=== PATIENT | female | born 1965 | race Caucasian/White ===

== ENCOUNTER 2017-11-23 18:11 | Emergency (ER) | payer OTHER ==
[2017-11-23] MEDS: NORCO, ANEXSIA 5/325MG TABLET (HYDROcodone/ACETAMINOPHEN) PO (18:27)
[2017-11-23] MEDS: NORCO 5/325MG TABLET (BULK FOR ED) PO (19:15)
== END 2017-11-23 19:25 | disposition home or self-care (01) ==
LOC: M ED 18:11
DX: S90.31XA Contusion of right foot, initial encounter (principal); S92.512A Displaced fracture of proximal phalanx of left lesser toe(s), initial encounter for closed fracture; W10.9XXA Fall (on) (from) unspecified stairs and steps, initial encounter; Y92.099 Unspecified place in other non-institutional residence as the place of occurrence of the external cause; Y93.9 Activity, unspecified; Y99.9 Unspecified external cause status; I10 Essential (primary) hypertension; Z72.0 Tobacco use; Z79.899 Other long term (current) drug therapy; Z88.0 Allergy status to penicillin
CPT/HCPCS: 73630

== ENCOUNTER 2019-02-10 16:13 | Emergency (ER) | payer OTHER ==
[~2019-02-10] VITALS: Ht 167.6 cm; Wt 81.8 kg
[~2019-02-10 16:13] MED LIST: CITA10TA2 PO; CITA20TA6 PO; DILT1CAP PO; ESTR0.022 PO; ESTR1TAB PO; FERR83TA2 PO; HYDR-3644 PO; HYDR-3715 PO; LEVO-94 PO; LEVO100T4 PO; NEXI20GR PO; PANT20TA2 PO; PRED2.5T PO; SPIR-10 PO; TIAZAC PO; TORS10TA3 PO; VERA120T2 PO
--- NOTE | 2019-02-10 16:55 | REP ---
CHEST: Single view. There is no evidence of acute infiltrate. No pleural effusion is seen. The heart is normal in size. The mediastinal silhouette is unremarkable. The visualized osseous structures are intact. IMPRESSION: No acute pulmonary disease. Electronically Signed by Ruben Cornejo MD 02/11/2019 07:13 P
[2019-02-10 17:19] LABS: BASO # 0.1 10^3/uL (0.0-0.2); BASO % 0.9 % (0.0-1.0); EOS # 0.1 10^3/uL (0.0-0.5); EOS % 1.1 % (0.0-3.0); HEMATOCRIT 46.6 % (36.0-47.0); HEMOGLOBIN 16.2 g/dl (12.0-15.5); LYMPH # 2.4 10^3/uL (1.5-5.0); LYMPH % 19.9 % (24.0-44.0); MEAN CORPUSCULAR HGB CONC 34.8 g/dl (32.0-36.5); MEAN CORPUSCULAR VOLUME 103.6 fl (80.0-96.0); MONO # 1.2 10^3/uL (0.0-0.8); MONO % 10.4 % (0.0-5.0); NEUTROPHILS # 7.8 10^3/uL (1.5-8.5); NEUTROPHILS % 66.4 % (36.0-66.0); WHITE BLOOD COUNT 11.8 10^3/uL (4.0-10.0)
[2019-02-10 17:29] LABS: BLOOD UREA NITROGEN 7 MG/DL (7-18); CALCIUM LEVEL 9.8 MG/DL (8.5-10.1); CARBON DIOXIDE LEVEL 32 MEQ/L (21-32); CHLORIDE LEVEL 99 MEQ/L (98-107); CK-MB VALUE MASS 1.2 NG/ML (<3.6); CPK CREATINE PHOSPHOKINASE 62 U/L (26-192); CREATININE FOR GFR 0.68 MG/DL (0.55-1.30); GLOMERULAR FILTRATION RATE > 60.0 (>51); GLUCOSE, FASTING 88 MG/DL (70-100); MB/CK RELATIVE INDEX 1.94 (< OR =4); POTASSIUM SERUM 3.3 MEQ/L (3.5-5.1); SODIUM LEVEL 140 MEQ/L (136-145); TROPONIN I < 0.02 NG/ML (< 0.10)
[2019-02-10] MEDS ORDERED: ALPRAZolam 0.5 MG TAB PO ONE (17:45)
[2019-02-10 17:52] LABS: FREE THYROXINE INDEX 4.2 % (1.3-4.8); MAGNESIUM LEVEL 1.4 MG/DL (1.8-2.4); T UPTAKE 33 % (30-39); THYROID STIMULATING HORMONE 0.553 uIU/ML (0.358-3.740); THYROXINE (T4) 12.6 UG/DL (4.5-12.0)
[2019-02-10 18:16] LABS: PLATELET COUNT, AUTOMATED 70 10^3/uL (150-450)
[2019-02-10] MEDS ORDERED: HYDR-643 PO (19:17)
[2019-02-10 19:29] VITALS: BP 162/86
--- NOTE | 2019-02-11 08:07 | ECGEPIP ---
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
== END 2019-02-10 19:34 | disposition home or self-care (01) ==
LOC: EDBD 16:13 → M ED 16:13
DX: F41.1 Generalized anxiety disorder (principal); I51.9 Heart disease, unspecified; E07.9 Disorder of thyroid, unspecified; Z79.890 Hormone replacement therapy; Z79.899 Other long term (current) drug therapy; Z88.0 Allergy status to penicillin

== ENCOUNTER 2019-05-07 15:50 | Inpatient (IN) | payer OTHER ==
[~2019-05-07] VITALS: Ht 170.2 cm; Wt 80.0 kg
[~2019-05-07 15:50] MED LIST changes: +HYDR-643 PO
[2019-05-07] MEDS ORDERED: BUSP5TA PO (16:08)
--- NOTE | 2019-05-07 17:10 | REP ---
PA and lateral chest: Comparisons are the portable chest dated 02/10/2019 and the PA and lateral chest dated 11/12/2012. The lung abreu are clear. The cardiac size is normal. The cande, mediastinum, and skeletal structures are unremarkable. Impression: Negative PA and lateral chest. There are no significant interval changes. Electronically Signed by Ruben Zelaya MD 05/07/2019 05:02 P
[2019-05-07] MEDS ORDERED: NS 1,000 ML IV ONE (17:15)
[2019-05-07] MEDS ORDERED: KETOROLAC 30 MG/ML VIAL (J1885) IV ONE (17:15)
[2019-05-07 18:31] LABS: BASO # 0.2 10^3/uL (0.0-0.2); BASO % 0.4 % (0.0-1.0); EOS % 0.1 % (0.0-3.0); LYMPH # 2.6 10^3/uL (1.5-5.0); LYMPH % 6.8 % (24.0-44.0); MONO # 1.7 10^3/uL (0.0-0.8); MONO % 4.3 % (0.0-5.0); NEUTROPHILS % 85.5 % (36.0-66.0)
--- NOTE | 2019-05-07 18:41 | REPVR ---
PROCEDURE INFORMATION: Exam: US Duplex Right Lower Extremity Veins, Limited Exam date and time: 05/07/2019 6:15 PM Age: 53 years old Clinical indication: Pain; Leg, upper and leg, lower; Right; Additional info: R/O dvt TECHNIQUE: Imaging protocol: Real-time Duplex ultrasound of the Right Lower Extremity with 2-D vogt scale, color Doppler flow and spectral waveform analysis with image documentation. Limited exam was focused on the right lower extremity veins. COMPARISON: US Duplex, Ext LOWER veins, bilat 08/04/2012 6:45 PM FINDINGS: Right deep veins: Unremarkable. The common femoral, femoral, proximal profunda femoral and popliteal veins are patent without thrombus. Normal Doppler waveforms. Normal compressibility and/or augmentation response. Right superficial veins: Unremarkable. Saphenofemoral junction is patent without thrombus. Soft tissues: Complex fluid collection in the right groin measuring 4.5 x 1.4 x 1.8 cm. IMPRESSION: No DVT of the right lower extremity. Electronically signed by: Manuel Ang On 05/07/2019 18:41:29 PM
[2019-05-07 18:45] LABS: ALBUMIN 3.1 GM/DL (3.2-5.2); BILIRUBIN,DIRECT 0.4 MG/DL (0.0-0.2); BILIRUBIN,TOTAL 1.2 MG/DL (0.2-1.0); POTASSIUM SERUM 2.7 MEQ/L (3.5-5.1); TOTAL PROTEIN 6.9 GM/DL (6.4-8.2)
[2019-05-07 19:02] LABS: ERYTHROCYTE SEDIMENTATION RATE 10 mm/hr (0-30)
--- NOTE | 2019-05-07 19:02 | ECGEPIP ---
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
[2019-05-07] MEDS ORDERED: IPRATROPIUM 0.5MG/ALBUTEROL 2.5MG INH SOL UD 3ML (DUONEB)(J7620) NEB ONE (19:30)
[2019-05-07] MEDS ORDERED: POTASSIUM CHLORIDE 10 MEQ SR TABLET PO ONE (19:30)
[2019-05-07 19:41] LABS: HEMATOCRIT 41.9 % (36.0-47.0); HEMOGLOBIN 15.2 g/dl (12.0-15.5); MEAN CORPUSCULAR HEMOGLOBIN 36.3 pg (27.0-33.0); PLATELET COUNT, AUTOMATED 14 10^3/uL (150-450); RED BLOOD COUNT 4.19 10^6/uL (4.00-5.40)
[2019-05-07 19:42] LABS: MEAN CORPUSCULAR HGB CONC 36.3 g/dl (32.0-36.5); NEUTROPHILS # 32.9 10^3/uL (1.5-8.5); WHITE BLOOD COUNT 38.5 10^3/uL (4.0-10.0)
[2019-05-07] MEDS ORDERED: CLINDAMYCIN 600 MG in IV 1 EA IV ONE (20:00)
[2019-05-07] MEDS ORDERED: TORS5TAB2 PO (20:51)
[2019-05-07] MEDS: BACTRIM 160MG/800MG DS TAB PO SCH (21:16)
[2019-05-07] MEDS: methylPREDNISolone INJ 125 MG/2 ML VIAL (J2930) IV SCH (21:17)
--- NOTE | 2019-05-07 21:56 | HPEPDOC ---
[facility] Medical History & Physical Date of Admission May 07, 2019 Date of Service: May 07, 2019 Attending Physician: BEBA SIFUENTSE MD History and Physical CHIEF COMPLAINT: Fever and lower extremity redness HISTORY OF PRESENT ILLNESS: 53-year-old female with past medical history of ITP status post splenectomy, hypertension and hypothyroidism presents from home with fever and right lower extremity redness. Patient was doing well up until yesterday when she developed fever, associated with mild dyspnea, along with a right lower extremity redness and groin pain. Patient has a chronic wound on her right foot, third toe wound which she has not received any care for. Patient has some redness and warmth above her ankle in the right leg, which also started recently. She has no complaints at this time, denies any cough, chest pain, vomiting, abdominal pain or diarrhea. 10 point review of system is negative except for above PAST MEDICAL HISTORY: 1. ITP. 2. Hypertension. 3. Hypothyroidism. PAST SURGICAL HISTORY: 1. Splenectomy. 2. Hysterectomy. SOCIAL HISTORY: Current smoker, half a pack per day. Social alcohol use. Denies drug use FAMILY HISTORY: Negative for heart disease ALLERGIES: Please see below. HOME MEDICATIONS: Please see below. PHYSICAL EXAMINATION: VITAL SIGNS: Please see below. GENERAL: No distress HEENT: Normocephalic, atraumatic, moist mucous membranes NECK: Supple CARDIOVASCULAR EXAMINATION: S1, S2, no murmurs RESPIRATORY EXAMINATION: Clear to auscultation, no wheezing ABDOMINAL EXAMINATION: Soft, nontender, nondistended, positive bowel sounds EXTREMITIES: Right foot third toe with open wound on the plantar surface, minimal swelling, no redness or drainage, mild tenderness. Right groin with palpable mass and mild tenderness to palpation SKIN: Mild erythema in right lower extremity above the ankle, trace edema, warm to touch NEUROLOGICAL EXAMINATION: Alert and oriented 3, no focal deficits PSYCHIATRIC EXAMINATION: Calm and cooperative LABORATORY DATA: See below. IMAGING: Lower extremity Doppler negative for DVT MICROBIOLOGY: Please see below. ASSESSMENT: 53-year-old female with past medical history of ITP status post colectomy, hypertension, hypothyroidism, being admitted for her to be flare and possible cellulitis. PLAN: 1. ITP flare Treat with high-dose steroids, Solu-Medrol 30 mg/kg per day for 7 days, no need for IVIG at this time, will monitor clinical progression and platelet levels. 2. Cellulitis. Possible right lower extremity cellulitis, Bactrim 1 tab twice a day. 3. Hypokalemia. Potassium 2.7, will supplement by mouth and IV. 4. Hypertension. Continue home spironolactone 5. Hypothyroidism. Continue levothyroxine DVT prophylaxis: SCDs GI prophylaxis: PPI Vital Signs Vital Signs Date Time Temp Pulse Resp B/P (MAP) Pulse Ox O2 Delivery O2 Flow Rate FiO2 05/07/19 16:29 05/07/19 15:51 97.7 82 18 96 Room Air Laboratory Data Labs 24H Laboratory Tests 2 05/07/19 17:50: POC Glucose (Misc Panel) 86, POC Sodium (Misc Panel) 130L, POC Potassium (Misc Panel) 2.5*L, POC Chloride (Misc Panel) 90L, POC Total CO2 (Misc Panel) 25.0, POC Blood Urea Nitrogen (Misc Panel 13, POC Ionized Calcium (Misc Panel) 4.1L, POC Creatinine (Misc Panel) 0.6, POC Hematocrit (Misc Panel) 47.0 05/07/19 17:53: Immature Granulocyte % (Auto) 2.9, Neutrophils (%) (Auto) 85.5H, Lymphocytes (%) (Auto) 6.8L, Monocytes (%) (Auto) 4.3, Eosinophils (%) (Auto) 0.1, Basophils (%) (Auto) 0.4, Neutrophils # (Auto) 32.9H, Lymphocytes # (Auto) 2.6, Monocytes # (Auto) 1.7H, Eosinophils # (Auto) 0.0, Basophils # (Auto) 0.2, Nucleated Red Blood Cells % (auto) 0.1H, Immature Platelet Fraction 18.4H, Erythrocyte Sedimentation Rate 10, Lactic Acid Level 1.2, Total Bilirubin 1.2H, Direct Bilirubin 0.4H, Aspartate Amino Transf (AST/SGOT) 35, Alanine Aminotransferase (ALT/SGPT) 26, Alkaline Phosphatase 57, C-Reactive Protein, Quantitative 13.00H, Total Protein 6.9, Albumin 3.1L, Albumin/Globulin Ratio 0.82L CBC/BMP Laboratory Tests 05/07/19 17:53 Microbiology Microbiology 05/07/19 Blood Culture, Received Pending 05/07/19 Blood Culture, Received Pending 05/07/19 Respiratory Virus Panel (PCR) (TJ) - Final, Complete Home Medications Scheduled Buspirone HCl (Buspirone HCl) 5 Mg Tablet, 5 MG PO DAILY Citalopram Hydrobromide (Citalopram HBr) 20 Mg Tab, 20 MG PO DAILY Diltiazem HCl (Diltiazem 24Hr ER) 120 Mg Cap, 120 MG PO DAILY Estradiol (Estradiol) 1 Mg Tab, 1 TAB PO DAILY Levothyroxine Sodium (Levo-T) 137 Mcg Tab, 137 MCG PO DAILY Pantoprazole Sodium (Pantoprazole Sodium) 20 Mg Tab, 20 MG PO DAILY Spironolactone (Spironolactone) 25 Mg Tab, 25 MG PO BID Torsemide (Torsemide) 5 Mg Tablet, 5 MG PO QID Allergies Coded Allergies: Penicillins (Verified Allergy, Intermediate, hives/difficulty breathing, ) A-FIB/CHADSVASC A-FIB History Current/History of A-Fib/PAF?: No BEBA SIFUENTES MD May 07, 2019 21:56
[2019-05-07] MEDS: KCL 10MEQ/100ML SWI (KRUN) 10 MEQ in IV 1 EA IV SCH (22:17)
[2019-05-07] MEDS ORDERED: LORazepam 2 MG TAB PO PRN (22:45)
[2019-05-07 22:53] VITALS: BP 150/82
[2019-05-07] MEDS: ACETAMINOPHEN TAB 650MG DOSE (2X325MG) PO PRN (23:15)
[2019-05-07] MEDS: THIAMINE 100 MG TAB PO SCH (23:15)
[2019-05-08] VITALS (10 sets, daily range): BP systolic 113–134; BP diastolic 57–82
[2019-05-08] MEDS: KCL 10MEQ/100ML SWI (KRUN) 10 MEQ in IV 1 EA IV SCH ×3 (00:03→02:47)
[2019-05-08] MEDS: LEVOTHYROXINE 137MCG TABLET (0.137MG) PO SCH (05:55)
[2019-05-08] MEDS: THIAMINE 100 MG TAB PO SCH ×2 (08:01→20:15)
[2019-05-08] MEDS: estradioL 1 MG TAB PO SCH (08:01)
[2019-05-08] MEDS: CitaloPRAM (CeleXA) 20 MG TAB PO SCH (08:01)
[2019-05-08] MEDS: busPIRone 5 MG TAB PO SCH (08:01)
[2019-05-08] MEDS: BACTRIM 160MG/800MG DS TAB PO SCH ×2 (08:01→20:15)
[2019-05-08] MEDS: MULTIVITAMINS/MINERALS THERAP 1 TAB PO SCH (08:01)
[2019-05-08] MEDS: FOLIC ACID 1 MG TAB PO SCH (08:01)
[2019-05-08] MEDS: SPIRONOLACTONE 25 MG TAB PO SCH ×2 (08:01→20:15)
[2019-05-08] MEDS: PANTOPRAZOLE 20 MG TAB PO SCH (08:04)
[2019-05-08 08:24] LABS: HEMATOCRIT 40.1 % (36.0-47.0); HEMOGLOBIN 14.6 g/dl (12.0-15.5); MEAN CORPUSCULAR HEMOGLOBIN 36.7 pg (27.0-33.0); MEAN CORPUSCULAR HGB CONC 36.4 g/dl (32.0-36.5); MEAN CORPUSCULAR VOLUME 100.8 fl (80.0-96.0); RED BLOOD COUNT 3.98 10^6/uL (4.00-5.40)
[2019-05-08 08:28] LABS: PLATELET COUNT, AUTOMATED 7 10^3/uL (150-450); WHITE BLOOD COUNT 32.8 10^3/uL (4.0-10.0)
[2019-05-08 08:44] LABS: ALBUMIN 2.6 GM/DL (3.2-5.2); ALT/SGPT 22 U/L (12-78); BILIRUBIN,TOTAL 0.4 MG/DL (0.2-1.0); BLOOD UREA NITROGEN 13 MG/DL (7-18); CALCIUM LEVEL 7.9 MG/DL (8.5-10.1); CARBON DIOXIDE LEVEL 23 MEQ/L (21-32); CHLORIDE LEVEL 105 MEQ/L (98-107); CREATININE FOR GFR 0.58 MG/DL (0.55-1.30); GLOMERULAR FILTRATION RATE > 60.0 (>51); GLUCOSE, FASTING 122 MG/DL (70-100); MAGNESIUM LEVEL 1.4 MG/DL (1.8-2.4); POTASSIUM SERUM 3.3 MEQ/L (3.5-5.1); SODIUM LEVEL 136 MEQ/L (136-145); TOTAL PROTEIN 6.7 GM/DL (6.4-8.2)
[2019-05-08] MEDS: POTASSIUM CHLORIDE 10 MEQ SR TABLET PO SCH ×2 (11:10→15:13)
[2019-05-08] MEDS: MAG SULF 1GM/100ML (MAG RUN) 1 GM in IV 1 EA IV SCH ×2 (11:11→13:03)
[2019-05-08] MEDS ORDERED: IMMUNE GLOBULIN 10% 80 GM in IV 1 EA IV SCH (13:30)
[2019-05-08] MEDS ORDERED: MAG SULF 1GM/100ML (MAG RUN) 1 GM in IV 1 EA IV SCH (16:00)
[2019-05-08] MEDS ORDERED: diphenhydrAMINE 25 MG CAP PO ONE ×3 (16:00→19:00)
[2019-05-08] MEDS ORDERED: IMMUNE GLOBULIN 10% 80 GM in IV 1 EA IV ONE (18:00)
[2019-05-08] MEDS: methylPREDNISolone INJ 125 MG/2 ML VIAL (J2930) IV SCH (20:15)
--- NOTE | 2019-05-08 23:37 | IPNPDOC ---
Date Seen The patient was seen on 05/08/19. Progress Note HISTORY OF PRESENT ILLNESS: 53-year-old female with past medical history of ITP status post splenectomy, hypertension and hypothyroidism presents from home with fever and right lower extremity redness. Patient was doing well up until yesterday when she developed fever, associated with mild dyspnea, along with a right lower extremity redness and groin pain. Patient has a chronic wound on her right foot, third toe wound which she has not received any care for. Patient has some redness and warmth above her ankle in the right leg, which also started recently. She has no complaints at this time, denies any cough, chest pain, vomiting, abdominal pain or diarrhea. 05/08/19 Seen in the morning, clinically improved, without any complaints at this time, tolerating diet. 10 point review of system is negative except for above PHYSICAL EXAMINATION: VITAL SIGNS: Please see below. GENERAL: No distress HEENT: Normocephalic, atraumatic, moist mucous membranes NECK: Supple CARDIOVASCULAR EXAMINATION: S1, S2, no murmurs RESPIRATORY EXAMINATION: Clear to auscultation, no wheezing ABDOMINAL EXAMINATION: Soft, nontender, nondistended, positive bowel sounds EXTREMITIES: Right foot third toe with open wound on the plantar surface, minimal swelling, no redness or drainage, mild tenderness. SKIN: Mild erythema in right lower extremity above the ankle, trace edema, warm to touch NEUROLOGICAL EXAMINATION: Alert and oriented 3, no focal deficits PSYCHIATRIC EXAMINATION: Calm and cooperative LABORATORY DATA: See below. IMAGING: Lower extremity Doppler negative for DVT MICROBIOLOGY: Please see below. ASSESSMENT: 53-year-old female with past medical history of ITP status post colectomy, hypertension, hypothyroidism, being admitted for her to be flare and possible cellulitis. PLAN: 1. ITP flare Continue Solu-Medrol 250 mg daily, Dr. Campos from hematology/oncology was consulted who agrees with IVIG (80 g per day for 2 days) and recommends 2 units of platelets at this time, additional workup studies were ordered. 2. Cellulitis/possible osteomyelitis. Significantly elevated CRP and pro-calcitonin, start empiric vancomycin and Merrem, will obtain right foot MRI to rule out osteomyelitis, blood cultures negative to date. 3. Hypokalemia. Continue oral supplementation 4. Hypertension. Continue home spironolactone 5. Hypothyroidism. Continue levothyroxine DVT prophylaxis: SCDs GI prophylaxis: PPI VS, I&O, 24H, Fishbone Vital Signs/I&O Vital Signs Date Time Temp Pulse Resp B/P (MAP) Pulse Ox O2 Delivery O2 Flow Rate FiO2 05/08/19 22:00 98.0 68 18 132/79 (96) 96 Room Air I&O- Last 24 Hours up to 6 AM 05/08/19 06:00 Intake Total 1900 ml Balance 1900 ml Laboratory Data 24H LABS Laboratory Tests 2 05/08/19 08:08: Nucleated Red Blood Cells % (auto) 0.2H, Differential Slide Review Report, Peripheral Blood Smear Path Consult PERIPHERAL SMEAR, Anion Gap 8, Glomerular Filtration Rate > 60.0, Calcium Level 7.9L, Magnesium Level 1.4L, Total Bilirubin 0.4#, Aspartate Amino Transf (AST/SGOT) 26, Alanine Aminotransferase (ALT/SGPT) 22, Alkaline Phosphatase 50, Total Protein 6.7, Albumin 2.6L, Albumin/Globulin Ratio 0.63L, Procalcitonin 13.82 CBC/BMP Laboratory Tests 05/08/19 08:08 Microbiology Microbiology 05/07/19 Blood Culture - Preliminary, Resulted No growth after 24 hours . All specim... 05/07/19 Blood Culture - Preliminary, Resulted No growth after 24 hours . All specim... 05/07/19 Respiratory Virus Panel (PCR) (TJ) - Final, Complete BEBA SIFUENTES MD May 08, 2019 23:36
[2019-05-08] MEDS ORDERED: VANCOMYCIN HCL 1,000 MG, VIAL MATE ADAPTER 1 EACH in D5W 250 ML IV ONE (23:45)
[2019-05-09] VITALS (28 sets, daily range): BP systolic 95–163; BP diastolic 53–85
[2019-05-09] MEDS: LEVOTHYROXINE 137MCG TABLET (0.137MG) PO SCH (06:14)
[2019-05-09 06:18] LABS: BASO # 0.1 10^3/uL (0.0-0.2); BASO % 0.2 % (0.0-1.0); HEMATOCRIT 39.7 % (36.0-47.0); HEMOGLOBIN 13.5 g/dl (12.0-15.5); LYMPH # 0.5 10^3/uL (1.5-5.0); LYMPH % 1.8 % (24.0-44.0); MEAN CORPUSCULAR HEMOGLOBIN 35.6 pg (27.0-33.0); MEAN CORPUSCULAR VOLUME 104.7 fl (80.0-96.0); MONO # 0.8 10^3/uL (0.0-0.8); MONO % 2.9 % (0.0-5.0); NEUTROPHILS % 92.9 % (36.0-66.0); RED BLOOD COUNT 3.79 10^6/uL (4.00-5.40); WHITE BLOOD COUNT 28.8 10^3/uL (4.0-10.0)
[2019-05-09 06:23] LABS: NEUTROPHILS # 26.8 10^3/uL (1.5-8.5); PLATELET COUNT, AUTOMATED 95 10^3/uL (150-450)
[2019-05-09 06:45] LABS: BLOOD UREA NITROGEN 12 MG/DL (7-18); CALCIUM LEVEL 8.2 MG/DL (8.5-10.1); CARBON DIOXIDE LEVEL 24 MEQ/L (21-32); CHLORIDE LEVEL 108 MEQ/L (98-107); CREATININE FOR GFR 0.76 MG/DL (0.55-1.30); GLOMERULAR FILTRATION RATE > 60.0 (>51); GLUCOSE, FASTING 163 MG/DL (70-100); POTASSIUM SERUM 4.7 MEQ/L (3.5-5.1); SODIUM LEVEL 136 MEQ/L (136-145)
[2019-05-09] MEDS: MAG SULF 1GM/100ML (MAG RUN) 1 GM in IV 1 EA IV SCH ×2 (08:34→10:00)
[2019-05-09] MEDS: MEROPENEM INJ 1 GM in IV 1 EA IV SCH ×2 (08:34→17:48)
[2019-05-09] MEDS ORDERED: MAG SULF 1GM/100ML (MAG RUN) 1 GM in IV 1 EA IV SCH (09:00)
[2019-05-09] MEDS: SPIRONOLACTONE 25 MG TAB PO SCH ×2 (09:21→20:32)
[2019-05-09] MEDS: FOLIC ACID 1 MG TAB PO SCH (09:21)
[2019-05-09] MEDS: estradioL 1 MG TAB PO SCH (09:24)
[2019-05-09] MEDS: busPIRone 5 MG TAB PO SCH (09:24)
[2019-05-09] MEDS: MULTIVITAMINS/MINERALS THERAP 1 TAB PO SCH (09:24)
[2019-05-09] MEDS: CitaloPRAM (CeleXA) 20 MG TAB PO SCH (09:24)
[2019-05-09] MEDS: PANTOPRAZOLE 20 MG TAB PO SCH (09:24)
[2019-05-09] MEDS: THIAMINE 100 MG TAB PO SCH ×2 (09:24→20:32)
[2019-05-09] MEDS ORDERED: MAGNESIUM SULFATE 1 GM/100 ML D5W BAG (10MG/ML) (J3475) As Ordered ONE (09:25)
--- NOTE | 2019-05-09 10:26 | CR ---
DATE OF CONSULTATION: 05/08/2019 DIAGNOSIS: ITP with profound thrombocytopenia status post splenectomy admitted with fever, leukocytosis and platelets below 10. REQUESTING PHYSICIAN: Dr. Dobbins, hospitalist service. HISTORY OF PRESENT ILLNESS: Meredith Laws is a 53-year-old woman with a 20-40 pack-year smoking history and personal history of ITP diagnosed in 2011 when she presented with flank discomfort. Details are scant. She is a sketchy historian but she describes being transferred first to [facility] and then to [facility], ultimately being followed by Dr. Prakash. She was initially treated with high-dose steroids and IVIG, presumptively also with platelet transfusions. Then as an outpatient, she was on what she describes as multiple steroid tapers. Ultimately, in 2012 she underwent splenectomy. She continued to follow up with Dr. Prakash after that, still requiring steroid tapers. She denies ever receiving rituximab or other medicines for her thrombocytopenia. Of note, she presented with hemoptysis in 2011 and some flank discomfort leading to her diagnosis. She denies hemoptysis currently but several days ago noticed some bruising around her right ankle, had a fever Saturday night and body aching and sweating. In the emergency room here yesterday, WBC was 38.5, hemoglobin 15, hematocrit 42, platelets 14 with immature platelet fraction 18%, ESR was 10. She was started on steroids. The following morning, this morning, platelets had dropped to 7. Vital signs during this admission normal. Right lower extremity ultrasound negative for DVT and also notes complex fluid collection in the right groin measuring up to 4.5 cm. Chest x-ray with normal cardiac size, clear lung abreu, normal appearing mediastinum and skeletal structures unremarkable. Chemistries overall unremarkable. Normal renal and liver function, mild hypomagnesemia and hypokalemia, albumin 2.6. In contrast, in January, platelets were 70. Immature platelet fraction 13, magnesium again low, potassium also mildly low at that time, albumin not checked. Deeper chart review shows chronic leukocytosis since at least 2011 ranging from 10-21; the current leukocytosis in the 30s is definitely new. PAST MEDICAL HISTORY: Hypertension, 20 - 30 pack-year smoking history started at age 17, the patient reports that most one half-pack per day currently smoking, hypothyroidism, gastroesophageal reflux disease (GERD), anxiety. PAST SURGICAL HISTORY: Appendectomy, gastric sleeve, REBECCA-BSO, right foot fracture. ALLERGIES: PENICILLIN. CURRENT MEDICATIONS: - buspirone - citalopram - diltiazem - Estradiol - pantoprazole - spironolactone - folic acid - multivitamin - levothyroxine - lorazepam - acetaminophen In addition, inpatient receiving: - Bactrim DS - methylprednisolone - electrolyte repletion SOCIAL HISTORY: The patient is a . She has three daughters, one of them lives nearby. 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 Approximate 30 pack-year smoking history, current smoker. Alcohol: Drinks on Fridays and Saturdays up to four drinks each night. Her primary care is Dr. Barrett at [facility]. FAMILY HISTORY: Negative for malignancy. REVIEW OF SYSTEMS: Meredith denies hemoptysis. Has a chronic smoker's cough, acknowledges some easy bruising some times. Denies unintended weight loss, new musculoskeletal pain, headache, visual disturbance, chest pain, abdominal pain or frequent infections. FOCUSED PHYSICAL EXAM: Vital signs: Temperature 98.1, blood pressure 132/79, heart rate 68, respiratory rate 18, oxygen saturation 96% on room air. Patient is a normal weight, slender older for age appearing middle aged woman, cheerful, good historian. HEENT: No scleral icterus. Respiratory: Quite dense inspiratory wheezes bilaterally with some honking sounds. Cardiac: S1, S2. Regular rate and rhythm. No murmur nor gallop. Abdomen: Soft, nontender. No palpable hepatomegaly. No dullness in the spleen area. No palpable mass. Extremities: No edema. Lymph nodes: No palpable submandibular, cervical, supraclavicular or axillary adenopathy. No palpable inguinal adenopathy. There is just a kind of fluctuant fullness in the right inguinal area without the appearance of any swelling. No erythema or warmth. Skin: Some blotchy, non blanching coalesced petechiae versus cellulitic rash involving the right ankle pretibial area with some slight scattered petechiae and/or streaky ecchymoses involving the left ankle. No inguinal area petechiae. No abdominal or truncal petechiae. LABORATORIES: As described. IMPRESSION: 53-year-old woman with history of ITP, status post splenectomy many years ago and a history of requiring recurrent steroid tapers following her splenectomy, admitted with fever, malaise and found to have profound thrombocytopenia, dropping from 14 to 7 of platelet count in 12 hours with what looks like petechiae involving her right ankle, though she denies any trauma to that area and possible left ankle petechiae without any other sites. At least 30 pack-year smoking history, current smoker with dense wheezes on chest exam, borderline candidate in terms of age for low-dose lung screening. Fever without explanation or cause. New acute on chronic leukocytosis, uncertain etiology. My suspicion is Meredith has an acute on chronic episode of ITP as opposed to another hematologic process driving her platelet drop. The leukocytosis may be secondary to infection, possibly secondary to another hematologic process, it could also be secondary to smoking as she is a chronic smoker and has had chronic mild leukocytosis for years. Peripheral smear is overall unremarkable showing new leukocytosis with left shift and low platelet count. PLAN: 1. I agree with current high-dose steroids with Solu-Medrol. 2. Complete platelet transfusion and IVIG treatment as already ordered. 3. Follow platelet count q. 12 hours. Continue platelet transfusions for platelet count less than 10 due to risk of intracranial bleed spontaneously; and for platelet count less than 20 with evidence of bleeding, such as petechiae. 4. I am unsure whether [facility] has a cellulitis or whether her fever may be due to another process as yet unclear. Given her smoking history and her fairly abnormal lung sounds on exam, chest CT with contrast seems warranted to rule out an underlying pneumonia and/or possible malignant process, for which she is at risk. Thank you for this consult. We will follow.
--- NOTE | 2019-05-09 12:54 | PHACANCOPD ---
PHARMACY VANCOMYCIN DOSING Pt Demographics Demographics Patient Age:53 , Weight:80.000 , Gender: female Adjusted Body Weight Date: 05/09/19, Adjusted Body Weight: Kg Events Past 24 Hours Events Past 24 Hours: YES: Change in CrCl, Elevation in WBC Vancomycin Vancomycin indication: Empiric Coverage for SSTI/Osteomyelitis Vancomycin Target Ranges: 15-20 mcg/ml Vancomycin Load Y/N: Yes Load Dose Date Time Vancomycin Load Dose: 1000mg Date: 05/09/19 Time: 1100 Vancomycin Dose Date: 05/09/19. Current Vancomycin Dose: [ 1 gram every 8 hours @1600 ] Intermittent Dosing?: No Labs Labs Vital Signs Label Value Date Time Patient Temperature 96.9 degrees F 05/09/19 0746 Temperature Source Temporal 05/09/19 0746 Patient Temperature 97.5 degrees F 05/09/19 0710 Temperature Source Temporal 05/09/19 0710 Patient Temperature 97.4 degrees F 05/09/19 0640 Temperature Source Temporal 05/09/19 0640 Patient Temperature 97.1 degrees F 05/09/19 0610 Temperature Source Temporal 05/09/19 0610 Item Value Date Time White Blood Count 38.5 10^3/uL *H 05/07/19 1753 White Blood Count 32.8 10^3/uL *H 05/08/19 0808 White Blood Count 28.8 10^3/uL H 05/09/19 0605 Procalcitonin 13.82 NG/ML 05/08/19 0808 Micro Microbiology 05/07/19 Blood Culture - Preliminary, Resulted No growth after 24 hours . All specim... 05/07/19 Blood Culture - Preliminary, Resulted No growth after 24 hours . All specim... 05/07/19 Respiratory Virus Panel (PCR) (TJ) - Final, Complete Creatinine Clearance Date:05/09/19. Creatinine Clearance: [ 87.6 mL/hr ]. Assessment and Plan Maintaining Current Dose?: Yes Reason for dose change: No Dose Change Pharmacist Note Pharmacist Note Date: 05/09/19. Pharmacist note: Patient is a 53-year-old female who has a history of chronic immune thrombocytopenia who was admitted to [facility] for an acute on chronic episode. She was placed on broad-spectrum antibiotics for empiric converage consisting of meropenem and vancomycin for cellulitis and possible osteomyelitis. The patient does not have a history of vancomycin therapy at [facility]. A loading dose of 1 gram was given today at 1100, with a subsequent maintenance dose of 1000mg scheduled every eight hours starting at 1600. A vancomycin trough was scheduled for 1500 tomorrow, with a goal trough of 15-20 mcg/dL for possible osteomyelitis. A BMP was ordered with the morning lab draw for 05/10/19. We will continue to monitor and make adjustments as needed. [facility] May 09, 2019 12:54
[2019-05-09] MEDS: VANCOMYCIN HCL 1,000 MG, VIAL MATE ADAPTER 1 EACH in D5W 250 ML IV SCH (16:32)
[2019-05-09] MEDS ORDERED: IMMUNE GLOBULIN 10% 80 GM in IV 1 EA IV ONE (18:00)
--- NOTE | 2019-05-09 18:44 | IPNPDOC ---
Date Seen The patient was seen on 05/09/19. Progress Note SUBJECTIVE: 53-year-old female with past medical history of ITP status post splenectomy, hypertension and hypothyroidism presents from home with fever and right lower extremity redness. Patient was doing well up until yesterday when she developed fever, associated with mild dyspnea, along with a right lower extremity redness and groin pain. Patient has a chronic wound on her right foot, third toe wound which she has not received any care for. Patient has some redness and warmth above her ankle in the right leg, which also started recently. She has no complaints at this time, denies any cough, chest pain, vomiting, abdominal pain or diarrhea. 05/08/19 Seen in the morning, clinically improved, without any complaints at this time, tolerating diet. 05/09/19 Patient comfortable in bed, clinically back to her baseline, without any complaints at this time. 10 point review of system is negative except for above PHYSICAL EXAMINATION: VITAL SIGNS: Please see below. GENERAL: No distress HEENT: Normocephalic, atraumatic, moist mucous membranes NECK: Supple CARDIOVASCULAR EXAMINATION: S1, S2, no murmurs RESPIRATORY EXAMINATION: Clear to auscultation, no wheezing ABDOMINAL EXAMINATION: Soft, nontender, nondistended, positive bowel sounds EXTREMITIES: Right foot third toe with open wound on the plantar surface, no redness or drainage, mild tenderness. SKIN: Mild erythema in right lower extremity above the ankle, trace edema, warm to touch NEUROLOGICAL EXAMINATION: Alert and oriented 3, no focal deficits PSYCHIATRIC EXAMINATION: Calm and cooperative LABORATORY DATA: See below. MICROBIOLOGY: Please see below. ASSESSMENT: 53-year-old female with past medical history of ITP status post colectomy, hypertension, hypothyroidism, being admitted for her to be flare and possible cellulitis. PLAN: 1. ITP flare Continue Solu-Medrol 250 mg daily, continue IVIG 80 g per day, second and final dose today, status post 2 units of platelets, significant improvement in platelets noted, further workup pending, hematology evaluation appreciated. 2. Cellulitis/possible osteomyelitis. Significantly elevated CRP and pro-calcitonin, continue empiric vancomycin and Merrem, MRI of right foot pending, blood cultures negative to date. 3. Hypertension. Continue home spironolactone 4. Hypothyroidism. Continue levothyroxine DVT prophylaxis: SCDs GI prophylaxis: PPI VS, I&O, 24H, Fishbone Vital Signs/I&O Vital Signs Date Time Temp Pulse Resp B/P (MAP) Pulse Ox O2 Delivery O2 Flow Rate FiO2 05/09/19 14:20 52 115/62 05/09/19 14:00 96.6 18 95 Room Air I&O- Last 24 Hours up to 6 AM 05/09/19 06:00 Intake Total 2511 ml Balance 2511 ml Laboratory Data 24H LABS Laboratory Tests 2 05/09/19 06:05: Immature Granulocyte % (Auto) 2.2, Neutrophils (%) (Auto) 92.9H, Lymphocytes (%) (Auto) 1.8L, Monocytes (%) (Auto) 2.9, Eosinophils (%) (Auto) 0.0, Basophils (%) (Auto) 0.2, Neutrophils # (Auto) 26.8H, Lymphocytes # (Auto) 0.5L, Monocytes # (Auto) 0.8, Eosinophils # (Auto) 0.0, Basophils # (Auto) 0.1, Nucleated Red Bl ood Cells % (auto) 0.2H, Immature Platelet Fraction 13.8H, Anion Gap 4L, Glomerular Filtration Rate > 60.0, Calcium Level 8.2L 05/09/19 16:57: CBC/BMP Laboratory Tests 05/09/19 06:05 Microbiology Microbiology 05/07/19 Blood Culture - Preliminary, Resulted No growth after 24 hours . All specim... 05/07/19 Blood Culture - Preliminary, Resulted No growth after 24 hours . All specim... 05/07/19 Respiratory Virus Panel (PCR) ([facility]) - Final, Complete BEBA SIFUENTES MD May 09, 2019 18:44
[2019-05-09] MEDS: methylPREDNISolone INJ 125 MG/2 ML VIAL (J2930) IV SCH (20:32)
[2019-05-10] VITALS (7 sets, daily range): BP systolic 116–149; BP diastolic 49–86
[2019-05-10] MEDS: VANCOMYCIN HCL 1,000 MG, VIAL MATE ADAPTER 1 EACH in D5W 250 ML IV SCH ×4 (01:22→16:35)
[2019-05-10] MEDS: MEROPENEM INJ 1 GM in IV 1 EA IV SCH ×3 (02:43→18:11)
[2019-05-10] MEDS: LEVOTHYROXINE 137MCG TABLET (0.137MG) PO SCH (05:27)
[2019-05-10 07:02] LABS: BASO % 0.2 % (0.0-1.0); HEMATOCRIT 38.6 % (36.0-47.0); HEMOGLOBIN 13.5 g/dl (12.0-15.5); LYMPH # 0.8 10^3/uL (1.5-5.0); LYMPH % 4.5 % (24.0-44.0); MEAN CORPUSCULAR HEMOGLOBIN 36.9 pg (27.0-33.0); MEAN CORPUSCULAR VOLUME 105.5 fl (80.0-96.0); MONO # 0.8 10^3/uL (0.0-0.8); MONO % 4.5 % (0.0-5.0); NEUTROPHILS # 15.5 10^3/uL (1.5-8.5); NEUTROPHILS % 88.7 % (36.0-66.0); PLATELET COUNT, AUTOMATED 187 10^3/uL (150-450); RED BLOOD COUNT 3.66 10^6/uL (4.00-5.40); WHITE BLOOD COUNT 17.5 10^3/uL (4.0-10.0)
[2019-05-10 07:24] LABS: BLOOD UREA NITROGEN 15 MG/DL (7-18); CALCIUM LEVEL 8.2 MG/DL (8.5-10.1); CARBON DIOXIDE LEVEL 22 MEQ/L (21-32); CHLORIDE LEVEL 110 MEQ/L (98-107); CREATININE FOR GFR 0.66 MG/DL (0.55-1.30); GLOMERULAR FILTRATION RATE > 60.0 (>51); GLUCOSE, FASTING 130 MG/DL (70-100); MAGNESIUM LEVEL 2.6 MG/DL (1.8-2.4); POTASSIUM SERUM 4.2 MEQ/L (3.5-5.1); SODIUM LEVEL 134 MEQ/L (136-145)
[2019-05-10] MEDS: THIAMINE 100 MG TAB PO SCH (08:30)
[2019-05-10] MEDS: SPIRONOLACTONE 25 MG TAB PO SCH ×2 (08:34→20:57)
[2019-05-10] MEDS: MULTIVITAMINS/MINERALS THERAP 1 TAB PO SCH (08:34)
[2019-05-10] MEDS: PANTOPRAZOLE 20 MG TAB PO SCH (08:34)
[2019-05-10] MEDS: FOLIC ACID 1 MG TAB PO SCH (08:34)
[2019-05-10] MEDS: busPIRone 5 MG TAB PO SCH (08:34)
[2019-05-10] MEDS: CitaloPRAM (CeleXA) 20 MG TAB PO SCH (08:34)
[2019-05-10] MEDS: estradioL 1 MG TAB PO SCH (08:41)
--- NOTE | 2019-05-10 10:24 | REP ---
REASON FOR EXAM: Assess for osteomyelitis involving the 3rd digit. COMPARISON: None. Dose of contrast administration has not been reported. There is patchy and somewhat diffuse T2 hypersignal seen throughout the plantar soft tissues. Motion artifact obscures precise detailed imaging of the distal aspects of all digits. There is some evidence of diffuse T2 hypersignal in the distal phalanx of the 3rd digit. However, this is seen only on the sagittal images. There is no evidence of a gross joint effusion. Degenerative changes are seen throughout the foot and particularly the midfoot. Asymmetric joint space narrowing is seen involving the 1st and 2nd cuneiform-metatarsal joints with subchondral T2 hypersignal and tiny subchondral cyst formation. Limited evaluation of all imaged flexor and extensor tendons shows them to be intact and of normal appearing low signal throughout. There is no evidence of an abscess. IMPRESSION: 1. Exam limitations, as described above. There is mild but diffuse edema throughout the plantar soft tissues, which is nonspecific. There is no definite evidence of osteomyelitis; however, there is some evidence to suggest diffuse marrow edema involving the distal aspect of the 3rd digit, which is the digit of interest as per history. Followup is recommended if clinically relevant. 2. There are degenerative changes, as described above, involving the foot. In addition, there are degenerative changes seen involving the ankle region. Unreviewed
--- NOTE | 2019-05-10 13:52 | IPN ---
DATE: 05/10/2019 DIAGNOSIS: Idiopathic thrombocytopenia purpura (ITP). INTERVAL HISTORY: Meredith has had an excellent response to Solu-Medrol and IVIG, and her leukocytosis is improved. Platelets today 187. I spoke with her this afternoon to suggest prednisone taper, quite slow and gradual, and followup in outpatient clinic after her discharge. She was agreeable to this. ODALIS
[2019-05-10] MEDS: methylPREDNISolone INJ 125 MG/2 ML VIAL (J2930) IV SCH (20:57)
--- NOTE | 2019-05-10 22:26 | IPNPDOC ---
Date Seen The patient was seen on 05/10/19. Progress Note SUBJECTIVE: 53-year-old female with past medical history of ITP status post splenectomy, hypertension and hypothyroidism presents from home with fever and right lower extremity redness. Patient was doing well up until yesterday when she developed fever, associated with mild dyspnea, along with a right lower extremity redness and groin pain. Patient has a chronic wound on her right foot, third toe wound which she has not received any care for. Patient has some redness and warmth above her ankle in the right leg, which also started recently. She has no complaints at this time, denies any cough, chest pain, vomiting, abdominal pain or diarrhea. 05/08/19 Seen in the morning, clinically improved, without any complaints at this time, tolerating diet. 05/09/19 Patient comfortable in bed, clinically back to her baseline, without any complaints at this time. 05/10/19 No acute events overnight, now asymptomatic, without any complaints at this time. 10 point review of system is negative except for above PHYSICAL EXAMINATION: VITAL SIGNS: Please see below. GENERAL: No distress HEENT: Normocephalic, atraumatic, moist mucous membranes NECK: Supple CARDIOVASCULAR EXAMINATION: S1, S2, no murmurs RESPIRATORY EXAMINATION: Clear to auscultation, no wheezing ABDOMINAL EXAMINATION: Soft, nontender, nondistended, positive bowel sounds EXTREMITIES: Right foot third toe with open wound on the plantar surface, no redness or drainage, mild tenderness. SKIN: Mild erythema in right lower extremity above the ankle, trace edema, warm to touch NEUROLOGICAL EXAMINATION: Alert and oriented 3, no focal deficits PSYCHIATRIC EXAMINATION: Calm and cooperative LABORATORY DATA: See below. MICROBIOLOGY: Please see below. ASSESSMENT: 53-year-old female with past medical history of ITP status post colectomy, hypertension, hypothyroidism, being admitted for her to be flare and possible cellulitis. PLAN: 1. ITP flare Continue Solu-Medrol 250 mg daily, s/p IVIG, status post 2 units of platelets, significant improvement in platelets, plan for steroid taper & discharge tomorrow, hematology evaluation appreciated. 2. Cellulitis/possible osteomyelitis. Significantly elevated CRP and pro-calcitonin, continue empiric vancomycin and Merrem, MRI with edema of 3rd digit, no discrete osteo although study was of poor quality, has had significant improvement after initiation of broad spectrum antibiotics, will attempt to get inpatient Podiatry evaluation if possible, otherwise will arrange for outpatient follow up, blood cultures negative to date. 3. Hypertension. Continue home spironolactone 4. Hypothyroidism. Continue levothyroxine DVT prophylaxis: SCDs GI prophylaxis: PPI VS, I&O, 24H, Fishbone Vital Signs/I&O Vital Signs Date Time Temp Pulse Resp B/P (MAP) Pulse Ox O2 Delivery O2 Flow Rate FiO2 05/10/19 14:00 96.5 55 18 149/81 (103) 98 Room Air I&O- Last 24 Hours up to 6 AM 05/10/19 05:59 Intake Total 2560 ml Balance 2560 ml Laboratory Data 24H LABS Laboratory Tests 2 05/10/19 06:41: Immature Granulocyte % (Auto) 2.1, Neutrophils (%) (Auto) 88.7H, Lymphocytes (%) (Auto) 4.5L, Monocytes (%) (Auto) 4.5, Eosinophils (%) (Auto) 0.0, Basophils (%) (Auto) 0.2, Neutrophils # (Auto) 15.5H, Lymphocytes # (Auto) 0.8L, Monocytes # (Auto) 0.8, Eosinophils # (Auto) 0.0, Basophils # (Auto) 0.0, Nucleated Red Blood Cells % (auto) 0.2H, Anion Gap 2L, Glomerular Filtration Rate > 60.0, Calcium Level 8.2L, Magnesium Level 2.6H 05/10/19 15:10: Vancomycin Level Trough 14.6 CBC/BMP Laboratory Tests 05/10/19 06:41 Microbiology Microbiology 05/07/19 Blood Culture - Preliminary, Resulted No Growth after 72 hours. All specime... 05/07/19 Blood Culture - Preliminary, Resulted No Growth after 72 hours. All specime... 05/07/19 Respiratory Virus Panel (PCR) ([facility]) - Final, Complete BEBA SIFUENTES MD May 10, 2019 22:26
[2019-05-11] MEDS: VANCOMYCIN HCL 1,000 MG, VIAL MATE ADAPTER 1 EACH in D5W 250 ML IV SCH ×2 (00:05→08:03)
[2019-05-11] MEDS: ACETAMINOPHEN TAB 650MG DOSE (2X325MG) PO PRN (01:40)
[2019-05-11] MEDS: MEROPENEM INJ 1 GM in IV 1 EA IV SCH ×2 (01:40→09:17)
[2019-05-11] MEDS: LEVOTHYROXINE 137MCG TABLET (0.137MG) PO SCH (05:53)
[2019-05-11 06:00] VITALS: BP 149/89
[2019-05-11 06:23] LABS: HEMATOCRIT 40.2 % (36.0-47.0); HEMOGLOBIN 13.6 g/dl (12.0-15.5); MEAN CORPUSCULAR HEMOGLOBIN 35.9 pg (27.0-33.0); MEAN CORPUSCULAR HGB CONC 33.8 g/dl (32.0-36.5); MEAN CORPUSCULAR VOLUME 106.1 fl (80.0-96.0); PLATELET COUNT, AUTOMATED 281 10^3/uL (150-450); RED BLOOD COUNT 3.79 10^6/uL (4.00-5.40); WHITE BLOOD COUNT 11.8 10^3/uL (4.0-10.0)
[2019-05-11 06:47] LABS: ERYTHROCYTE SEDIMENTATION RATE 30 mm/hr (0-30)
[2019-05-11 06:53] LABS: BLOOD UREA NITROGEN 17 MG/DL (7-18); C REACTIVE PROTEIN QUANTITATIV 1.61 MG/DL (0.00-0.30); CALCIUM LEVEL 8.2 MG/DL (8.5-10.1); CARBON DIOXIDE LEVEL 22 MEQ/L (21-32); CHLORIDE LEVEL 109 MEQ/L (98-107); CREATININE FOR GFR 0.62 MG/DL (0.55-1.30); GLOMERULAR FILTRATION RATE > 60.0 (>51); GLUCOSE, FASTING 112 MG/DL (70-100); POTASSIUM SERUM 4.2 MEQ/L (3.5-5.1); SODIUM LEVEL 137 MEQ/L (136-145)
[2019-05-11] MEDS: MULTIVITAMINS/MINERALS THERAP 1 TAB PO SCH (08:03)
[2019-05-11] MEDS: estradioL 1 MG TAB PO SCH (08:03)
[2019-05-11] MEDS: PANTOPRAZOLE 20 MG TAB PO SCH (08:03)
[2019-05-11] MEDS: FOLIC ACID 1 MG TAB PO SCH (08:03)
[2019-05-11] MEDS: CitaloPRAM (CeleXA) 20 MG TAB PO SCH (08:03)
[2019-05-11] MEDS: SPIRONOLACTONE 25 MG TAB PO SCH (08:03)
[2019-05-11] MEDS: busPIRone 5 MG TAB PO SCH (08:03)
[2019-05-11 08:07] VITALS: BP 147/86
[2019-05-11] MEDS ORDERED: BACT800T5 PO (10:43)
[2019-05-11] MEDS ORDERED: PRED10TA2 PO (10:43)
--- NOTE | 2019-05-11 12:28 | DS.PDOC ---
Discharge Summary General Date of Admission May 07, 2019 at 20:37 Date of Discharge 05/11/19 Attending Physician: BEBA SIFUENTES MD Discharge Summary PROCEDURES PERFORMED DURING STAY: None. ADMITTING DIAGNOSES: 1. ITP flare up, toe infection. DISCHARGE DIAGNOSES: 1. ITP flare up, toe infection. COMPLICATIONS/CHIEF COMPLAINT: Cellulitis;Chronic Itp;Htn;Hypothyroidism. HISTORY OF PRESENT ILLNESS: 53-year-old female with past medical history of ITP, hypertension, hypothyroidism, was admitted for ITP flare up, likely secondary to infection. Patient has a chronic right foot third toe wound which she has not followed up with anyone for months. She presented with significant leukocytosis and labs consistent with ITP flare up. Patient was treated with high-dose IV steroids and 2 days of IVIG (1 g/kg) sees. Patient was advised by hematology oncology, who agree with this plan and recommended a slow taper with outpatient follow-up. Patient had significantly abnormal inflammatory labs along with significantly elevated CRP, blood cultures were negative, MRI was done which s howed edema but did not show any discrete evidence for osteomyelitis. Patient wishes to go home and follow-up with podiatry in the outpatient setting instead of being seen in the hospital. Clinical and lab improvement was noted with antibiotics, MRSA PCR was negative, patient will be discharged on Bactrim for 10 days while she is strongly advised to follow with her PCP and solar installer during this time, so she can receive further care and antibiotics if needed. Patient agrees with this plan and reports that she will follow with a solar installer within 1 week. She is currently clinically and hemodynamically stable for discharge and outpatient follow-up. HOSPITAL COURSE: As above. DISCHARGE MEDICATIONS: Please see below. ALLERGIES: Please see below. PHYSICAL EXAMINATION: VITAL SIGNS: Please see below. GENERAL: No distress HEENT: Normocephalic, atraumatic, moist mucous membranes NECK: Supple CARDIOVASCULAR EXAMINATION: S1, S2, no murmurs RESPIRATORY EXAMINATION: Clear to auscultation, no wheezing ABDOMINAL EXAMINATION: Soft, nontender, nondistended, positive bowel sounds EXTREMITIES: Right foot third toe with wound on the basal surface, no drainage, no surrounding erythema, edema or tenderness SKIN: No rash NEUROLOGICAL EXAMINATION: Alert and oriented 3, no focal deficits PSYCHIATRIC EXAMINATION: Calm and cooperative LABORATORY DATA: Please see below. IMAGING: MRI negative for osteomyelitis PROGNOSIS: Fair ACTIVITY: As tolerated. DIET: Cardiac DISCHARGE PLAN: Follow with solar installer, business office coordinator and PCP within 1 week DISPOSITION: 01 Home, Self-Care. DISCHARGE INSTRUCTIONS: 1. As above. DISCHARGE CONDITION: Stable. TIME SPENT ON DISCHARGE: Greater than 35 minutes. Vital Signs/I&Os Vital Signs Date Time Temp Pulse Resp B/P (MAP) Pulse Ox O2 Delivery O2 Flow Rate FiO2 05/11/19 08:07 106 147/86 05/11/19 06:00 97.1 18 99 Room Air I&O- Last 24 Hours up to 6 AM 05/11/19 06:00 Intake Total 2080 ml Balance 2080 ml Laboratory Data Labs 24H Laboratory Tests 2 05/10/19 15:10: Vancomycin Level Trough 14.6 05/11/19 05:52: Nucleated Red Blood Cells % (auto) 0.0, Erythrocyte Sedimentation Rate 30, Anion Gap 6L, Glomerular Filtration Rate > 60.0, Calcium Level 8.2L, C-Reactive Protein, Quantitative 1.61H CBC/BMP Laboratory Tests 05/11/19 05:52 Microbiology Microbiology 05/07/19 Blood Culture - Preliminary, Resulted No Growth after 72 hours. All specime... 05/07/19 Blood Culture - Preliminary, Resulted No Growth after 72 hours. All specime... 05/07/19 Respiratory Virus Panel (PCR) ([facility]) - Final, Complete Discharge Medications Scheduled Buspirone HCl (Buspirone HCl) 5 Mg Tablet, 5 MG PO DAILY, (Reported) Citalopram Hydrobromide (Citalopram HBr) 20 Mg Tab, 20 MG PO DAILY, (Reported) Diltiazem HCl (Diltiazem 24Hr ER) 120 Mg Cap, 120 MG PO DAILY, (Reported) Estradiol (Estradiol) 1 Mg Tab, 1 TAB PO DAILY, (Reported) Levothyroxine Sodium (Levo-T) 137 Mcg Tab, 137 MCG PO DAILY, (Reported) Pantoprazole Sodium (Pantoprazole Sodium) 20 Mg Tab, 20 MG PO DAILY, (Reported) Prednisone (Prednisone) 10 Mg Tablet, 1 TAB PO DAILY Slow taper: 5 tabs daily x5 days then 4 tabs daily x5 days then 3 tabs daily x5 days. Further tapering as per [employer] Range [employer]. Sulfamethoxazole/Trimethoprim (Bactrim Ds Tablet) 1 Each Tablet, 1 TAB PO BID Torsemide (Torsemide) 5 Mg Tablet, 5 MG PO QID, (Reported) Allergies Coded Allergies: Penicillins (Verified Allergy, Intermediate, hives/difficulty breathing, 05/07/19) BEBA SIFUENTES MD May 11, 2019 12:28
== END 2019-05-11 12:00 | disposition home or self-care (01) | DRG 813 ==
LOC: M ED 15:50 → M ED INP 20:37 → ENRESERV 21:54 → M MSPAV 22:53
PROVIDERS: ADMIT Internal Medicine; ATTEND Internal Medicine
PROC: 30233R1 Transfusion of Nonautologous Platelets into Peripheral Vein, Percutaneous Approach (ICD-10-PCS; principal; 2019-05-09)
DX: D69.3 Immune thrombocytopenic purpura (principal); L03.031 Cellulitis of right toe; I10 Essential (primary) hypertension; E03.9 Hypothyroidism, unspecified; Z86.2 Personal history of diseases of the blood and blood-forming organs and certain disorders involving the immune mechanism; Z90.79 Acquired absence of other genital organ(s); F17.210 Nicotine dependence, cigarettes, uncomplicated; E87.6 Hypokalemia; R50.9 Fever, unspecified; D72.829 Elevated white blood cell count, unspecified; Z90.81 Acquired absence of spleen; K21.9 Gastro-esophageal reflux disease without esophagitis; Z88.1 Allergy status to other antibiotic agents

== ENCOUNTER 2020-07-28 19:07 | Inpatient (IN) | payer OTHER ==
[~2020-07-28] VITALS: Ht 170.2 cm; Wt 77.5 kg
[~2020-07-28 19:07] MED LIST changes: +BACT800T5 PO; +BUSP5TA PO; -PANT20TA2 PO; +PANT20TA6 PO; +PRED10TA2 PO; +TORS5TAB2 PO
[2020-07-28 21:11] LABS: BASO # 0.2 10^3/uL (0.0-0.2); BASO % 1.4 % (0.0-1.0); EOS # 0.2 10^3/uL (0.0-0.5); EOS % 1.4 % (0.0-3.0); HEMATOCRIT 46.2 % (36.0-47.0); HEMOGLOBIN 16.3 g/dl (12.0-15.5); LYMPH # 2.3 10^3/uL (1.5-5.0); LYMPH % 18.1 % (24.0-44.0); MEAN CORPUSCULAR HEMOGLOBIN 36.2 pg (27.0-33.0); MEAN CORPUSCULAR HGB CONC 35.3 g/dl (32.0-36.5); MEAN CORPUSCULAR VOLUME 102.7 fl (80.0-96.0); MONO # 1.4 10^3/uL (0.0-0.8); MONO % 10.8 % (2.0-8.0); NEUTROPHILS # 8.1 10^3/uL (1.5-8.5); NEUTROPHILS % 64.3 % (36.0-66.0); WHITE BLOOD COUNT 12.6 10^3/uL (4.0-10.0)
[2020-07-28 21:18] LABS: PLATELET COUNT, AUTOMATED 3 10^3/uL (150-450)
[2020-07-28] MEDS ORDERED: methylPREDNISolone 125MG 2ML VIAL IV ONE (21:30)
[2020-07-28] MEDS ORDERED: diphenhydrAMINE 50MG/ML VIAL (J1200) IV ONE (21:30)
[2020-07-28 21:34] LABS: BLOOD UREA NITROGEN 8 MG/DL (7-18); CALCIUM LEVEL 8.8 MG/DL (8.5-10.1); CARBON DIOXIDE LEVEL 27 MEQ/L (21-32); CHLORIDE LEVEL 102 MEQ/L (98-107); CREATININE FOR GFR 0.83 MG/DL (0.55-1.30); GLOMERULAR FILTRATION RATE > 60.0 (>51); GLUCOSE, FASTING 86 MG/DL (70-100); POTASSIUM SERUM 3.3 MEQ/L (3.5-5.1); SODIUM LEVEL 136 MEQ/L (136-145)
[2020-07-28 22:02] VITALS: BP 118/70
[2020-07-28 22:14] VITALS: BP 124/74
[2020-07-28 22:16] VITALS: BP 124/74
[2020-07-28 22:37] VITALS: BP 128/63
[2020-07-28] MEDS ORDERED: TIAZ1CAP2 PO (22:48)
[2020-07-28] MEDS ORDERED: TORS5TAB2 PO (22:48)
[2020-07-28] MEDS ORDERED: BIOT1CAP2 PO (22:48)
[2020-07-28] MEDS ORDERED: BACT800T5 PO (22:48)
[2020-07-28] MEDS ORDERED: SPIR-10 PO (22:48)
[2020-07-28 23:02] VITALS: BP 114/62
[2020-07-28 23:18] VITALS: BP 130/71
--- NOTE | 2020-07-28 23:22 | HPEPDOC ---
[facility] Medical History & Physical Date of Admission Jul 28, 2020 Date of Service: Jul 28, 2020 History and Physical CHIEF COMPLAINT: Low platelets on blood work HISTORY OF PRESENT ILLNESS: 54-year-old female history of ITP, hypertension, hypothyroidism who was undergoing routine blood work with her primary care physician and noted to have low platelet count. She was asked to come to the hospital by her PCP. Patient tells me she has a history of ITP and this has happened in the past she had a suspicion she was having another bout of ITP because she noticed petechia developing again around her legs and arms which typically happens when her ITP flares up. She denies active bleeding. She does have a wound on her right foot on the second toe with an ulcer with a bandage over top of it which we did not remove as did not provoke any bleeding as her platelets were 3. She is following up with that wound with Dr. Garner and is currently taking Bactrim. Patient denies any chest pain or shortness of breath denies fevers or chills. Patient will be admitted to the medical service due to thrombocytopenia presumed to be an ITP flare. PAST MEDICAL/SURGICAL HISTORY: ITP Hypertension Hypothyroidism Splenectomy 2013 Hysterectomy SOCIAL HISTORY: Drinks alcohol only socially Endorses smoking tobacco about half a pack a day Denies illicit drug use FAMILY HISTORY: Reviewed and none contributory to this admission ALLERGIES: Please see below. REVIEW OF SYSTEMS: 10 point review of systems complete all negative otherwise stated in HPI HOME MEDICATIONS: Please see below. PHYSICAL EXAMINATION: Constitutional: Awake and alert, in no apparent distress ENT: Sclera are clear. Mucosa is moist. Respiratory: Lungs CTA bilaterally. No respiratory distress. Cardiovascular: Regular Rate and rhythm Gastrointestinal: Abdomen is soft, non distended, non tender, BS present. Musculoskeletal: No lower extremity edema. Neurologic: No focal neurological deficit. Mental Status: A&O x3, normal affect Skin: Petechiae over shins and arms. Bandage over the second toe right foot which was not removed out of fear of removing an eschar and resulting in bleeding with a platelet count of 3, he tells me she has an ulcer there which she has been following up with Dr. garner from podiatry LABORATORY DATA: See below. IMAGING: See chart MICROBIOLOGY: Please see below. ASSESSMENT/PLAN 54-year-old female comes to hospital at the request of her PCP due to low platelets found to have a platelet count of 3 suspected to be ITP flare up admitted for further management. # Presumed ITP flare: Start Solu-Medrol 1 g daily for 3 days. Consider consulting hematology in the morning and discuss need for IVIG. Receiving platelet transfusion in the ED. Closely monitor for bleeding. Monitor platelet count. # Toe ulcer: Continue prescribed Bactrim and follow up with Dr. Garner # Hypertension: Takes diltiazem and torsemide for blood pressure control which are not first-line medications for blood pressure control I asked her about this and her PCP was considering referring her to cardiology to adjust her medications. For now I will resume her diltiazem but with her current blood pressure I don't see the need to resume torsemide. Monitor and titrate # Hypothyroidism: resume Synthroid. # DVT prophylaxis: SCDs only due to thrombocytopenia A [facility] Hospitalist Vital Signs Vital Signs Date Time Temp Pulse Resp B/P (MAP) Pulse Ox O2 Delivery O2 Flow Rate FiO2 07/28/20 23:18 98.0 70 16 130/71 95 Room Air 07/28/20 22:14 96.0 Laboratory Data Labs 24H Laboratory Tests 2 07/28/20 20:54: Immature Granulocyte % (Auto) 4.0H, Neutrophils (%) (Auto) 64.3, Lymphocytes (%) (Auto) 18.1L, Monocytes (%) (Auto) 10.8H, Eosinophils (%) (Auto) 1.4, Basophils (%) (Auto) 1.4H, Neutrophils # (Auto) 8.1, Lymphocytes # (Auto) 2.3, Monocytes # (Auto) 1.4H, Eosinophils # (Auto) 0.2, Basophils # (Auto) 0.2, Nucleated Red Blood Cells % (auto) 0.6H, Immature Platelet Fraction 13.9H, Anion Gap 7L, Glomerular Filtration Rate > 60.0, Calcium Level 8.8 CBC/BMP Laboratory Tests 07/28/20 20:54 Home Medications Scheduled Biotin (Biotin) 1 Mg Capsule, 1 MG PO QHS Buspirone HCl (Buspirone HCl) 5 Mg Tablet, 5 MG PO DAILY Citalopram Hydrobromide (Citalopram HBr) 20 Mg Tab, 20 MG PO DAILY Estradiol (Estradiol) 1 Mg Tab, 1 TAB PO DAILY Levothyroxine Sodium (Levo-T) 137 Mcg Tab, 137 MCG PO DAILY Pantoprazole Sodium (Pantoprazole Sodium) 20 Mg Tab, 20 MG PO DAILY Spironolactone (Spironolactone) 25 Mg Tablet, 25 MG PO BID Sulfamethoxazole/Trimethoprim (Bactrim Ds Tablet) 1 Each Tablet, 1 TAB PO BID STARTED ON 07/21/20 Torsemide (Torsemide) 5 Mg Tablet, 20 MG PO DAILY Torsemide (Torsemide) 5 Mg Tablet, 10 MG PO QPM TAKES AT 1800 dilTIAZem HCl (Tiazac) 120 Mg Cap.sa.24h, 120 MG PO DAILY Allergies Coded Allergies: Penicillins (Verified Allergy, Intermediate, hives/difficulty breathing, 05/07/19) A-FIB/CHADSVASC A-FIB History Current/History of A-Fib/PAF?: No Current PO Anticoag Therapy: No CARLITO CHRISTIANSON MD Jul 28, 2020 23:22
[2020-07-29] VITALS (14 sets, daily range): BP systolic 108–163; BP diastolic 56–79
[2020-07-29 00:05] LABS: RSV AMPLIFICATION NEGATIVE (NEGATIVE)
[2020-07-29] MEDS ORDERED: MOM 30ML SUSPENSION UDC PO PRN (00:25)
[2020-07-29] MEDS ORDERED: MAALOX 30 ML SUSP *UDC PO PRN (00:25)
[2020-07-29] MEDS ORDERED: ACETAMINOPHEN TAB 650MG DOSE (2X325MG) PO PRN (00:25)
[2020-07-29] MEDS: BACTRIM 160MG/800MG DS TAB PO SCH ×3 (01:35→20:20)
[2020-07-29] MEDS: LEVOTHYROXINE 137MCG TABLET (0.137MG) PO SCH (06:10)
[2020-07-29] MEDS: methylPREDNISolone 1,000 MG, VIAL MATE ADAPTER 1 EACH in NS 250 ML IV SCH (08:19)
[2020-07-29] MEDS: SPIRONOLACTONE 25 MG TAB PO SCH ×2 (08:19→17:31)
[2020-07-29] MEDS: PANTOPRAZOLE 20 MG TAB PO SCH (08:19)
[2020-07-29] MEDS: CitaloPRAM (CeleXA) 20 MG TAB PO SCH (08:19)
[2020-07-29] MEDS: DOCUSATE SODIUM 100MG CAPSULE PO SCH ×2 (08:19→20:20)
[2020-07-29 08:34] LABS: BASO # 0.1 10^3/uL (0.0-0.2); BASO % 0.6 % (0.0-1.0); HEMATOCRIT 41.6 % (36.0-47.0); LYMPH # 0.9 10^3/uL (1.5-5.0); LYMPH % 7.1 % (24.0-44.0); MEAN CORPUSCULAR HEMOGLOBIN 36.9 pg (27.0-33.0); MEAN CORPUSCULAR HGB CONC 36.1 g/dl (32.0-36.5); MEAN CORPUSCULAR VOLUME 102.2 fl (80.0-96.0); MONO # 0.2 10^3/uL (0.0-0.8); MONO % 1.9 % (2.0-8.0); NEUTROPHILS # 11.1 10^3/uL (1.5-8.5); NEUTROPHILS % 87.6 % (36.0-66.0); RED BLOOD COUNT 4.07 10^6/uL (4.00-5.40); WHITE BLOOD COUNT 12.7 10^3/uL (4.0-10.0)
[2020-07-29 08:35] LABS: PLATELET COUNT, AUTOMATED 6 10^3/uL (150-450)
[2020-07-29 08:45] LABS: INR 0.96
[2020-07-29 08:56] LABS: BLOOD UREA NITROGEN 9 MG/DL (7-18); CALCIUM LEVEL 8.6 MG/DL (8.5-10.1); CARBON DIOXIDE LEVEL 26 MEQ/L (21-32); CHLORIDE LEVEL 107 MEQ/L (98-107); CREATININE FOR GFR 0.69 MG/DL (0.55-1.30); GLOMERULAR FILTRATION RATE > 60.0 (>51); GLUCOSE, FASTING 149 MG/DL (70-100); MAGNESIUM LEVEL 1.8 MG/DL (1.8-2.4); POTASSIUM SERUM 3.7 MEQ/L (3.5-5.1); SODIUM LEVEL 138 MEQ/L (136-145)
[2020-07-29] MEDS: busPIRone 5 MG TAB PO SCH (13:45)
[2020-07-29] MEDS ORDERED: diphenhydrAMINE 50MG/ML VIAL (J1200) IV ONE (13:55)
--- NOTE | 2020-07-29 17:59 | IPNPDOC ---
Date Seen The patient was seen on 07/29/20. Progress Note SUBJECTIVE: Meliza was seen and examined by the hospitalist service this morning while lying in bed. She reports no significant issues overnight and is eating and drinking without any issues., Other than some slight oozing from a right toe ulcer that was debrided yesterday, she denies any areas of bleeding. She denies any current or overnight fever, chills, night sweats, chest pain, palpitations, shortness of breath, nausea, vomiting, diarrhea, constipation, hematuria, hematochezia, melena, epistaxis, or hemoptysis. OBJECTIVE PHYSICAL EXAMINATION: VITAL SIGNS: Please see below. GENERAL: Pleasant female lying upright in bed. She appears slightly older than stated age. No acute distress. HEENT: Normocephalic, atraumatic. Noninjected, anicteric sclera. She is wearing eyeglasses. Patient has a gravelly, characteristic smoking voice. ORAL CAVITY: No pharyngeal erythema or exudate. Mildly dry mucous membranes. Visual signs of dental caries. NECK: Trachea midline. Neck is supple. No lymphadenopathy appreciated. CARDIOVASCULAR: Regular rate, regular rhythm. Normal S1, S2. No murmurs or rubs are appreciated. RESPIRATORY: Patient had mild to moderate wheezes bilaterally with both inspiration and expiration. No significant defined crackles or rhonchi were appreciated. She had no accessory muscle use and was breathing room air, speaking full senses. ABDOMINAL: Soft, nontender, nondistended. Normoactive bowel sounds throughout. No guarding or rigidity. No hepatomegaly or palpable masses appreciated. INTEGUMENT: There is diffuse petechiae over bilateral lower extremities that extends up to approximately the mid thigh.. There is also petechiae present over abdomen and areas of the upper extremities, but not as significant as the lower extremities. There is a roughly 1 cm ovoid shaped wound at the tip of the right second toe with some surrounding erythema and some slight oozing. There are hyperpigmentation changes of the dorsum of the feet, more pronounced over the right foot. There is also a bony prominence over the right mid foot. Bilateral onychomycosis. EXTREMITIES: Bilateral lower extremities are free of pitting edema. 2+ radial pulses bilaterally. 23 second capillary refill. NEUROLOGICAL: No focal deficits appreciated. Non-dysarthric speech. PSYCHOLOGICAL: Pleasant mood. Appropriate appearing affect. LABORATORY DATA, IMAGING STUDIES, MICROBIOLOGY: Please see below. ASSESSMENT AND PLAN: Meliza is a pleasant 54yo female w/ notable h/o ITP s/p spelenectomy, htn, hypothyroidism, and smoking who presented to the ED late on the evening of 07/28/20 after outpt labs drawn on the same day revealed significant thrombocytopenia in the setting of two days of lower extremity petechiae. She had no symptoms at presentation and denied any recent significant bleeding besides scant blood from a recently debrided right second toe wound. She was given a loading dose of Solu-Medrol in the ED (125 mg times one) and was started on 1 g daily of Solu-Medrol, moving forward. She was also given 1 unit of platelet transfusion in the ED. Initial platelet count in the ED was 3, which improved to 6 on the morning of 07/29. Per conversation with hematology service, it was recommended patient be given intravenous immunoglobulin (1 g per KG) on 07/29 and to continue following her platelet counts. #ITP flare -Patient was diagnosed with ITP in 2012 and is s/p splenectomy (2012). She's had 2 days of petechiae most prominent over her lower extremities with no signifi cant sources of bleeding. Initial platelet count was 3 upon ED presentation and improved to 6. Status post Solu-Medrol and 1 unit of platelet transfusion. Another unit of platelets was transfused today. We had an extensive discussion with the on-call fumigator and sterilizer (Dr. Garrison), who recommended beginning intravenous immunoglobulin (1 g/kg) today. Should patient's platelet count remain under 10 tomorrow morning (07/30), patient is to receive a second day of IVIG at the same dosing. If the platelet count is over 10, IVIG is not indicated. Dr. Garrison also recommended that we continue with IV steroids until the platelet count is greater than 20. At that point, a switch can be made to oral prednisone to ev entually taper off. Ultimately, once Asians, platelet count comes up, chronic pharmacotherapy management can be addressed in the form of oral platelet stimulating factors (Promacta or Tavalisse) or qwk sq option (Nplate). -She does not currently follow with hematology. Upon discharge, patient should be referred to the hematology service at [facility] for cancer care. -Obviously we will continue to monitor blood counts and signs of bleeding. As long as patient is under 10 for platelet count, she is at risk for intracranial bleeding. #Severe thrombocytopenia -Please see above hashtag dx and associated plan. #HTN -Patient takes diltiazem 120 mg daily and torsemide for outpatient blood pressure control. Admitting hospitalist had extensive discussion with patient about these medications and how they are not first line for hypertension. Apparently, patient reports her PCP is considering sending her to cardiology to help manage these medications. We will continue with her diltiazem which was resumed upon admission. Her torsemide was held at time of admission. Instead, spironolactone was added. Continue to monitor pressures and adjust pharmacotherapy as needed. Of note, pressures have remained stable throughout the shift today. #Right 2nd toe ulce -Patient follows with Dr. Garner of podiatry and just had a debridement of the wound on 07/28. She is currently taking 1 tablet twice a day of Bactrim. #Hypothyroidism -Patient's home 37 g levothyroxine continued. TSH has not been checked since January 2019 and a 07/30 morning. TSH was subsequently added. #Hx of unspecified behavioral health issue(s), presumed depression -Home BuSpar and citalopram continued. #Suspected GERD -Patient is on PPI as outpatient, which was continued upon admission #DVT prophylaxis: Continue with teds and sequentials in the setting of severe thrombocytopenia DISPOSITION: Pending continued increase in platelets with no acute bleeding in the setting of IVIG and IV steroid treatment. VS, I&O, 24H, Fishbone Vital Signs/I&O Vital Signs Date Time Temp Pulse Resp B/P (MAP) Pulse Ox O2 Delivery O2 Flow Rate FiO2 07/29/20 17:03 98.4 82 12 108/56 91 Room Air 07/28/20 22:14 96.0 I&O- Last 24 Hours up to 6 AM 07/29/20 06:00 Intake Total 936 ml Output Total 0 ml Balance 936 ml Laboratory Data 24H LABS Laboratory Tests 2 07/28/20 20:54: Immature Granulocyte % (Auto) 4.0H, Neutrophils (%) (Auto) 64.3, Lymphocytes (%) (Auto) 18.1L, Monocytes (%) (Auto) 10.8H, Eosinophils (%) (Auto) 1.4, Basophils (%) (Auto) 1.4H, Neutrophils # (Auto) 8.1, Lymphocytes # (Auto) 2.3, Monocytes # (Auto) 1.4H, Eosinophils # (Auto) 0.2, Basophils # (Auto) 0.2, Nucleated Red Blood Cells % (auto) 0.6H, Immature Platelet Fraction 13.9H, Anion Gap 7L, Glomerular Filtration Rate > 60.0, Calcium Level 8.8 07/28/20 23:06: Coronavirus (COVID-19)(PCR) NEGATIVE, Influenza Type A (RT-PCR) NEGATIVE, Influenza Type B (RT-PCR) NEGATIVE, Respiratory Syncytial Virus (PCR) NEGATIVE 07/29/20 08:15: Immature Granulocyte % (Auto) 2.8, Neutrophils (%) (Auto) 87.6H, Lymphocytes (%) (Auto) 7.1L, Monocytes (%) (Auto) 1.9L, Eosinophils (%) (Auto) 0.0, Basophils (%) (Auto) 0.6, Neutrophils # (Auto) 11.1H, Lymphocytes # (Auto) 0.9L, Monocytes # (Auto) 0.2, Eosinophils # (Auto) 0.0, Basophils # (Auto) 0.1, Nucleated Red Blood Cells % (auto) 0.6H, Anion Gap 5L, Glomerular Filtration Rate > 60.0, Calcium Level 8.6, Prothrombin Time 13.0, Prothromb Time International Ratio 0.96, Magnesium Level 1.8 CBC/BMP Laboratory Tests 07/28/20 20:54 07/29/20 08:15 JAMAL CRYSTAL D.O. Jul 29, 2020 17:59
[2020-07-29] MEDS ORDERED: IMMUNE GLOBULIN 10% 80 GM in IV 1 EA IV ONE (19:00)
[2020-07-30] VITALS (9 sets, daily range): BP systolic 114–124; BP diastolic 59–68
[2020-07-30] MEDS: LEVOTHYROXINE 137MCG TABLET (0.137MG) PO SCH (06:06)
[2020-07-30 06:24] LABS: BASO # 0.1 10^3/uL (0.0-0.2); BASO % 0.3 % (0.0-1.0); HEMOGLOBIN 13.3 g/dl (12.0-15.5); LYMPH # 1.5 10^3/uL (1.5-5.0); LYMPH % 5.1 % (24.0-44.0); MEAN CORPUSCULAR HEMOGLOBIN 36.5 pg (27.0-33.0); MEAN CORPUSCULAR VOLUME 104.4 fl (80.0-96.0); MONO # 1.4 10^3/uL (0.0-0.8); MONO % 4.5 % (2.0-8.0); NEUTROPHILS # 26.1 10^3/uL (1.5-8.5); NEUTROPHILS % 86.9 % (36.0-66.0); RED BLOOD COUNT 3.64 10^6/uL (4.00-5.40)
[2020-07-30 06:26] LABS: PLATELET COUNT, AUTOMATED 88 10^3/uL (150-450)
[2020-07-30 07:02] LABS: BLOOD UREA NITROGEN 13 MG/DL (7-18); CALCIUM LEVEL 8.5 MG/DL (8.5-10.1); CARBON DIOXIDE LEVEL 22 MEQ/L (21-32); CHLORIDE LEVEL 107 MEQ/L (98-107); CREATININE FOR GFR 0.68 MG/DL (0.55-1.30); GLOMERULAR FILTRATION RATE > 60.0 (>51); GLUCOSE, FASTING 112 MG/DL (70-100); POTASSIUM SERUM 3.2 MEQ/L (3.5-5.1); SODIUM LEVEL 138 MEQ/L (136-145); THYROID STIMULATING HORMONE 0.059 uIU/ML (0.358-3.740)
[2020-07-30] MEDS: SPIRONOLACTONE 25 MG TAB PO SCH ×2 (09:54→16:47)
[2020-07-30] MEDS: busPIRone 5 MG TAB PO SCH (09:54)
[2020-07-30] MEDS: CitaloPRAM (CeleXA) 20 MG TAB PO SCH (09:55)
[2020-07-30] MEDS: BACTRIM 160MG/800MG DS TAB PO SCH (09:55)
[2020-07-30] MEDS: methylPREDNISolone 1,000 MG, VIAL MATE ADAPTER 1 EACH in NS 250 ML IV SCH (09:55)
[2020-07-30] MEDS: PANTOPRAZOLE 20 MG TAB PO SCH (09:55)
[2020-07-30] MEDS: DOCUSATE SODIUM 100MG CAPSULE PO SCH (09:55)
[2020-07-30] MEDS ORDERED: PRED10TA2 PO (17:05)
--- NOTE | 2020-07-30 18:11 | DS.PDOC ---
Discharge Summary General Date of Admission Jul 28, 2020 at 23:21 Date of Discharge 07/30/2020 Attending Physician: Claude Morales MD Specialist/Consultants Involve: MIKE GARRISON MD Discharge Summary PROCEDURES PERFORMED DURING STAY: IVIG administration. ADMITTING DIAGNOSES: 1. Presumed ITP flare, severe thrombocytopenia 2. Toe ulcer 3. HTN 4. Hypothyroidism DISCHARGE DIAGNOSES: 1. Thrombocytopenia 2/2 ITP 2. HTN 3. Hypothyroidism 4. Toe ulcer COMPLICATIONS/CHIEF COMPLAINT: Chronic Itp,Thromboctyopenia. HISTORY OF PRESENT ILLNESS: 54-year-old female history of ITP, hypertension, hypothyroidism who was undergoing routine blood work with her primary care physician and noted to have low platelet count. She was asked to come to the hospital by her PCP. Patient tells me she has a history of ITP and this has happened in the past she had a suspicion she was having another bout of ITP because she noticed petechia developing again around her legs and arms which typically happens when her ITP flares up. She denies active bleeding. She does have a wound on her right foot on the second toe with an ulcer with a bandage over top of it which we did not remove as did not provoke any bleeding as her platelets were 3. She is following up with that wound with Dr. Garner and is currently taking Bactrim. Patient denies any chest pain or shortness of breath denies fevers or chills. Patient will be admitted to the medical service due to thrombocytopenia presumed to be an ITP flare. HOSPITAL COURSE: Patient was started on IV Solu-Medrol 1 g daily for 3 days. Hematology was consulted, and discussion was done over the phone with Dr. Garrison. Patient was closely monitored for intracranial bleeding with neurologic examinations done during hospital course. Patient exhibited no neurological deficits during hospital course. Patient's blood pressure medications, spironolactone and diltiazem were continued, however, torsemide was held. Patient's Synthroid was also continued throughout stay. SCDs were used for DVT prophylaxis since patient had severe thrombocytopenia with a lab level of platelets of 3. Following the discussion with the teacher vocational training, , IVIG 80 g was administered. The next day on 07/30/2020, the patient had 88,000 platelets. With the significant improvement, the Solu-Medrol was discontinued and the patient is being discharged on oral prednisone, per Dr. Garrison's suggestion: 40 mg oral prednisone taper needs to occur over the next month. Patient will be receiving 40 mg daily prednisone for the first week, then 30 mg daily prednisone for the second week, then 20 mg daily, prednisone the third week, then 10 mg on the final week after discharge. The patient was asked to go to have CBCs drawn biweekly, on Mondays and , for Dr. Garrison to review and readjust tapering of steroids if needed, per Dr. Garrison's recommendation. The patie nt was also asked to follow-up with PCP for post hospitalization follow-up and consider readjustment of medications for hypertension, if needed, and to follow- through with the biological science aide. DISCHARGE MEDICATIONS: Please see below. ALLERGIES: Please see below. PHYSICAL EXAMINATION ON DISCHARGE: VITAL SIGNS: Please see below. GENERAL: pt sitting upright in bed in NAD. HEENT: Normocephalic, atraumatic. Noninjected, anicteric sclera. Characteristic smoker's cough appreciated. ORAL CAVITY: No pharyngeal erythema or exudate. Mildly dry mucous membranes. Visual signs of dental caries. NECK: Trachea midline. Neck is supple. No lymphadenopathy appreciated. CARDIOVASCULAR: Regular rate, regular rhythm. Normal S1, S2. No murmurs or rubs are appreciated. RESPIRATORY: Patient had mild to moderate wheezes bilaterally with both inspiration and expiration. No significant defined crackles or rhonchi were appreciated. No increased work of breathing, able to speak in full sentences without stopping to take a breath. ABDOMINAL: Soft, nontender, nondistended. Normoactive bowel sounds throughout. No guarding or rigidity. No hepatomegaly or palpable masses appreciated. INTEGUMENT: There is diffuse petechiae over bilateral lower extremities that extends up to approximately the mid thigh. There is also petechiae present over abdomen and areas of the upper extremities, but not as significant as the lower extremities. There is a roughly 1 cm ovoid shaped wound at the tip of the right second toe with some surrounding erythema and some slight oozing. There are hyperpigmentation changes of the dorsum of the feet, more pronounced over the right foot. There is also a bony prominence over the right mid foot. Bilateral onychomycosis. EXTREMITIES: Bilateral lower extremities are free of pitting edema. 2+ radial pulses bilaterally. 23 second capillary refill. NEUROLOGICAL: No focal deficits appreciated. Negative Romberg's sign. PSYCHOLOGICAL: Affect full and open, cooperative on exam. LABORATORY DATA: Please see below. IMAGING: None. PROGNOSIS: Fair ACTIVITY: As tolerated. DIET: 2 g sodium diet DISCHARGE: Home. DISCHARGE INSTRUCTIONS: 1. Please follow up with PCP within the next week for a post-hospital visit and to follow up on possible cardiac referral for HTN medications. 2. Please follow-up with Dr. Garrison, hematology, to follow-up on management for ITP. 3. Please have CBC labs drawn bi-weekly. 4. Please take steroids as prescribed and described to you. Tapering steroid dose of 40mg daily for 7 days after discharge, then 30mg daily for 7 days, then 20 mg daily for 7 days, then 10 mg, for a total month. This dose may be re- adjusted according to CBC results interpreted by Dr. Garrison. Please follow-up with Dr. Garrison for CBC interpretation and possible intervention according to CBC lab results. 5. Please read the ITP discharge packet as given to you upon discharge for further questions. 6. In case of worsening symptoms, or any abnormal bleeding or other medical concerns, please seek immediate medical advice. DISCHARGE CONDITION: Stable. TIME SPENT ON DISCHARGE: Greater than 36 minutes. Vital Signs/I&Os Vital Signs Date Time Temp Pulse Resp B/P (MAP) Pulse Ox O2 Delivery O2 Flow Rate FiO2 07/30/20 14:00 98.3 68 16 117/66 (83) 92 07/30/20 06:00 Room Air 07/28/20 22:14 96.0 I&O- Last 24 Hours up to 6 AM 07/30/20 06:00 Intake Total 3299 ml Balance 3299 ml Laboratory Data Labs 24H Laboratory Tests 2 07/30/20 05:21: Immature Granulocyte % (Auto) 3.2H, Neutrophils (%) (Auto) 86.9H, Lymphocytes (%) (Auto) 5.1L, Monocytes (%) (Auto) 4.5, Eosinophils (%) (Auto) 0.0, Basophils (%) (Auto) 0.3, Neutrophils # (Auto) 26.1H, Lymphocytes # (Auto) 1.5, Monocytes # (Auto) 1.4H, Eosinophils # (Auto) 0.0, Basophils # (Auto) 0.1, Nucleated Red Blood Cells % (auto) 0.3H, Immature Platelet Fraction 24.0H, Anion Gap 9, Glomer ular Filtration Rate > 60.0, Calcium Level 8.5, Magnesium Level 2.0, Thyroid Stimulating Hormone (TSH) 0.059L CBC/BMP Laboratory Tests 07/30/20 05:21 Discharge Medications Scheduled Biotin (Biotin) 1 Mg Capsule, 1 MG PO QHS, (Reported) Buspirone HCl (Buspirone HCl) 5 Mg Tablet, 5 MG PO DAILY, (Reported) Citalopram Hydrobromide (Citalopram HBr) 20 Mg Tab, 20 MG PO DAILY, (Reported) Estradiol (Estradiol) 1 Mg Tab, 1 TAB PO DAILY, (Reported) Levothyroxine Sodium (Levo-T) 137 Mcg Tab, 137 MCG PO DAILY, (Reported) Pantoprazole Sodium (Pantoprazole Sodium) 20 Mg Tab, 20 MG PO DAILY, (Reported) Prednisone (Prednisone) 10 Mg Tablet, 10 MG PO TAPER Take 4 tabs daily x 7 days, then 3 tabs daily x 7 days, then 2 tabs daily x 7 days, then 1 tab daily x 7 days and stop. Spironolactone (Spironolactone) 25 Mg Tablet, 25 MG PO BID, (Reported) Sulfamethoxazole/Trimethoprim (Bactrim Ds Tablet) 1 Each Tablet, 1 TAB PO BID, (Reported) STARTED ON 07/21/20 Torsemide (Torsemide) 5 Mg Tablet, 20 MG PO DAILY, (Reported) Torsemide (Torsemide) 5 Mg Tablet, 10 MG PO QPM, (Reported) TAKES AT 1800 dilTIAZem HCl (Tiazac) 120 Mg Cap.sa.24h, 120 MG PO DAILY, (Reported) Allergies Coded Allergies: Penicillins (Verified Allergy, Intermediate, hives/difficulty breathing, 05/07/19) GME ATTESTATION GME ATTESTATION My faculty preceptor for this patient encounter was physically present during the encounter and was fully available. All aspects of the patient interview, examination, medical decision making process, and medical care plan development were reviewed and approved by the faculty preceptor. The faculty preceptor is aware and concurs with the plan as stated in the body of this note and will attest to such by his/her cosignature. Nabeel Powers DO Jul 30, 2020 18:11
== END 2020-07-30 17:51 | disposition home or self-care (01) | DRG 813 ==
LOC: M ED 19:07 → M ED INP 23:21 → ENRESERV 07-29 00:15 → M MSPAV 07-29 00:51
PROVIDERS: ADMIT Family Medicine; ATTEND Family Medicine
PROC: 30233R1 Transfusion of Nonautologous Platelets into Peripheral Vein, Percutaneous Approach (ICD-10-PCS; principal; 2020-07-28)
DX: D69.3 Immune thrombocytopenic purpura (principal); I10 Essential (primary) hypertension; E03.9 Hypothyroidism, unspecified; F17.200 Nicotine dependence, unspecified, uncomplicated; L97.519 Non-pressure chronic ulcer of other part of right foot with unspecified severity; Z79.899 Other long term (current) drug therapy; Z88.0 Allergy status to penicillin; F32.9 Major depressive disorder, single episode, unspecified; K21.9 Gastro-esophageal reflux disease without esophagitis; Z20.822 Contact with and (suspected) exposure to COVID-19

== ENCOUNTER → 2020-08-04 | Outpatient (CLI) | payer OTHER ==
[~2020-08-04] MED LIST changes: +BIOT1CAP2 PO; +TIAZ1CAP2 PO
[2020-08-04 16:00] LABS: HEMATOCRIT 46.1 % (36.0-47.0); MEAN CORPUSCULAR HEMOGLOBIN 35.8 pg (27.0-33.0); MEAN CORPUSCULAR HGB CONC 34.7 g/dl (32.0-36.5); MEAN CORPUSCULAR VOLUME 103.1 fl (80.0-96.0); PLATELET COUNT, AUTOMATED 295 10^3/uL (150-450); RED BLOOD COUNT 4.47 10^6/uL (4.00-5.40); WHITE BLOOD COUNT 27.2 10^3/uL (4.0-10.0)
== END ==
LOC: M LAB 15:01
PROVIDERS: ATTEND Family Medicine
DX: D69.3 Immune thrombocytopenic purpura (principal)

== ENCOUNTER 2020-08-09 12:28 | Inpatient (IN) | payer OTHER ==
[~2020-08-09] VITALS: Ht 170.2 cm; Wt 83.9 kg
[2020-08-09] MEDS ORDERED: IBUP200T45 PO (12:57)
[2020-08-09] MEDS ORDERED: NS 1,000 ML IV ONE (13:25)
[2020-08-09 13:29] LABS: VENOUS BASE EXCESS -2.9 (-2.0-2.0); VENOUS HCO3 20.7 MEQ/L (23.0-27.0); VENOUS PARTIAL PRESSURE O2 49.3 mmHg (30.0-50.0); VENOUS PH 7.415 UNITS (7.330-7.430); VENOUS STANDARD HCO3 21.8 MEQ/L; VENOUS TOTAL CO2 21.7 MEQ/L (24.0-28.0)
[2020-08-09 13:33] LABS: HEMATOCRIT 42.2 % (36.0-47.0); HEMOGLOBIN 14.9 g/dl (12.0-15.5); MEAN CORPUSCULAR HEMOGLOBIN 36.6 pg (27.0-33.0); MEAN CORPUSCULAR HGB CONC 35.3 g/dl (32.0-36.5); MEAN CORPUSCULAR VOLUME 103.7 fl (80.0-96.0); RED BLOOD COUNT 4.07 10^6/uL (4.00-5.40)
[2020-08-09 13:43] LABS: INR 0.98; PROTHROMBIN TIME 13.2 SECONDS (12.5-14.3)
[2020-08-09 13:44] LABS: PARTIAL THROMBOPLASTIN TIME 32.5 SECONDS (24.2-38.5)
[2020-08-09 14:01] LABS: PLATELET COUNT, AUTOMATED 2 10^3/uL (150-450)
[2020-08-09 14:02] LABS: WHITE BLOOD COUNT 66.5 10^3/uL (4.0-10.0)
[2020-08-09 14:05] LABS: LYMPHOCYTES 2 % (16-44); MONOCYTES 3 % (0-5); NEUTROPHILS 93 % (28-66); PLATELET ESTIMATE MARKED DECREASE (NORMAL)
[2020-08-09 14:06] LABS: ALBUMIN 2.5 GM/DL (3.2-5.2); ALT/SGPT 42 U/L (12-78); AMYLASE 32 U/L (25-115); BILIRUBIN,DIRECT 0.6 MG/DL (0.0-0.2); BLOOD UREA NITROGEN 24 MG/DL (7-18); CALCIUM LEVEL 8.5 MG/DL (8.5-10.1); CARBON DIOXIDE LEVEL 22 MEQ/L (21-32); CHLORIDE LEVEL 103 MEQ/L (98-107); CK-MB VALUE MASS < 1.0 NG/ML (<3.6); CPK CREATINE PHOSPHOKINASE 28 U/L (26-192); CREATININE FOR GFR 1.48 MG/DL (0.55-1.30); GLUCOSE, FASTING 108 MG/DL (70-100); MB/CK RELATIVE INDEX 3.57 (< OR =4); POTASSIUM SERUM 3.4 MEQ/L (3.5-5.1); SODIUM LEVEL 137 MEQ/L (136-145); TOTAL PROTEIN 6.3 GM/DL (6.4-8.2); TROPONIN I < 0.02 NG/ML (< 0.10)
[2020-08-09] MEDS ORDERED: NS 2,250 ML in IV 1 EA IV ONE (14:35)
[2020-08-09] MEDS ORDERED: LevoFLOXacin IV 750 MG in IV 1 EA IV ONE (14:40)
[2020-08-09] MEDS ORDERED: TORS10TA3 PO (15:03)
[2020-08-09] MEDS ORDERED: PRED10TA2 PO (15:05)
[2020-08-09] MEDS ORDERED: MOM 30ML SUSPENSION UDC PO PRN (15:25)
[2020-08-09] MEDS ORDERED: ACETAMINOPHEN TAB 650MG DOSE (2X325MG) PO PRN (15:25)
[2020-08-09] MEDS ORDERED: MAALOX 30 ML SUSP *UDC PO PRN (15:25)
[2020-08-09 15:56] LABS: RSV AMPLIFICATION NEGATIVE (NEGATIVE)
--- NOTE | 2020-08-09 16:02 | HPEPDOC ---
[facility] Medical History & Physical Date of Admission Aug 09, 2020 Date of Service: Aug 09, 2020 History and Physical CHIEF COMPLAINT: Petechiae HISTORY OF PRESENT ILLNESS: 54-year-old female history of ITP, hypertension, hypothyroidism who noticed development of petechiae and she knew she must be getting ITP again which prompted her to come to the hospital. She was recently admitted and discharged earlier this month with ITP flare. She was treated with IVIG and IV steroids. She was discharged on a prednisone taper and was supposed to follow-up with bad work gatherer Dr. Garrison but didn't get a chance to call to book appointment yet. She recently traveled with her family and just got back she tells me she's been having a poor appetite daily since Saturday she developed some nausea and vomiting as well as diarrhea Saturday. No sick contacts. She denies active bleeding but did notice blood-tinged urine today. PAST MEDICAL/SURGICAL HISTORY: ITP Hypertension Hypothyroidism Splenectomy 2013 Hysterectomy SOCIAL HISTORY: Drinks alcohol only socially Endorses smoking tobacco about half a pack a day Denies illicit drug use FAMILY HISTORY: Reviewed and none contributory to this admission ALLERGIES: Please see below. REVIEW OF SYSTEMS: 10 point review of systems complete all negative otherwise stated in HPI HOME MEDICATIONS: Please see below. PHYSICAL EXAMINATION: Constitutional: Awake and alert, in no apparent distress ENT: Sclera are clear. Mucosa is moist. Respiratory: Lungs CTA bilaterally. No respiratory distress. Cardiovascular: Regular Rate and rhythm Gastrointestinal: Abdomen is soft, non distended, non tender, BS present. Musculoskeletal: No lower extremity edema. Neurologic: No focal neurological deficit. Mental Status: A&O x3, normal affect Skin: Petechiae over shins and arms. LABORATORY DATA: See below. IMAGING: See chart MICROBIOLOGY: Please see below. ASSESSMENT/PLAN 54-year-old female comes to hospital at the request of her PCP due to low platelets found to have a platelet count of 3 suspected to be ITP flare up admitted for further management. # ITP flare: Thrombocytopenia platelet count of 2 on admission. Started Solu- Medrol 1 g daily for 3 days. Spoke with hematology swine extension field specialist Dr Buitrago who recommended same management as last time with IVIG, and IV steroids for 3 days however he would like a slower prednisone taper this time, he recommended staying on 60mg daily until she is seen at the hematology clinic. She has been assigned to establish care with Dr Meli. He recommended no need for platelet administration at this time. Closely monitor for bleeding. Monitor platelet count. # Leukocytosis: 66 on admit. This is from her prolonged steroid use this month. Rule out infectious cases. Fu CXR, UA, procalcitonin, BCx, respiratory panel. # RUSS: Cr1.48. Likely prerenal secondary to dehydration. Fu FeNa. IVFs NS. Trend BMP. Avoid nephrotoxins. # Dehydration: poor po intake likely from nausea, vomiting and diarrhea. Possible viral gastroenteritis with recent travel. COVID pending. # Hypertension: borderline BP, hold home meds. IVFs. Monitor and titrate # Hypokalemia: replace. monitor. # Depression/anxiety: continue home citalopram and buspirone # Hypothyroidism: resume Synthroid. # DVT prophylaxis: SCDs only due to thrombocytopenia A Yousef Hospitalist Vital Signs Vital Signs Date Time Temp Pulse Resp B/P (MAP) Pulse Ox O2 Delivery O2 Flow Rate FiO2 08/09/20 12:52 08/09/20 12:48 99.3 83 20 96 Room Air Laboratory Data Labs 24H Laboratory Tests 2 08/09/20 12:57: Prothrombin Time 13.2, Prothromb Time International Ratio 0.98, Activated Partial Thromboplast Time 32.5, Anion Gap 12, Glomerular Filtration Rate 39.0L, Lactic Acid Level 2.2*H, Calcium Level 8.5, Total Bilirubin 1.0, Direct Bilirubin 0.6H, Aspartate Amino Transf (AST/SGOT) 43H, Alanine Aminotransferase (ALT/SGPT) 42, Alkaline Phosphatase 108, Total Creatine Kinase 28, Creatine Kinase MB < 1.0, Creatine Kinase MB Relative Index 3.57, Troponin I < 0.02, C-R eactive Protein, Quantitative 24.60H, Total Protein 6.3L, Albumin 2.5L, Albumin/Globulin Ratio 0.7L, Amylase Level 32 08/09/20 12:58: Immature Granulocyte % (Auto) , Neutrophils (%) (Auto) , Nucleated Red Blood Cells % (auto) 0.2H, Neutrophils 93H, Band Neutrophils 2, Lymphocytes (Manual) 2L, Monocytes (Manual) 3, Macrocytosis 1+, Platelet Estimate MARKED DECREASE, Immature Platelet Fraction 7.9, Blood Gas Bicarbonate Standard 21.8, Venous Blood pH 7.415, Venous Blood Partial Pressure CO2 33.0L, Venous Blood Partial Pressure O2 49.3, Venous Blood Total Carbon Dioxide 21.7L, Venous Blood HCO3 20.7L, Venous Blood Oxygen Saturation 87.0H, Venous Blood Base Excess -2.9L 08/09/20 14:59: CBC/BMP Laboratory Tests 08/09/20 12:57 08/09/20 12:58 Microbiology Microbiology 08/09/20 Blood Culture, Received Pending 08/09/20 Blood Culture, Received Pending Home Medications Scheduled Biotin (Biotin) 1 Mg Capsule, 1 MG PO QHS Buspirone HCl (Buspirone HCl) 5 Mg Tablet, 5 MG PO DAILY Citalopram Hydrobromide (Citalopram HBr) 20 Mg Tab, 20 MG PO DAILY Estradiol (Estradiol) 1 Mg Tab, 1 TAB PO DAILY Levothyroxine Sodium (Levo-T) 137 Mcg Tab, 137 MCG PO DAILY Pantoprazole Sodium (Pantoprazole Sodium) 20 Mg Tab, 20 MG PO DAILY Prednisone (Prednisone) 10 Mg Tablet, 10 MG PO TAPER 40MG DAILY X 7 DAYS 30MG DAILY X 7 DAYS 20MG DAILY X 7 DAYS 10MG DAILY X 7 DAYS THEN STOP PT IS ON 2ND WEEK OF 30MG Spironolactone (Spironolactone) 25 Mg Tablet, 25 MG PO BID Torsemide (Torsemide) 5 Mg Tablet, 20 MG PO DAILY Torsemide (Torsemide) 5 Mg Tablet, 10 MG PO QPM TAKES AT 1700 dilTIAZem HCl (Tiazac) 120 Mg Cap.sa.24h, 120 MG PO DAILY Scheduled PRN Ibuprofen (Ibu-200) 200 Mg Tablet, 800 MG PO Q8H PRN for PAIN / FEVER Allergies Coded Allergies: Penicillins (Verified Allergy, Intermediate, hives/difficulty breathing, 05/07/19) A-FIB/CHADSVASC A-FIB History Current/History of A-Fib/PAF?: No CARLITO CHRISTIANSON MD Aug 09, 2020 16:02
[2020-08-09] MEDS ORDERED: POTASSIUM CHLORIDE 10 MEQ SR TABLET PO ONE (16:15)
--- NOTE | 2020-08-09 16:26 | REP ---
INDICATION: Fever. COMPARISON: 05/07/2019 a two view exam FINDINGS: The technique utilized in obtaining the radiograph has magnified the cardiac silhouette and accentuated the interstitial markings. The superior mediastinal structures are midline. The cardiac silhouette is unremarkable in size, shape, and position. The diaphragmatic surfaces of the lungs are regular, and the costophrenic angles are clear. The pulmonary abreu are clear. The imaged osseous structures are intact. IMPRESSION: There is no acute cardiopulmonary disease. <Electronically signed by Donta Dixon > 08/09/20 [id number]
[2020-08-09 16:29] LABS: BILIRUBIN, URINE MANUAL NEGATIVE (NEGATIVE); GLUCOSE, URINE (UA) MANUAL NEGATIVE (NEGATIVE); KETONE, URINE MANUAL NEGATIVE (NEGATIVE); UROBILINOGEN, URINE MANUAL NORMAL (NORMAL)
[2020-08-09] MEDS: NS 1,000 ML IV SCH (16:48)
[2020-08-09 16:51] LABS: BACTERIA, URINE LARGE AMOUNT; HYALINE CAST, URINE NONE SEEN /lpf (0-1); RBC, URINE TNTC /hpf (0-3); SQUAMOUS EPITHELIAL CELL URINE NONE SEEN /hpf (SMALL AMT)
[2020-08-09 17:20] VITALS: BP 118/68
[2020-08-09] MEDS: methylPREDNISolone 1,000 MG, VIAL MATE ADAPTER 1 EACH in NS 250 ML IV SCH (17:46)
[2020-08-09] MEDS ORDERED: IMMUNE GLOBULIN 10% 5 GM in IV 1 EA IV ONE (18:00)
[2020-08-09] MEDS ORDERED: IMMUNE GLOBULIN 10% 40 GM in IV 1 EA IV ONE (18:00)
[2020-08-09] MEDS ORDERED: IMMUNE GLOBULIN 10% 20 GM in IV 1 EA IV ONE (18:00)
[2020-08-09] MEDS ORDERED: IMMUNE GLOBULIN 10% 10 GM in IV 1 EA IV ONE (18:00)
[2020-08-09 20:00] VITALS: BP 124/60
[2020-08-09] MEDS: DOCUSATE SODIUM 100MG CAPSULE PO SCH (20:59)
--- NOTE | 2020-08-09 21:08 | ECGEPIP ---
[facility] - ED Test Date: 2020-08-09 Pat Name: ALTON ALANIZ Department: Room: - Gender: Female Special Service Representative: : 1965 Requested By: Isabell Escalante Order Number: [id number] Reading MD: Isabell Escalante Measurements Intervals [place] Rate: 88 P: 63 NV: 142 QRS: 16 QRSD: 90 T: 57 QT: 384 QTc: 464 Interpretive Statements Normal sinus rhythm increased rate 05/07/19 Electronically Signed on 08-09-2020 21:08:01 EDT by Isabell Escalante
[2020-08-09 22:13] LABS: CREATININE,RANDOM URINE 46.5 MG/DL
[2020-08-10] VITALS (20 sets, daily range): BP systolic 108–165; BP diastolic 71–93
[2020-08-10] MEDS: NS 1,000 ML IV SCH ×2 (02:39→11:10)
[2020-08-10] MEDS ORDERED: LORazepam 2 MG TAB PO PRN (03:40)
[2020-08-10] MEDS: THIAMINE 100 MG TAB PO SCH ×2 (03:54→20:21)
[2020-08-10] MEDS: LEVOTHYROXINE 137MCG TABLET (0.137MG) PO SCH (06:01)
[2020-08-10 06:02] LABS: HEMATOCRIT 35.9 % (36.0-47.0); HEMOGLOBIN 12.4 g/dl (12.0-15.5); MEAN CORPUSCULAR HEMOGLOBIN 36.4 pg (27.0-33.0); MEAN CORPUSCULAR HGB CONC 34.5 g/dl (32.0-36.5); MEAN CORPUSCULAR VOLUME 105.3 fl (80.0-96.0); RED BLOOD COUNT 3.41 10^6/uL (4.00-5.40)
[2020-08-10 06:16] LABS: PLATELET COUNT, AUTOMATED 2 10^3/uL (150-450); WHITE BLOOD COUNT 45.5 10^3/uL (4.0-10.0)
[2020-08-10 06:24] LABS: BLOOD UREA NITROGEN 20 MG/DL (7-18); CALCIUM LEVEL 7.5 MG/DL (8.5-10.1); CARBON DIOXIDE LEVEL 21 MEQ/L (21-32); CHLORIDE LEVEL 111 MEQ/L (98-107); CREATININE FOR GFR 0.88 MG/DL (0.55-1.30); GLOMERULAR FILTRATION RATE > 60.0 (>51); GLUCOSE, FASTING 125 MG/DL (70-100); POTASSIUM SERUM 4.1 MEQ/L (3.5-5.1); SODIUM LEVEL 137 MEQ/L (136-145)
[2020-08-10 07:08] LABS: LYMPHOCYTES 1 % (16-44); METAMYELOCYTES 1 % (0-0); MONOCYTES 2 % (0-5); NEUTROPHILS 96 % (28-66); PLATELET ESTIMATE MARKED DECREASE (NORMAL); TOXIC VACUOLATION 1+
[2020-08-10 07:09] LABS: ANISOCYTOSIS 1+
[2020-08-10] MEDS ORDERED: IMMUNE GLOBULIN 10% 0 GM in IV 1 EA IV SCH (07:25)
[2020-08-10] MEDS ORDERED: IMMUNE GLOBULIN 10% 80 GM in IV 1 EA IV ONE (09:00)
[2020-08-10] MEDS: CitaloPRAM (CeleXA) 20 MG TAB PO SCH (09:06)
[2020-08-10] MEDS: busPIRone 5 MG TAB PO SCH (09:06)
[2020-08-10] MEDS: MULTIVITAMINS/MINERALS THERAP 1 TAB PO SCH (09:06)
[2020-08-10] MEDS: FOLIC ACID 1 MG TAB PO SCH (09:06)
[2020-08-10] MEDS: PANTOPRAZOLE 20 MG TAB PO SCH (09:06)
[2020-08-10] MEDS: DOCUSATE SODIUM 100MG CAPSULE PO SCH ×2 (09:06→20:22)
[2020-08-10 10:26] LABS: HEP C VIRUS AB INDEX SOURCE PT 0.1 INDEX (0.0-0.8); HEPATITIS B SURFACE ANTIGEN NEGATIVE (NEGATIVE)
--- NOTE | 2020-08-10 11:49 | IPNPDOC ---
Text Note Date of Service The patient was seen on 08/10/20. NOTE Subjective: Patient seen and examined this morning at bedside. She tells me she's feeling a little better today no nausea or diarrhea. Feeling tired and sleep well at night. States the blood tinged urine is the same and has not worsened. I discussed with her having a UTI she now endorses to me remembering that she's been having urinary frequency and urgency. No acute overnight events reported to me. Denies any other bleeding denies shortness of breath or chest pain. Objective: Constitutional: Awake and alert, in no apparent distress ENT: Sclera are clear. Mucosa is moist. Respiratory: Lungs CTA bilaterally. No respiratory distress. Cardiovascular: Regular Rate and rhythm Gastrointestinal: Abdomen is soft, non distended, non tender, BS present. Musculoskeletal: No lower extremity edema. Neurologic: No focal neurological deficit. Mental Status: A&O x3, normal affect Skin: Petechiae over shins and arms. Assessment/plan: 54-year-old female comes to hospital at the request of her PCP due to low platelets found to have a platelet count of 3 suspected to be ITP flare up possibly triggered by underlying UTI, admitted for further management. # ITP flare: Thrombocytopenia platelet count of 2 on admission, 2 again on day two of admission. UTI likely trigger. Started Solu-Medrol 1 g daily for 3 days. Spoke with hematology splunk consultant Dr Buitrago who recommended same management as last time with IVIG, and IV steroids for 3 days however he would like a slower prednisone taper this time, he recommended staying on 60mg daily until she is seen at the hematology clinic. She has been assigned to establish care with Dr Garrison. Closely monitor for bleeding. Monitor platelet count. He recommended repeating IVIG on day two and giving 2u of platelets ~3 hours after transfusion. Fu hepB/C/H pylori. # UTI: UA positive. UCx pending. BCx positive for gram negative rode likely E Coli. Started on Levofloxacin on 08/09/20. # Hematuria: blood tinged urine, best examined by combination of ITP and UTI. Stable not worsening. # Leukocytosis: This is likely combination of from her prolonged steroid use this month as well as UTI. # RUSS: Cr1.48. Likely prerenal secondary to dehydration. Avoid nephrotoxins. Resolved with IVFs. # Dehydration: poor po intake likely from nausea, vomiting and diarrhea, better now. Could have been related to her underlying UTI. # Hypertension: normotensive, hold home meds. IVFs. Monitor and titrate # Hypokalemia: replaced. resolved # Depression/anxiety: continue home citalopram and buspirone # Hypothyroidism: resume Synthroid. # DVT prophylaxis: SCDs only due to thrombocytopenia A [facility] VS,Holden, I+O VS, Holden, I+O Laboratory Tests 08/09/20 12:57 08/09/20 12:58 08/10/20 05:42 Vital Signs Date Time Temp Pulse Resp B/P (MAP) Pulse Ox O2 Delivery O2 Flow Rate FiO2 08/10/20 08:00 97.8 72 18 121/74 (90) 96 Room Air I&O- Last 24 Hours up to 6 AM 08/10/20 06:00 Intake Total 5701 ml Output Total 2025 ml Balance 3676 ml CARLITO CHRISTIANSON MD Aug 10, 2020 11:49
[2020-08-10 15:14] LABS: HEMOGLOBIN 11.7 g/dl (12.0-15.5); MEAN CORPUSCULAR HEMOGLOBIN 36.2 pg (27.0-33.0); MEAN CORPUSCULAR HGB CONC 34.4 g/dl (32.0-36.5); MEAN CORPUSCULAR VOLUME 105.3 fl (80.0-96.0); PLATELET COUNT, AUTOMATED 10 10^3/uL (150-450); RED BLOOD COUNT 3.23 10^6/uL (4.00-5.40); WHITE BLOOD COUNT 41.9 10^3/uL (4.0-10.0)
--- NOTE | 2020-08-10 15:50 | MEDONCPDOC ---
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 PATIENT WAS RECENTLY ADMITTED WITH A PLT COUNT OF 2K ASSOCIATED ITH PHLEBITIS. THIS TIME PATIENT WAS ADMITTED WITH PLT COUNT OF 2K ASSOCIATED WITH URINBARY INFECTION. FOR SEVERAL YEARS PRIOR SHE HAS DONE WELL AND NOT REQUIRED STEROIDS NOR IV IGG Allergies Coded Allergies: Penicillins (Verified Allergy, Intermediate, hives/difficulty breathing, 05/07/19) Home Medications Reported Medications Prednisone (Prednisone) 10 Mg Tablet, 10 MG PO TAPER 40MG DAILY X 7 DAYS 30MG DAILY X 7 DAYS 20MG DAILY X 7 DAYS 10MG DAILY X 7 DAYS THEN STOP PT IS ON 2ND WEEK OF 30MG 08/09/20 Ibuprofen (Ibu-200) 200 Mg Tablet, 800 MG PO Q8H PRN for PAIN / FEVER 08/09/20 Biotin (Biotin) 1 Mg Capsule, 1 MG PO QHS, CAP 07/28/20 Spironolactone (Spironolactone) 25 Mg Tablet, 25 MG PO BID, TAB 07/28/20 Torsemide (Torsemide) 5 Mg Tablet, 10 MG PO QPM TAKES AT 1700 07/28/20 dilTIAZem HCl (Tiazac) 120 Mg Cap.sa.24h, 120 MG PO DAILY 07/28/20 Torsemide (Torsemide) 5 Mg Tablet, 20 MG PO DAILY 05/07/19 Buspirone HCl (Buspirone HCl) 5 Mg Tablet, 5 MG PO DAILY 05/07/19 Citalopram Hydrobromide (Citalopram HBr) 20 Mg Tab, 20 MG PO DAILY 11/23/17 Estradiol (Estradiol) 1 Mg Tab, 1 TAB PO DAILY 11/23/17 Pantoprazole Sodium (Pantoprazole Sodium) 20 Mg Tab, 20 MG PO DAILY 11/23/17 Levothyroxine Sodium (Levo-T) 137 Mcg Tab, 137 MCG PO DAILY 11/23/17 Discontinued Reported Medications Torsemide (Torsemide) 10 Mg Tablet, 10 MG PO TAPER 40mg daily x 7 days 30mg daily x 7 days 20mg daily x 7 days 10mg daily x 7 days pt is on 2nd week of taper dose 08/09/20 Sulfamethoxazole/Trimethoprim (Bactrim Ds Tablet) 1 Each Tablet, 1 TAB PO BID for 10 Days, TAB STARTED ON 07/21/20 07/28/20 Discontinued Scripts Prednisone (Prednisone) 10 Mg Tablet, 10 MG PO TAPER, #70 TAB Take 4 tabs daily x 7 days, then 3 tabs daily x 7 days, then 2 tabs daily x 7 days, then 1 tab daily x 7 days and stop. 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 Review of Systems General: Reports: Fatigue, Normal Appetite; Denies: Chills, Malaise Constitutional: Reports: Fatigue; Denies: Chills, Weight Loss Eyes: Denies: Vision change HEENT: Denies: Head Aches, Dysphagia, Sore Throat, Epistaxis Skin: Denies: Rash, Lesions, Jaundice, Bruising Pulmonary: Denies: Dyspnea, Cough Cardiovascular: Denies: Chest Pain, Palpitations, Orthopnea, Edema Gastrointestinal: Denies: Nausea, Vomiting, Diarrhea Genitourinary: Reports: Frequency (FREQUENCY AND DARK COLORED URIN WITH THIS EPISODE OF UTI), Hematuria; Denies: Incontinence Hematologic: Denies: Bruising, [place]chia Neurological: Reports: Weakness, Numbness; Denies: Change in Speech Psych: Reports: Mood Normal Physical Examination ECOG PERFORMANCE STATUS: 2 General Exam: Positive: Alert, No Acute Distress Eye Exam: Positive: PERRLA, Conjunctiva & lids normal; Negative: Sclera icteric ENT EXAM: Positive: Atraumatic, Mucous membr. moist/pink Neck Exam: Positive: Supple; Negative: JVD, Thyromegaly, Lymphadenopathy Chest Exam: Positive: Clear to auscultation, Normal air movement Heart Exam: Positive: Rate Normal Abdomen Exam: Negative: Tenderness, Hepatospenomegaly, Mass Lymph Nodes: Normal: Left Neck, Right Neck, Left Axilla, Right Axilla, Left Supraclavicular, Right Supraclavicular Extremity Exam: Negative: Clubbing, Cyanosis, Edema Skin Exam: Positive: Nl turgor and temperature; Negative: Rash, Breakdown, Lesion Neuro Exam: Positive: Normal Speech, Normal Tone Psych Exam: Positive: Mental status NL Ht / Wt Ht / Wt Height:5 Feet 7 Inches Weight: 81.600 Kg Vital Signs Vital Signs Date Time Temp Pulse Resp B/P (MAP) Pulse Ox O2 Delivery O2 Flow Rate FiO2 08/10/20 12:00 97.3 68 18 135/78 (97) 95 Room Air Laboratory Data Laboratory Tests Test 08/09/20 12:57 08/10/20 05:42 Blood Urea Nitrogen 24 MG/DL (7-18) H 20 MG/DL (7-18) H Creatinine 1.48 MG/DL (0.55-1.30) H 0.88 MG/DL (0.55-1.30) Glomerular Filtration Rate 39.0 (>51) L > 60.0 (>51) Fasting Glucose 108 MG/DL (70-100) H 125 MG/DL (70-100) H Calcium Level 8.5 MG/DL (8.5-10.1) 7.5 MG/DL (8.5-10.1) L Total Bilirubin 1.0 MG/DL (0.2-1.0) Aspartate Amino Transf (AST/SGOT) 43 U/L (7-37) H Alanine Aminotransferase (ALT/SGPT) 42 U/L (12-78) Total Protein 6.3 GM/DL (6.4-8.2) L Sodium Level 137 MEQ/L (136-145) 137 MEQ/L (136-145) Albumin 2.5 GM/DL (3.2-5.2) L Alkaline Phosphatase 108 U/L (45-117) Potassium Level 3.4 MEQ/L (3.5-5.1) L 4.1 MEQ/L (3.5-5.1) # Chloride Level 103 MEQ/L (98-107) 111 MEQ/L (98-107) H Carbon Dioxide Level 22 MEQ/L (21-32) 21 MEQ/L (21-32) Anion Gap 12 MEQ/L (8-16) 5 MEQ/L (8-16) L Laboratory Tests 08/09/20 12:57 08/09/20 12:58 08/10/20 05:42 08/10/20 14:35 Assessment/Plan 54-year-old lady with chronic recurrent ITP. She originally had a first episode 10 years ago with a platelet count of 3K so. 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 She has been on long-term recurrent steroids and IV IGG doing reasonably well. Last few years she has not follow-up with hematology did follow with PCP and had counts which were acceptable and had no bleeding. Most recently, patient had a infection with cellulitis of the foot her plt Count went to 2K. She responded quickly to high-dose steroids, IV IGG. Platelet count was in the mid 200s. She went to [place] to visit her daughter and grandchild. Unfortunately, as prednisone was being tapered from 40 to 30, she developed urinary tract infection. She went back to emergency room with a platelet count of 2, and white count 66,000. Patient didn't really feel dysuria however, she did have frequency and noted dark discoloration of the urine. Patient has been treated with antibiotics high-dose steroids, IV IGG. 24 hours after the initiation of treatment her plt count has increased to 10 K I requested to check patient for hepatitis C and B. We may consider rituximab in the future. Requested the patient have testing for H. pylori. H pylori may lead to ITP. If the patient does have for H. pylori please treate her with with triple antibiotics. Once patient is discharged I recommend she be put on high dose steroids. She should receive prednisone 1 mg/kg daily, ie 80 mg milligrams daily for 3 weeks. We will arrange for Dr Garrison to see her in the hematology oncology clinic at [facility] to reevaluate and potentially start lowering the dose of prednisone. In addition, to rituximab there are other options for the patient, such as Nplate and Fostamatinib Patient agrees to follow-up with hematology at [facility] and is looking forward to feeling better. I communicated with Dr. Son regarding these plans and we are in agreement. CC TO: CC TO: Primary Care Provider: Hitesh Restrepo Referring Provider: KIAH AMBROSIO MD Aug 10, 2020 15:50
[2020-08-10] MEDS: methylPREDNISolone 1,000 MG, VIAL MATE ADAPTER 1 EACH in NS 250 ML IV SCH (17:30)
[2020-08-10] MEDS ORDERED: diphenhydrAMINE 50MG/ML VIAL (J1200) IV ONE (21:00)
[2020-08-11] VITALS (7 sets, daily range): BP systolic 157–180; BP diastolic 77–100
[2020-08-11 05:37] LABS: BASO # 0.2 10^3/uL (0.0-0.2); BASO % 0.4 % (0.0-1.0); HEMATOCRIT 32.3 % (36.0-47.0); HEMOGLOBIN 11.3 g/dl (12.0-15.5); LYMPH # 0.6 10^3/uL (1.5-5.0); LYMPH % 1.5 % (24.0-44.0); MEAN CORPUSCULAR HEMOGLOBIN 36.1 pg (27.0-33.0); MEAN CORPUSCULAR VOLUME 103.2 fl (80.0-96.0); MONO # 1.5 10^3/uL (0.0-0.8); MONO % 3.6 % (2.0-8.0); NEUTROPHILS # 36.2 10^3/uL (1.5-8.5); NEUTROPHILS % 90.2 % (36.0-66.0); RED BLOOD COUNT 3.13 10^6/uL (4.00-5.40)
[2020-08-11 05:43] LABS: PLATELET COUNT, AUTOMATED 52 10^3/uL (150-450); WHITE BLOOD COUNT 40.1 10^3/uL (4.0-10.0)
[2020-08-11 06:00] LABS: BLOOD UREA NITROGEN 22 MG/DL (7-18); CARBON DIOXIDE LEVEL 20 MEQ/L (21-32); CHLORIDE LEVEL 116 MEQ/L (98-107); CREATININE FOR GFR 0.74 MG/DL (0.55-1.30); GLOMERULAR FILTRATION RATE > 60.0 (>51); GLUCOSE, FASTING 139 MG/DL (70-100); SODIUM LEVEL 141 MEQ/L (136-145)
[2020-08-11] MEDS: LEVOTHYROXINE 137MCG TABLET (0.137MG) PO SCH (06:02)
[2020-08-11] MEDS: THIAMINE 100 MG TAB PO SCH (08:23)
[2020-08-11] MEDS: FOLIC ACID 1 MG TAB PO SCH (08:23)
[2020-08-11] MEDS: busPIRone 5 MG TAB PO SCH (08:23)
[2020-08-11] MEDS: MULTIVITAMINS/MINERALS THERAP 1 TAB PO SCH (08:23)
[2020-08-11] MEDS: PANTOPRAZOLE 20 MG TAB PO SCH (08:24)
[2020-08-11] MEDS: CitaloPRAM (CeleXA) 20 MG TAB PO SCH (08:24)
[2020-08-11] MEDS ORDERED: SPIRONOLACTONE 25 MG TAB PO SCH (09:00)
[2020-08-11] MEDS: DOCUSATE SODIUM 100MG CAPSULE PO SCH (09:00)
[2020-08-11] MEDS ORDERED: LEVO750T13 PO (10:16)
[2020-08-11] MEDS ORDERED: PRED20TA PO (10:16)
[2020-08-11] MEDS ORDERED: LISI10TA22 PO (10:16)
--- NOTE | 2020-08-11 10:28 | DS.PDOC ---
Discharge Summary General Date of Admission Aug 09, 2020 at 15:22 Date of Discharge 08/11/20 Discharge Summary PROCEDURES PERFORMED DURING STAY: [None]. ADMITTING/DISCHARGE DIAGNOSES: 1. ITP, acute 2. UTI COMPLICATIONS/CHIEF COMPLAINT: Acute Itp, Thrombocytopenia. HISTORY OF PRESENT ILLNESS/HOSPITAL COURSE: 54-year-old female comes to hospital at the request of her PCP due to low platelets found to have a platelet count of 3 suspected to be ITP flare up possibly triggered by underlying UTI, admitted for further management. # ITP flare: Thrombocytopenia platelet count of 2 on admission, 2 again on day two of admission. UTI likely trigger. Solu-Medrol 1 g daily for 3 days. Spoke with hematology bss solution architect Dr Buitrago who saw the patient. Followed plan with IVIG on day 1 and 2. Platelets did improve to 10 after about 24 hrs and then up to 52 on day of discharge. UCx grew E.coli so did BCx, sensitive to levofloxacin which she will be sent home on for [address] Buitrago recommended prednis one at 1g/kg ~ 80mg to be prescribed for 3 weeks until she is seen by Dr Garrison her new product ambassador in the clinic in the coming weeks. H Pylori stool angigen is pending which she should follow up with her PCP and treat if positive as it can trigger ITP. # Hematuria: blood tinged urine, best explained by combination of ITP and UTI. Improving with resolution of the ITP and UTI now. # Leukocytosis: This is likely combination of from her prolonged steroid use this month as well as UTI and has downtrended. # RUSS: Cr1.48. Likely prerenal secondary to dehydration. Avoid nephrotoxins. Resolved with IVFs. # Dehydration: poor po intake likely from nausea, vomiting and diarrhea, resolved now. Could have been related to her underlying UTI. # Hypertension: Torsemide stopped. Lisinopril started. diltiazem continued. Needs to fu with PCP for better BP antihypertensive drug choice and control. IVFs. Monitor and titrate # Hypokalemia: replaced. resolved DISCHARGE MEDICATIONS: Please see below. ALLERGIES: Please see below. PHYSICAL EXAMINATION ON DISCHARGE: VITAL SIGNS: Please see below. Constitutional: Awake and alert, in no apparent distress ENT: Sclera are clear. Mucosa is moist. Respiratory: Lungs CTA bilaterally. No respiratory distress. Cardiovascular: Regular Rate and rhythm Gastrointestinal: Abdomen is soft, non distended, non tender, BS present. Musculoskeletal: No lower extremity edema. Neurologic: No focal neurological deficit. Mental Status: A&O x3, normal affect Skin: Petechiae over shins and arms. LABORATORY DATA: Please see below. IMAGING: see chart PROGNOSIS: fair ACTIVITY: [As tolerated]. DIET: low salt diet DISPOSITION: home DISCHARGE INSTRUCTIONS: Please follow up with your primary care physician within 1 week from discharge. If you do not have one, please follow up with us to schedule an appointment. Please keep all of your follow up appointments. Please call central to book your appointments with hospital specialists. Please take all your medications as prescribed. Please call/come to Clinic or go to the Emergency Department if - Temp >101, intractable Nausea/Vomiting, Diarrhea, Mouth sores, Headaches, Altered mental status, Seizures, sudden onset of swelling, bleeding, shortness of breath or chest pain. ITEMS TO FOLLOWUP ON ON OUTPATIENT: 1. Follow-up with product ambassador Dr. Garrison DISCHARGE CONDITION: [Stable]. TIME SPENT ON DISCHARGE: 35 minutes. Vital Signs/I&Os Vital Signs Date Time Temp Pulse Resp B/P (MAP) Pulse Ox O2 Delivery O2 Flow Rate FiO2 08/11/20 08:24 160/100 08/11/20 07:27 97.9 63 18 96 Room Air I&O- Last 24 Hours up to 6 AM 08/11/20 06:00 Intake Total 1756 ml Output Total 2900 ml Balance -1144 ml Laboratory Data Labs 24H Laboratory Tests 2 08/10/20 11:43: 08/10/20 14:35: Nucleated Red Blood Cells % (auto) 0.2H, Immature Platelet Fraction 50.4H 08/11/20 05:21: Nucleated Red Blood Cells % (auto) 0.3H, Immature Granulocyte % (Auto) 4.3H, Neutrophils (%) (Auto) 90.2H, Lymphocytes (%) (Auto) 1.5L, Monocytes (%) (Auto) 3.6, Eosinophils (%) (Auto) 0.0, Basophils (%) (Auto) 0.4, Neutrophils # (Auto) 36.2H, Lymphocytes # (Auto) 0.6L, Monocytes # (Auto) 1.5H, Eosinophils # (Auto) 0.0, Basophils # (Auto) 0.2, Anion Gap 5L, Glomerular Filtration Rate > 60.0, Calcium Level 8.0L CBC/BMP Laboratory Tests 08/10/20 14:35 08/11/20 05:21 Microbiology Microbiology 08/09/20 Respiratory Virus Panel (PCR) (TJ) - Final, Complete 08/09/20 Urine Culture - Final, Complete Escherichia Coli 08/09/20 Blood Culture - Preliminary, Resulted 08/09/20 Blood Culture - Preliminary, Resulted Discharge Medications Scheduled Biotin (Biotin) 1 Mg Capsule, 1 MG PO QHS, (Reported) Buspirone HCl (Buspirone HCl) 5 Mg Tablet, 5 MG PO DAILY, (Reported) Citalopram Hydrobromide (Citalopram HBr) 20 Mg Tab, 20 MG PO DAILY, (Reported) Estradiol (Estradiol) 1 Mg Tab, 1 TAB PO DAILY, (Reported) Levothyroxine Sodium (Levo-T) 137 Mcg Tab, 137 MCG PO DAILY, (Reported) Pantoprazole Sodium (Pantoprazole Sodium) 20 Mg Tab, 20 MG PO DAILY, (Reported) Prednisone (Prednisone) 10 Mg Tablet, 10 MG PO TAPER, (Reported) 40MG DAILY X 7 DAYS 30MG DAILY X 7 DAYS 20MG DAILY X 7 DAYS 10MG DAILY X 7 DAYS THEN STOP PT IS ON 2ND WEEK OF 30MG Spironolactone (Spironolactone) 25 Mg Tablet, 25 MG PO BID, (Reported) Torsemide (Torsemide) 5 Mg Tablet, 20 MG PO DAILY, (Reported) Torsemide (Torsemide) 5 Mg Tablet, 10 MG PO QPM, (Reported) TAKES AT 1700 dilTIAZem HCl (Tiazac) 120 Mg Cap.sa.24h, 120 MG PO DAILY, (Reported) Scheduled PRN Ibuprofen (Ibu-200) 200 Mg Tablet, 800 MG PO Q8H PRN for PAIN / FEVER, (Reported) Allergies Coded Allergies: Penicillins (Verified Allergy, Intermediate, hives/difficulty breathing, 05/07/19) CARLITO CHRISTIANSON MD Aug 11, 2020 10:28
[2020-08-11] MEDS ORDERED: methylPREDNISolone 1,000 MG, VIAL MATE ADAPTER 1 EACH in NS 250 ML IV SCH (12:00)
[2020-08-11] MEDS ORDERED: LevoFLOXacin IV 750 MG in IV 1 EA IV SCH (15:00)
== END 2020-08-11 15:00 | disposition home or self-care (01) | DRG 813 ==
LOC: M ED 12:28 → M ED INP 15:22 → ENRESERV 16:23 → M PCU 17:17
PROVIDERS: ADMIT Family Medicine; ATTEND Family Medicine
DX: D69.3 Immune thrombocytopenic purpura (principal); N39.0 Urinary tract infection, site not specified; N17.9 Acute kidney failure, unspecified; I10 Essential (primary) hypertension; E03.9 Hypothyroidism, unspecified; Z90.79 Acquired absence of other genital organ(s); D72.829 Elevated white blood cell count, unspecified; E87.6 Hypokalemia; F32.9 Major depressive disorder, single episode, unspecified; F41.9 Anxiety disorder, unspecified; Z79.899 Other long term (current) drug therapy; Z88.0 Allergy status to penicillin; F17.210 Nicotine dependence, cigarettes, uncomplicated; L97.519 Non-pressure chronic ulcer of other part of right foot with unspecified severity; K21.9 Gastro-esophageal reflux disease without esophagitis; E86.0 Dehydration; Z20.822 Contact with and (suspected) exposure to COVID-19; B96.20 Unspecified Escherichia coli [E. coli] as the cause of diseases classified elsewhere; Z91.19 Patient's noncompliance with other medical treatment and regimen

== ENCOUNTER → 2020-08-15 | Outpatient (CLI) | payer OTHER ==
[~2020-08-15] MED LIST changes: +IBUP200T45 PO; +LEVO750T13 PO; +LISI10TA22 PO; +PRED20TA PO
[2020-08-15 15:04] LABS: HEMATOCRIT 39.9 % (36.0-47.0); HEMOGLOBIN 14.1 g/dl (12.0-15.5); MEAN CORPUSCULAR HEMOGLOBIN 35.9 pg (27.0-33.0); MEAN CORPUSCULAR HGB CONC 35.3 g/dl (32.0-36.5); MEAN CORPUSCULAR VOLUME 101.5 fl (80.0-96.0); PLATELET COUNT, AUTOMATED 232 10^3/uL (150-450); RED BLOOD COUNT 3.93 10^6/uL (4.00-5.40); WHITE BLOOD COUNT 29.2 10^3/uL (4.0-10.0)
== END ==
LOC: M LAB 13:51
PROVIDERS: ATTEND Family Medicine
DX: D69.3 Immune thrombocytopenic purpura (principal)

== ENCOUNTER → 2020-08-22 | Outpatient (CLI) | payer OTHER ==
[2020-08-22 13:29] LABS: HEMATOCRIT 39.2 % (36.0-47.0); HEMOGLOBIN 14.2 g/dl (12.0-15.5); MEAN CORPUSCULAR HEMOGLOBIN 36.5 pg (27.0-33.0); MEAN CORPUSCULAR HGB CONC 36.2 g/dl (32.0-36.5); MEAN CORPUSCULAR VOLUME 100.8 fl (80.0-96.0); PLATELET COUNT, AUTOMATED 293 10^3/uL (150-450); RED BLOOD COUNT 3.89 10^6/uL (4.00-5.40); WHITE BLOOD COUNT 28.8 10^3/uL (4.0-10.0)
== END ==
LOC: M LAB 12:28
PROVIDERS: ATTEND Family Medicine
DX: D69.3 Immune thrombocytopenic purpura (principal)

== ENCOUNTER 2020-09-02 18:09 | Inpatient (IN) | payer OTHER ==
[~2020-09-02] VITALS: Ht 170.2 cm; Wt 83.3 kg
[~2020-09-02 18:09] MED LIST changes: +PRED5PAK PO; +PROM50TA28 PO
[2020-09-02 20:55] LABS: HEMATOCRIT 39.7 % (36.0-47.0); HEMOGLOBIN 14.4 g/dl (12.0-15.5); MEAN CORPUSCULAR HEMOGLOBIN 36.9 pg (27.0-33.0); MEAN CORPUSCULAR HGB CONC 36.3 g/dl (32.0-36.5); MEAN CORPUSCULAR VOLUME 101.8 fl (80.0-96.0)
[2020-09-02 20:57] LABS: WHITE BLOOD COUNT 25.7 10^3/uL (4.0-10.0)
[2020-09-02 21:00] LABS: PLATELET COUNT, AUTOMATED 4 10^3/uL (150-450)
[2020-09-02] MEDS ORDERED: methylPREDNISolone 1,000 MG, VIAL MATE ADAPTER 1 EACH in NS 250 ML IV ONE (21:20)
[2020-09-02 21:24] LABS: BLOOD UREA NITROGEN 13 MG/DL (7-18); CALCIUM LEVEL 8.2 MG/DL (8.5-10.1); CARBON DIOXIDE LEVEL 29 MEQ/L (21-32); CHLORIDE LEVEL 98 MEQ/L (98-107); CREATININE FOR GFR 0.49 MG/DL (0.55-1.30); GLOMERULAR FILTRATION RATE > 60.0 (>51); GLUCOSE, FASTING 56 MG/DL (70-100); POTASSIUM SERUM 3.3 MEQ/L (3.5-5.1); SODIUM LEVEL 133 MEQ/L (136-145)
[2020-09-02] MEDS ORDERED: LISI10TA22 PO (21:37)
[2020-09-02] MEDS ORDERED: PRED5TA PO (21:37)
[2020-09-02 21:38] LABS: ATYPICAL LYMPH 2 % (0-5); EOSINOPHILS 1 % (0-3); LYMPHOCYTES 9 % (16-44); MONOCYTES 5 % (0-5); NEUTROPHILS 83 % (28-66)
[2020-09-02] MEDS ORDERED: TORS5TAB2 PO ×2 (21:38)
[2020-09-02 21:39] LABS: PLATELET ESTIMATE MARKED DECREASE (NORMAL)
[2020-09-02 21:44] LABS: RSV AMPLIFICATION NEGATIVE (NEGATIVE)
[2020-09-02] MEDS ORDERED: IMMUNE GLOBULIN 10% 0 GM in IV 1 EA IV SCH (22:25)
[2020-09-02] MEDS ORDERED: MAALOX 30 ML SUSP *UDC PO PRN (22:25)
[2020-09-02] MEDS ORDERED: MOM 30ML SUSPENSION UDC PO PRN (22:25)
[2020-09-02] MEDS ORDERED: ACETAMINOPHEN TAB 650MG DOSE (2X325MG) PO PRN (22:25)
[2020-09-02] MEDS ORDERED: diphenhydrAMINE 50MG CAP PO ONE (22:30)
--- NOTE | 2020-09-02 22:42 | HPEPDOC ---
[facility] Medical History & Physical Date of Admission Sep 03, 2020 Date of Service: Sep 03, 2020 Attending Physician: MALACHI GLEASON MD History and Physical CHIEF COMPLAINT: [54 y/o female c/o petechial rash x1 day] HISTORY OF PRESENT ILLNESS: [This is a 54 y/o female with a pmh of immune thrombocytopenic purpura s/p splenectomy, htn and hypothyroidism who presents to the ED on 09/02 with a complaint of petechial rash on extremities and trunk and believes that she is in acute itp flair. Patient states that this is what usually happens when she is in itp flair. Rash began in the last day. Patient states that she believes that she has an abscessed tooth and that this infection is the cause of her itp flair. Patient states that she first noticed the tooth pain and swelling in her right sided jaw about 5 days ago and has had no relief since. Patient states that she has also noted some swelling of a chronic wound that she has on her right third toe. Patient states that she follow podiatry for this but has no specific wound care instructions and that they were simply supposed to fix the hammer toe. Patient is denying fevers, chills, inability to handle secretions, sore throat, sob, chest pain, abd pain, n/v/d/c, hematuria, dark stools. Patient found to have platelet count of 4 in the ED. ] PAST MEDICAL HISTORY: 1. [See HPI PAST SURGICAL HISTORY: 1. [Splenectomy]. 2. [Appendectomy]. 3. [Gastric sleeve 4. Hysterectomy]. SOCIAL HISTORY: Tobacco use:[Denies] ETOH: [Denies] Illicit drug use: [Denies] FAMILY HISTORY: Reviewed - none pertinent ALLERGIES: Please see below. REVIEW OF SYSTEMS: CONSTITUTIONAL: [See HPI]. HEENT: [See HPI]. CARDIOVASCULAR: [See HPI]. RESPIRATORY: [See HPI]. GASTROINTESTINAL: [See HPI]. GENITOURINARY: [See HPI]. SKIN: [See HPI]. MUSCULOSKELETAL: [Denies acute joint/back pain]. NEUROLOGICAL: [Denies syncope, paresthesias]. ENDOCRINE: [Denies hx of DM]. HEMATOLOGIC/LYMPHATIC: [Hx of ITP]. HOME MEDICATIONS: Please see below. PHYSICAL EXAMINATION: VITAL SIGNS: Please see below. GENERAL APPEARANCE: [This is a 54 y/o female who does not appear to be in any acute respiratory distress. She is seated comfortably in bed.]. HEENT: [Marked swelling to right buccal region. No overlying erythema. Exam of oral mucosa shows poor dentition throughout with an area of what appears to be purulent discharge at the lower right molars. Oral mucosa is moist. EOMI. No scleral icterus.]. CARDIOVASCULAR: [Regular rate, rhythm. No murmurs, rubs, gallops]. LUNGS: [Decreased breath sounds in b/l upper lobes. Expiratory wheezing noted in b/l upper lobes.]. ABDOMEN: [Soft, nontender.]. MUSCULOSKELETAL: [No joint deformity.]. EXTREMITIES: [There is a petechial rash scattered to all extremities and on to the chest. The right third toe is swollen and erythematous. There is what appears to be some cracking in between the third and fourth toe and some oozing blood. There is an ulcer on the pad of the distal phalanx that has no noticeable drainage. There is no obvious peripheral edema. Pulses intact.]. NEUROLOGICAL: [Speech clear. A+Ox3. No focal deficits.]. PSYCHIATRIC: [mood and affect appear appropriate.]. LABORATORY DATA: See below. IMAGING: [Neck CT: FINDINGS: Limitations: Artifact arising from metallic dental hardware. Nasopharynx: Unremarkable. Oropharynx: Unremarkable. No significant tonsillar enlargement. Hypopharynx: Unremarkable. Larynx: Unremarkable. Normal epiglottis. Retropharyngeal space: Unremarkable. Submandibular/Parotid glands: Normal. Glands are normal in size. Thyroid: Normal. No enlarged or calcified nodules. Lymph nodes: Unremarkable. No lymphadenopathy. Trachea: Visualized trachea is unremarkable. Lungs: Unremarkable as visualized. Bones/joints: There are degenerative changes involving the spine. Vasculature: Vascular calcification. Soft tissues: Right perimandibular soft tissue swelling and infiltrative change. IMPRESSION: 1. Right perimandibular soft tissue swelling and infiltrative change concerning for cellulitis. 2. Limited evaluation for abscess without intravenous contrast. Head CT: FINDINGS: Brain: Mild volume loss. No acute intracranial hemorrhage, midline shift or intracranial mass effect. No cerebral edema. Cerebral ventricles: No hydrocephalus. Paranasal sinuses: Visualized sinuses are unremarkable. No fluid levels. Mastoid air cells: Visualized mastoid air cells are well aerated. Bones/joints: Unremarkable. No acute fracture. Soft tissues: Unremarkable. IMPRESSION: No acute intracranial abnormality. ] MICROBIOLOGY: Please see below. ASSESSMENT: [[This is a 54 y/o female with a pmh of immune thrombocytopenic pur nicolás s/p splenectomy, htn and hypothyroidism who presents to the ED on 09/02 with a complaint of petechial rash on extremities and trunk and believes that she is in acute itp flair. Patient found to have platelet count of 4 in the ED. Patient also found to have apical abscess vs. facial cellulitis as well as possible cellulitis of right third toe.]. . PLAN: 1. [Acute ITP - patient given 1g methylprednisolone and 2 units platelets in the ED - will begin 40mg iv decadron daily on the floor - ivig 1g/kg ordered - will monitor platelet count - day team should consider heme consult - admit to pcu for tx 2. Facial cellulitis vs. apical abscess - Clinical exam shows possible apical abscess however this is not apparent on ct imaging. ct imaging limited by lack of contrast - Either way, patient is not a candidate for I&D with her current platelets - Begin iv levaquin and clindamycin for tx - liquid diet for now - only sirs criteria at this time is wbc of 25.7, however pt has been on steroids 3. Possible right third toe cellulitis - patient on abx as stated above - recommend wound consult for chronic nonhealing ulcer 4. HTN - continue torsemide, diltiazem, lisinopril 5. Hypothyroidism - continue synthroid 6. GERD - continue protonix 7. Depression/anxiety - continue celexa, buspar DVT prophylaxis - pt platelet count is 4]. Vital Signs Vital Signs Date Time Temp Pulse Resp B/P (MAP) Pulse Ox O2 Delivery O2 Flow Rate FiO2 09/02/20 21:04 09/02/20 21:04 80 14 98 Room Air 09/02/20 18:13 97.4 Laboratory Data Labs 24H Laboratory Tests 2 09/02/20 20:33: Immature Granulocyte % (Auto) , Neutrophils (%) (Auto) , Reticulocyte # (auto) 199.3H, Nucleated Red Blood Cells % (auto) 0.2H, Neutrophils 83H, Lymphocytes (Manual) 9L, Monocytes (Manual) 5, Eosinophils (Manual) 1, Atypical Lymphocytes 2, Macrocytosis 1+, Platelet Estimate MARKED DECREASE, Differential Slide Review Report, Peripheral Blood Smear Path Consult PERIPHERAL SMEAR, Percent Reticulocyte Count 5.1H, Reticulocyte Hemoglobin Equivalent 41.1H, Anion Gap 6L, Glomerular Filtration Rate > 60.0, Calcium Level 8.2L, Coronavirus (COVID- 19)(PCR) NEGATIVE, Influenza Type A (RT-PCR) NEGATIVE, Influenza Type B (RT-PCR) NEGATIVE, Respiratory Syncytial Virus (PCR) NEGATIVE CBC/BMP Laboratory Tests 09/02/20 20:33 Home Medications Scheduled Biotin (Biotin) 1 Mg Capsule, 1 MG PO QHS Buspirone HCl (Buspirone HCl) 5 Mg Tablet, 5 MG PO DAILY Citalopram Hydrobromide (Citalopram HBr) 20 Mg Tab, 20 MG PO DAILY Eltrombopag Olamine (Promacta) 50 Mg Tablet, 50 MG PO DAILY Estradiol (Estradiol) 1 Mg Tab, 1 MG PO DAILY Levothyroxine Sodium (Levo-T) 137 Mcg Tab, 137 MCG PO DAILY Lisinopril (Lisinopril) 10 Mg Tablet, 10 MG PO DAILY Pantoprazole Sodium (Pantoprazole Sodium) 20 Mg Tab, 20 MG PO DAILY Prednisone (Prednisone) 5 Mg Tablet, 40 MG PO DAILY pt states doc is decreasing by 10mg every 7 days,is to take 30mg starting 09/03 x 7 days Spironolactone (Spironolactone) 25 Mg Tablet, 25 MG PO BID Torsemide (Torsemide) 5 Mg Tablet, 20 MG PO QAM Torsemide (Torsemide) 5 Mg Tablet, 10 MG PO QPM dilTIAZem HCl (Tiazac) 120 Mg Cap.sa.24h, 120 MG PO DAILY Allergies Coded Allergies: Penicillins (Verified Allergy, Intermediate, hives/difficulty breathing, 05/07/19) A-FIB/CHADSVASC A-FIB History Current/History of A-Fib/PAF?: No JEREMY WISE Sep 02, 2020 22:42
--- NOTE | 2020-09-02 23:31 | REPVR ---
PROCEDURE INFORMATION: Exam: CT Head Without Contrast Exam date and time: 09/02/2020 10:44 PM Age: 54 years old Clinical indication: Mass, lump, or localized swelling; Face; Additional info: Right sided facial swelling TECHNIQUE: Imaging protocol: Computed tomography of the head without contrast. Radiation optimization: All CT scans at this facility use at least one of these dose optimization techniques: automated exposure control; mA and/or kV adjustment per patient size (includes targeted exams where dose is matched to clinical indication); or iterative reconstruction. COMPARISON: No relevant prior studies available. FINDINGS: Brain: Mild volume loss. No acute intracranial hemorrhage, midline shift or intracranial mass effect. No cerebral edema. Cerebral ventricles: No hydrocephalus. Paranasal sinuses: Visualized sinuses are unremarkable. No fluid levels. Mastoid air cells: Visualized mastoid air cells are well aerated. Bones/joints: Unremarkable. No acute fracture. Soft tissues: Unremarkable. IMPRESSION: No acute intracranial abnormality. Electronically signed by: Noe Sims On 09/02/2020 23:31:03 PM
--- NOTE | 2020-09-02 23:34 | REPVR ---
PROCEDURE INFORMATION: Exam: CT Neck Without Contrast Exam date and time: 09/02/2020 10:44 PM Age: 54 years old Clinical indication: Mass, lump, or swelling in neck; Right; Additional info: Right sided facial swelling TECHNIQUE: Imaging protocol: Computed tomography images of the neck without contrast. Radiation optimization: All CT scans at this facility use at least one of these dose optimization techniques: automated exposure control; mA and/or kV adjustment per patient size (includes targeted exams where dose is matched to clinical indication); or iterative reconstruction. COMPARISON: NM PORTABLE CHEST X-RAY 08/09/2020 4:01 PM FINDINGS: Limitations: Artifact arising from metallic dental hardware. Nasopharynx: Unremarkable. Oropharynx: Unremarkable. No significant tonsillar enlargement. Hypopharynx: Unremarkable. Larynx: Unremarkable. Normal epiglottis. Retropharyngeal space: Unremarkable. Submandibular/Parotid glands: Normal. Glands are normal in size. Thyroid: Normal. No enlarged or calcified nodules. Lymph nodes: Unremarkable. No lymphadenopathy. Trachea: Visualized trachea is unremarkable. Lungs: Unremarkable as visualized. Bones/joints: There are degenerative changes involving the spine. Vasculature: Vascular calcification. Soft tissues: Right perimandibular soft tissue swelling and infiltrative change. IMPRESSION: 1. Right perimandibular soft tissue swelling and infiltrative change concerning for cellulitis. 2. Limited evaluation for abscess without intravenous contrast. Electronically signed by: Noe Sims On 09/02/2020 23:33:34 PM
[2020-09-03] MEDS: SPIRONOLACTONE 25 MG TAB PO SCH ×3 (01:59→20:43)
[2020-09-03] MEDS: CLINDAMYCIN 600 MG in IV 1 EA IV SCH ×5 (02:27→23:14)
[2020-09-03] MEDS ORDERED: IMMUNE GLOBULIN 10% 10 GM in IV 1 EA IV ONE (02:30)
[2020-09-03] MEDS ORDERED: IMMUNE GLOBULIN 10% 20 GM in IV 1 EA IV ONE (02:30)
[2020-09-03] MEDS ORDERED: IMMUNE GLOBULIN 10% 40 GM in IV 1 EA IV ONE (02:30)
[2020-09-03 03:02] VITALS: BP 155/72
[2020-09-03] MEDS ORDERED: POTASSIUM CHLORIDE 10 MEQ SR TABLET PO ONE (03:10)
[2020-09-03 03:17] VITALS: BP 166/80
[2020-09-03] MEDS: LEVOTHYROXINE 137MCG TABLET (0.137MG) PO SCH (06:04)
[2020-09-03 08:07] LABS: HEMATOCRIT 37.4 % (36.0-47.0); HEMOGLOBIN 13.4 g/dl (12.0-15.5); MEAN CORPUSCULAR HEMOGLOBIN 37.1 pg (27.0-33.0); MEAN CORPUSCULAR HGB CONC 35.8 g/dl (32.0-36.5); MEAN CORPUSCULAR VOLUME 103.6 fl (80.0-96.0); RED BLOOD COUNT 3.61 10^6/uL (4.00-5.40); WHITE BLOOD COUNT 18.2 10^3/uL (4.0-10.0)
[2020-09-03 08:12] LABS: PLATELET COUNT, AUTOMATED 7 10^3/uL (150-450)
[2020-09-03 08:33] LABS: ALBUMIN 2.4 GM/DL (3.2-5.2); ALT/SGPT 55 U/L (12-78); BILIRUBIN,TOTAL 0.8 MG/DL (0.2-1.0); BLOOD UREA NITROGEN 10 MG/DL (7-18); CALCIUM LEVEL 8.3 MG/DL (8.5-10.1); CARBON DIOXIDE LEVEL 26 MEQ/L (21-32); CHLORIDE LEVEL 102 MEQ/L (98-107); CREATININE FOR GFR 0.42 MG/DL (0.55-1.30); GLOMERULAR FILTRATION RATE > 60.0 (>51); GLUCOSE, FASTING 134 MG/DL (70-100); POTASSIUM SERUM 3.6 MEQ/L (3.5-5.1); SODIUM LEVEL 138 MEQ/L (136-145); TOTAL PROTEIN 6.2 GM/DL (6.4-8.2)
[2020-09-03] MEDS: LevoFLOXacin IV 750 MG in IV 1 EA IV SCH (08:55)
[2020-09-03] MEDS: dexameTHASONE 20MG/5ML VIAL (J1100 PER 1MG) IV SCH (08:59)
[2020-09-03] MEDS: TORSEMIDE 20 MG TAB PO SCH (08:59)
[2020-09-03] MEDS: busPIRone 5 MG TAB PO SCH (08:59)
[2020-09-03] MEDS: PANTOPRAZOLE 20 MG TAB PO SCH (08:59)
[2020-09-03] MEDS: estradioL 1 MG TAB PO SCH (09:00)
[2020-09-03] MEDS: CitaloPRAM (CeleXA) 20 MG TAB PO SCH (09:00)
[2020-09-03 10:08] LABS: LYMPHOCYTES 3 % (16-44); METAMYELOCYTES 1 % (0-0); MONOCYTES 1 % (0-5); MYELOCYTES 1 % (0-0); NEUTROPHILS 92 % (28-66); PLATELET ESTIMATE MARKED DECREASE (NORMAL)
[2020-09-03 10:09] LABS: HOWELL-JOLLY BODIES 1+
--- NOTE | 2020-09-03 10:21 | IPNPDOC ---
Text Note Date of Service The patient was seen on 09/03/20. NOTE Subjective: Patient seen and examined at bedside in the ED. No acute overnight events reported. Patient voices no new medical complaints this morning. 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 Garrison. Patient found to have platelet count of 4 in the ED. Patient also found to have dental abscess - no recent procedures - started 08/29/20 - seen in 08/31 and started clinda, and possible cellulitis of right third toe - already follows with podiatry. #Acute ITP - patient given 1g methylprednisolone and 2 units platelets in the ED - continue 40mg iv decadron daily on the floor - ivig 1g/kg ordered - will monitor platelet count - discussed with oncology - continue decadron, IVIF - consultation pending - assistance appreciated # Facial cellulitis vs. apical abscess - Clinical exam shows possible apical abscess however this is not apparent on ct imaging. ct imaging limited by lack of contrast - not a candidate for I&D given thrombocytopenia - iv levaquin and clindamycin for tx - liquid diet for now #Possible right third toe cellulitis - patient on abx as stated above - podiatry c/s pending #HTN - continue torsemide, diltiazem, lisinopril #Hypothyroidism - continue synthroid #GERD - continue protonix #Depression/anxiety - continue celexa, buspar #DVT prophylaxis - mechanical VS,Fishbone, I+O VS, Fishbone, I+O Laboratory Tests 09/02/20 20:33 09/03/20 07:44 Vital Signs Date Time Temp Pulse Resp B/P (MAP) Pulse Ox O2 Delivery O2 Flow Rate FiO2 09/03/20 09:01 137/74 09/03/20 09:00 64 7/10/21 06:45 16 91 Room Air 09/03/20 03:17 97.1 I&O- Last 24 Hours up to 6 AM 09/03/20 06:00 Intake Total 276 ml Balance 276 ml KYLEIGH DE JESUS MD Sep 03, 2020 09:57
[2020-09-03 12:24] VITALS: BP 137/82
--- NOTE | 2020-09-03 12:33 | CR ---
CONSULTATION DATE: 09/03/2020 REASON FOR CONSULTATION: Toe ulceration. HISTORY OF PRESENT ILLNESS: Meredith Laws is a 54-year-old female who has been following with me with a right toe ulcer over the last few months. There were initial plans to do a hammertoe surgery to correct the deformity which was causing the ulceration. However, due to her platelets this had to be postponed. She had been seen earlier this week in my office with wound having improved but this has since worsened for which I have been consulted. MEDICAL HISTORY: Significant for history of ITP, hypertension, hypothyroidism. SURGICAL HISTORY: Splenectomy, appendectomy, gastric sleeve, hysterectomy. SOCIAL HISTORY: Denies smoking and alcohol use. ALLERGIES: PENICILLINS. REVIEW OF SYSTEMS: She denies nausea, vomiting, fever or chills. LABORATORY DATA: Reviewed. White blood cell count on admission 25.7, today is 18.2. Platelet count today is 7. PHYSICAL EXAMINATION: Lower extremity examination: There is erythema and edema of the right 3rd toe with small abscess to the lateral aspect of it with some slight purulent drainage. ASSESSMENT: 54-year-old female with 3rd toe abscess and ITP with significant low platelet count. PLAN: Small bedside wound debridement performed using #15 blade excisional fashion including subcutaneous tissue was performed. Wound culture was taken. Wound dressings ordered. Ideally would postpone any surgery be it amputation or corrected hammertoe until platelet count is elevated. At this time the wound does not appear to be causing systemic effects so no urgent surgical intervention is required. Will follow.
[2020-09-03] MEDS ORDERED: SLF 3 ML SYR IV PRN (12:35)
[2020-09-03] MEDS: SLF 3 ML SYR IV SCH ×2 (13:59→20:43)
--- NOTE | 2020-09-03 15:21 | CR.PDOC ---
General Date of Consultation: Sep 03, 2020 Referring Provider: KYLEIGH DE JESUS MD Consultation REASON FOR CONSULTATION/CHIEF COMPLAINT: Refractory Idiopathic Thrombocytopenic Purpura. HEMATOLOGY PROBLEM LIST 1. Refractory ITP s/p splenectomy with only brief response to IV IgG and steroids. Started c-myc agonist recently. Excellent candidate for rituximab 2. Chronic leukocytosis from TOB use and steroids 3. Due for annual LDCT chest given >30 pack yr hx tobacco use an active smoker as per [place] preventive task force 4. Active infections mandibular and right toe with cellulitis 5. Malabsorption syndrome from gastric sleeve operation and PPI 6. macrocytosis HISTORY OF PRESENT ILLNESS: 54 y/o female with PMHx ITP diagnosed in 2011 when she presented with hemoptysis and flank discomfort. Details are scant. She is a sketchy historian but she describes being transferred first to [facility] and then to [facility], [place], ultimately being followed by Dr. Prakash. She was initially treated with high- dose steroids and IVIG, presumptively also with platelet transfusions. Then as an outpatient, she was on what she describes as multiple steroid tapers. Ultimately, in 2012 she underwent splenectomy. She continued to follow up with Dr. Prakash after that, still requiring steroid tapers. PNH also significant for HTN, hypothyroidism, presents for thrombocytopenia noted on routine outpatient labs with hematology - follows with Dr. Garrison. Her history is remarkable for splenectomy in 2013 Presents with active infections- dental abscess as well as right third toe cellulitis Only brief response to Iv IgG was still on prednisone 0.5mg/kg at time of drop of platelets to 3,000 symptomatic with extensive purpura PAST MEDICAL HISTORY: Hypertension, 20 - 30 pack-year smoking history started at age 17, the patient reports that most one half-pack per day currently smoking, hypothyroidism, gastroesophageal reflux disease (GERD), anxiety. PAST SURGICAL HISTORY: Appendectomy, gastric sleeve, REBECCA-BSO, right foot fracture. ALLERGIES: PENICILLIN. SOCIAL HISTORY: The patient is a . She has three daughters, one of them lives nearby. 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 Approximate 32 pack-year smoking history, current smoker 1/2ppd. Alcohol: Drinks on Fridays and Saturdays up to four drinks each night. Her primary care is Dr. Barrett at [facility]. FAMILY HISTORY: Negative for malignancy. HOME MEDICATIONS: Please see below. PAST MEDICAL HISTORY: 1. post splenectomy syndrome 2. abcess tooth 3. acute cellulitis 4. HTN 5. Hypothyroidism PAST SURGICAL HISTORY: 1. [Splenectomy].2012 2. [Appendectomy]. 3. [Gastric sleeve 4. Hysterectomy]. SOCIAL HISTORY: Tobacco use:[Denies] ETOH: [Denies] Illicit drug use: [Denies] FAMILY HISTORY: Reviewed - none pertinent ALLERGIES: Please see below. REVIEW OF SYSTEMS: CONSTITUTIONAL: [See HPI]. HEENT: [See HPI]. CARDIOVASCULAR: [See HPI]. RESPIRATORY: [See HPI]. GASTROINTESTINAL: [See HPI]. GENITOURINARY: [See HPI]. SKIN: [See HPI]. MUSCULOSKELETAL: [Denies acute joint/back pain]. NEUROLOGICAL: [Denies syncope, paresthesias]. ENDOCRINE: [Denies hx of DM]. HEMATO ASSESSMENT/PLAN: 1. Refractory ITP s/p splenectomy with only brief response to IV IgG and steroids. Started c-myc agonist recently. Excellent candidate for rituximab 2. Chronic leukocytosis from TOB use and steroids 3. Due for annual LDCT chest given >30 pack yr hx tobacco use an active smoker as per [place] preventive task force 4. Active infections mandibular and right toe with cellulitis 5. Malabsorption syndrome from gastric sleeve operation and PPI 6. macrocytosis PLAN/RECOMMENDATIONS s/p solumedrol 1gm x 1 Decadron 40mg daily x 4 days IV IgG 1gm/kg no further platelet transfusion required or indicated May d/c when platelet count > 30 may start promacta rituximab as out patient appreciate podiatry consult Dr. Garrison to resume care on Saturday Agree with current antibiotic choice. Avoid sulfa meds as they cause a fair amount of myelosuppression. Regarding macrocytosis-would check B12, methylmalonic acid, homocysteine, folate levels. Would also serially follow iron panel. Vital Signs/I&O Vital Signs Date Time Temp Pulse Resp B/P (MAP) Pulse Ox O2 Delivery O2 Flow Rate FiO2 09/03/20 12:24 97.1 73 18 137/82 (100) 97 09/03/20 11:55 Room Air I&O- Last 24 Hours up to 6 AM 09/03/20 06:00 Intake Total 276 ml Balance 276 ml Laboratory Data Labs 24H Laboratory Tests 2 09/02/20 20:33: Immature Granulocyte % (Auto) , Neutrophils (%) (Auto) , Reticulocyte # (auto) 199.3H, Nucleated Red Blood Cells % (auto) 0.2H, Neutrophils 83H, Lymphocytes (Manual) 9L, Monocytes (Manual) 5, Eosinophils (Manual) 1, Atypical Lymphocytes 2, Macrocytosis 1+, Platelet Estimate MARKED DECREASE, Differential Slide Review Report, Peripheral Blood Smear Path Consult PERIPHERAL SMEAR, Percent Reticulocyte Count 5.1H, Reticulocyte Hemoglobin Equivalent 41.1H, Anion Gap 6L, Glomerular Filtration Rate > 60.0, Calcium Level 8.2L, Coronavirus (COVID- 19)(PCR) NEGATIVE, Influenza Type A (RT-PCR) NEGATIVE, Influenza Type B (RT-PCR) NEGATIVE, Respiratory Syncytial Virus (PCR) NEGATIVE 09/03/20 07:44: Immature Granulocyte % (Auto) , Neutrophils (%) (Auto) , Nucleated Red Blood Cells % (auto) 0.2H, Neutrophils 92H, Lymphocytes (Manual) 3L, Monocytes (Ma nual) 1, Macrocytosis 2+, Platelet Estimate MARKED DECREASE, Anion Gap 10, Glomerular Filtration Rate > 60.0, Calcium Level 8.3L, Band Neutrophils 2, Metamyelocytes 1H, Myelocytes 1H, Shaikh-Dennard Bodies 1+, Magnesium Level 2.0, Total Bilirubin 0.8, Aspartate Amino Transf (AST/SGOT) 20, Alanine Hensley otransferase (ALT/SGPT) 55, Alkaline Phosphatase 96, Total Protein 6.2L, Albumin 2.4L, Albumin/Globulin Ratio 0.6L CBC/BMP Laboratory Tests 09/02/20 20:33 09/03/20 07:44 Microbiology Microbiology 09/03/20 Gram Stain - Final, Resulted 09/03/20 Wound Culture, Resulted Pending Allergies Coded Allergies: Penicillins (Verified Allergy, Intermediate, hives/difficulty breathing, 05/07/19) Home Medications Scheduled Biotin (Biotin) 1 Mg Capsule, 1 MG PO QHS, (Reported) Buspirone HCl (Buspirone HCl) 5 Mg Tablet, 5 MG PO DAILY, (Reported) Citalopram Hydrobromide (Citalopram HBr) 20 Mg Tab, 20 MG PO DAILY, (Reported) Eltrombopag Olamine (Promacta) 50 Mg Tablet, 50 MG PO DAILY for 30 Days, #30 Estradiol (Estradiol) 1 Mg Tab, 1 MG PO DAILY, (Reported) Levothyroxine Sodium (Levo-T) 137 Mcg Tab, 137 MCG PO DAILY, (Reported) Lisinopril (Lisinopril) 10 Mg Tablet, 10 MG PO DAILY, (Reported) Pantoprazole Sodium (Pantoprazole Sodium) 20 Mg Tab, 20 MG PO DAILY, (Reported) Prednisone (Prednisone) 5 Mg Tablet, 40 MG PO DAILY, (Reported) pt states doc is decreasing by 10mg every 7 days,is to take 30mg starting 09/03 x 7 days Spironolactone (Spironolactone) 25 Mg Tablet, 25 MG PO BID, (Reported) Torsemide (Torsemide) 5 Mg Tablet, 20 MG PO QAM, (Reported) Torsemide (Torsemide) 5 Mg Tablet, 10 MG PO QPM, (Reported) dilTIAZem HCl (Tiazac) 120 Mg Cap.sa.24h, 120 MG PO DAILY, (Reported) SUHA WRAY MD Sep 03, 2020 15:15
[2020-09-03 16:00] VITALS: BP 163/79
[2020-09-03] MEDS ORDERED: TORSEMIDE 10 MG TABLET PO SCH (17:00)
[2020-09-03 19:18] VITALS: BP 141/88
[2020-09-04] VITALS: BP 131/93
[2020-09-04 04:00] VITALS: BP 168/81
[2020-09-04] MEDS: SLF 3 ML SYR IV SCH ×2 (05:44→13:14)
[2020-09-04] MEDS: LEVOTHYROXINE 137MCG TABLET (0.137MG) PO SCH (05:44)
[2020-09-04] MEDS: CLINDAMYCIN 600 MG in IV 1 EA IV SCH ×2 (05:44→12:03)
[2020-09-04 06:18] LABS: BASO # 0.1 10^3/uL (0.0-0.2); BASO % 0.6 % (0.0-1.0); HEMATOCRIT 35.8 % (36.0-47.0); HEMOGLOBIN 12.5 g/dl (12.0-15.5); LYMPH # 1.1 10^3/uL (1.5-5.0); LYMPH % 5.2 % (24.0-44.0); MEAN CORPUSCULAR HEMOGLOBIN 36.9 pg (27.0-33.0); MEAN CORPUSCULAR HGB CONC 34.9 g/dl (32.0-36.5); MEAN CORPUSCULAR VOLUME 105.6 fl (80.0-96.0); NEUTROPHILS # 17.4 10^3/uL (1.5-8.5); NEUTROPHILS % 84.3 % (36.0-66.0); RED BLOOD COUNT 3.39 10^6/uL (4.00-5.40); WHITE BLOOD COUNT 20.7 10^3/uL (4.0-10.0)
[2020-09-04 06:20] LABS: PLATELET COUNT, AUTOMATED 42 10^3/uL (150-450)
[2020-09-04 06:40] LABS: ALBUMIN 2.3 GM/DL (3.2-5.2); ALT/SGPT 47 U/L (12-78); BILIRUBIN,TOTAL 0.4 MG/DL (0.2-1.0); BLOOD UREA NITROGEN 12 MG/DL (7-18); CALCIUM LEVEL 8.5 MG/DL (8.5-10.1); CARBON DIOXIDE LEVEL 27 MEQ/L (21-32); CHLORIDE LEVEL 101 MEQ/L (98-107); GLOMERULAR FILTRATION RATE > 60.0 (>51); GLUCOSE, FASTING 106 MG/DL (70-100); POTASSIUM SERUM 3.4 MEQ/L (3.5-5.1); SODIUM LEVEL 135 MEQ/L (136-145); TOTAL PROTEIN 7.4 GM/DL (6.4-8.2)
[2020-09-04 07:53] VITALS: BP 130/78
--- NOTE | 2020-09-04 08:15 | IPNPDOC ---
Date Seen The patient was seen on 09/04/20. Progress Note HEMATOLOGY PROBLEM LIST 1. Refractory ITP s/p splenectomy with only brief response to IV IgG and steroids. Started c-myc agonist recently. Excellent candidate for rituximab 2. Chronic leukocytosis from TOB use and steroids 3. Due for annual LDCT chest given >30 pack yr hx tobacco use an active smoker as per [place] preventive task force 4. Active infections mandibular and right toe with cellulitis 5. Malabsorption syndrome from gastric sleeve operation and PPI 6. macrocytosis INTERVAL HISTORY nice response to therapy platelet count 42,000 when ready for discharge, may send out on prednisone 60mg a day can continue promacta continue to treat active infections rituximab candidate as outpatient pending clinical milieu Dr. Garrison to take over care beginning 09/05 vitamin storage assessment as listed in initial consult can be done as inpatient or out patient requires low-dose CT chest please call with questions VS, I&O, 24H, Fishbone Vital Signs/I&O Vital Signs Date Time Temp Pulse Resp B/P (MAP) Pulse Ox O2 Delivery O2 Flow Rate FiO2 09/04/20 07:53 97.8 64 18 130/78 (95) 98 Room Air I&O- Last 24 Hours up to 6 AM 09/04/20 05:59 Intake Total 1080 ml Balance 1080 ml Laboratory Data 24H LABS Laboratory Tests 2 09/04/20 05:36: Immature Granulocyte % (Auto) 4.9H, Neutrophils (%) (Auto) 84.3H, Lymphocytes (%) (Auto) 5.2L, Monocytes (%) (Auto) 5.0, Eosinophils (%) (Auto) 0.0, Basophils (%) (Auto) 0.6, Neutrophils # (Auto) 17.4H, Lymphocytes # (Auto) 1.1L, Monocytes # (Auto) 1.0H, Eosinophils # (Auto) 0.0, Basophils # (Auto) 0.1, Nucleated Red Blood Cells % (auto) 0.2H, Immature Platelet Fraction 22.0H, Anion Gap 7L, Glomerular Filtration Rate > 60.0, Calcium Level 8.5, Total Bilirubin 0.4, Aspartate Amino Transf (AST/SGOT) 15, Alanine Aminotransferase (ALT/SGPT) 47, Alkaline Phosphatase 87, Total Protein 7.4, Albumin 2.3L, Albumin/Globulin Ratio 0.5L CBC/BMP Laboratory Tests 09/04/20 05:36 Microbiology Microbiology 09/03/20 Gram Stain - Final, Resulted 09/03/20 Wound Culture - Preliminary, Resulted Staphylococcus Aureus SUHA WRAY MD Sep 04, 2020 08:10
[2020-09-04] MEDS: dexameTHASONE 20MG/5ML VIAL (J1100 PER 1MG) IV SCH (08:29)
[2020-09-04] MEDS: LevoFLOXacin IV 750 MG in IV 1 EA IV SCH (08:29)
[2020-09-04] MEDS: estradioL 1 MG TAB PO SCH (08:29)
[2020-09-04 08:30] VITALS: BP 130/78
[2020-09-04] MEDS: PANTOPRAZOLE 20 MG TAB PO SCH (08:30)
[2020-09-04] MEDS: TORSEMIDE 20 MG TAB PO SCH (08:30)
[2020-09-04] MEDS: CitaloPRAM (CeleXA) 20 MG TAB PO SCH (08:30)
[2020-09-04] MEDS: SPIRONOLACTONE 25 MG TAB PO SCH (08:30)
[2020-09-04] MEDS: busPIRone 5 MG TAB PO SCH (08:30)
[2020-09-04] MEDS ORDERED: ISOVUE-370 76% 100ML VIAL As Ordered ONE (09:25)
--- NOTE | 2020-09-04 10:16 | REP ---
INDICATION: mandibular swelling COMPARISON: None. TECHNIQUE: Axial contrast-enhanced images from the skull base to the thoracic inlet with coronal and sagittal reformations using 100 cc Isovue 370 intravenous contrast material. This CT examination was performed using the following dose reduction techniques: Automated exposure control, adjustment of mA and/or kv according to the patient's size, and use of iterative reconstruction technique. FINDINGS: Soft tissue swelling/phlegmon overlies the right mandible measuring roughly 3.5 x 1.1 x 1.1 cm without discrete central fluid collection to suggest drainable abscess. The underlying mandible is intact and without osseous involvement. No significant associated cervical adenopathy is identified. Remainder of the examination is normal. Airways patent. Nasopharynx through hypopharynx and visualized thoracic inlet unremarkable. Sinuses are clear. Orbits are symmetric and normal. IMPRESSION: Phlegmonous collection overlying the right mandible without further acute pathology. <Electronically signed by Juventino Cai > 09/04/20 [id number]
--- NOTE | 2020-09-04 10:28 | REP ---
INDICATION: interim eval , cough, smoker COMPARISON: None TECHNIQUE: Axial contrast enhanced images from the thoracic inlet to the upper abdomen with coronal and sagittal reformations using 75 ml Isovue 370 intravenous contrast material. This CT examination was performed using the following dose reduction techniques: Automated exposure control, adjustment of mA and/or kv according to the patient's size, and use of iterative reconstruction technique. FINDINGS: Lung abreu are well aerated very subtle patchy small opacities in the left upper lobe may represent early pneumonia and should be correlated with auscultation and physical examination. No further consolidation, suspicious nodule or mass. No effusion. No pneumothorax. Tracheobronchial tree is patent. No significant adenopathy. Mediastinum demonstrates relatively normal thoracic aorta, pulmonary vasculature, and heart/pericardium. Moderate atherosclerotic changes to the coronary arteries along with minimal atherosclerotic changes to the thoracic aorta identified. Musculoskeletal structures are intact. Thyroid gland appears normal. Upper abdomen demonstrates normal bilateral adrenal glands and mild fatty infiltration to the liver. IMPRESSION: Very small patchy opacities in the left upper lobe may represent early pneumonia and correlation is recommended. <Electronically signed by Juventino Cai > 09/04/20 [id number]
[2020-09-04 11:24] VITALS: BP 143/83
[2020-09-04] MEDS ORDERED: ACID1TAB PO (12:29)
[2020-09-04] MEDS ORDERED: PRED10PA2 PO (12:29)
[2020-09-04] MEDS ORDERED: LEVO750T13 PO (12:29)
[2020-09-04] MEDS ORDERED: CLEO300C2 PO (12:29)
--- NOTE | 2020-09-04 13:28 | REP ---
INDICATION: eval right mandibular swelling. COMPARISON: None. TECHNIQUE: Single Panorex view FINDINGS: Dentition is relatively nonspecific. Mandible appears intact and without obvious abnormality. IMPRESSION: Mandible is grossly normal in appearance. <Electronically signed by Juventino Cai > 09/04/20 [id number]
== END 2020-09-04 15:07 | disposition home or self-care (01) | DRG 803 ==
LOC: M ED 18:09 → M ED INP 18:10 → EEVIPCON 18:10 → ENRESERV 09-03 10:54 → M PCU 09-03 12:35
PROVIDERS: ADMIT Internal Medicine; ATTEND Internal Medicine
PROC: 0JBQ0ZZ Excision of Right Foot Subcutaneous Tissue and Fascia, Open Approach (ICD-10-PCS; principal; 2020-09-03)
DX: D69.3 Immune thrombocytopenic purpura (principal); K91.2 Postsurgical malabsorption, not elsewhere classified; E03.9 Hypothyroidism, unspecified; I10 Essential (primary) hypertension; Z90.81 Acquired absence of spleen; K21.9 Gastro-esophageal reflux disease without esophagitis; F41.9 Anxiety disorder, unspecified; F32.9 Major depressive disorder, single episode, unspecified; Z79.899 Other long term (current) drug therapy; Z88.0 Allergy status to penicillin; L03.031 Cellulitis of right toe; M20.41 Other hammer toe(s) (acquired), right foot; M27.2 Inflammatory conditions of jaws; F17.200 Nicotine dependence, unspecified, uncomplicated; D72.829 Elevated white blood cell count, unspecified

== ENCOUNTER 2020-10-15 15:28 | Inpatient (IN) | payer OTHER ==
[~2020-10-15] VITALS: Ht 170.2 cm; Wt 74.1 kg
[~2020-10-15 15:28] MED LIST changes: +ACID1TAB PO; +CLEO300C2 PO; +PRED10PA2 PO; +PRED5TA PO; +PROC5TAB57 PO
[2020-10-15 16:43] LABS: HEMATOCRIT 36.5 % (36.0-47.0); HEMOGLOBIN 12.7 g/dl (12.0-15.5); MEAN CORPUSCULAR HEMOGLOBIN 37.8 pg (27.0-33.0); MEAN CORPUSCULAR HGB CONC 34.8 g/dl (32.0-36.5); MEAN CORPUSCULAR VOLUME 108.6 fl (80.0-96.0); RED BLOOD COUNT 3.36 10^6/uL (4.00-5.40)
[2020-10-15 16:54] LABS: INR 0.98; PROTHROMBIN TIME 13.3 SECONDS (12.7-14.5)
[2020-10-15 16:55] LABS: PARTIAL THROMBOPLASTIN TIME 35.8 SECONDS (25.9-37.0)
[2020-10-15 17:00] LABS: ALBUMIN 2.2 GM/DL (3.2-5.2); ALT/SGPT 41 U/L (12-78); BILIRUBIN,DIRECT 0.1 MG/DL (0.0-0.2); BILIRUBIN,TOTAL 0.5 MG/DL (0.2-1.0); BLOOD UREA NITROGEN 18 MG/DL (7-18); CALCIUM LEVEL 7.8 MG/DL (8.5-10.1); CARBON DIOXIDE LEVEL 23 MEQ/L (21-32); CHLORIDE LEVEL 108 MEQ/L (98-107); CREATININE FOR GFR 0.72 MG/DL (0.55-1.30); GLOMERULAR FILTRATION RATE > 60.0 (>51); GLUCOSE, FASTING 142 MG/DL (70-100); POTASSIUM SERUM 3.8 MEQ/L (3.5-5.1); SODIUM LEVEL 137 MEQ/L (136-145); TOTAL PROTEIN 5.7 GM/DL (6.4-8.2)
--- NOTE | 2020-10-15 17:02 | REP ---
INDICATION: cough COMPARISON: 08/09/2020 TECHNIQUE: Portable AP view of the chest FINDINGS: The mediastinum and cardiac silhouette are stable and within normal limits for portable technique. The lung abreu are clear without acute consolidation, effusion, or pneumothorax. Skeletal structures are intact. IMPRESSION: No acute cardiopulmonary process appreciated. <Electronically signed by Juventino Cai > 10/15/20 [id number]
[2020-10-15 17:16] LABS: PLATELET COUNT, AUTOMATED 15 10^3/uL (150-450); WHITE BLOOD COUNT 42.8 10^3/uL (4.0-10.0)
[2020-10-15 17:21] LABS: ANISOCYTOSIS 1+; ATYPICAL LYMPH 1 % (0-5); LYMPHOCYTES 4 % (16-44); METAMYELOCYTES 1 % (0-0); MONOCYTES 1 % (0-5); NEUTROPHILS 80 % (28-66); OVALOCYTES 1+; POIKILOCYTOSIS 1+
[2020-10-15 17:22] LABS: PLATELET ESTIMATE MARKED DECREASE (NORMAL)
[2020-10-15 17:28] LABS: ERYTHROCYTE SEDIMENTATION RATE 64 mm/hr (0-30)
[2020-10-15] MEDS ORDERED: MOM 30ML SUSPENSION UDC PO PRN (18:25)
[2020-10-15] MEDS ORDERED: ACETAMINOPHEN TAB 650MG DOSE (2X325MG) PO PRN (18:25)
[2020-10-15] MEDS ORDERED: MAALOX 30 ML SUSP *UDC PO PRN (18:25)
[2020-10-15] MEDS ORDERED: PRED5TA PO (18:30)
[2020-10-15] MEDS ORDERED: HOME MED LIST COMPLETE! XX SCH (18:30)
[2020-10-15] MEDS ORDERED: PROC5TAB57 PO (18:30)
[2020-10-15] MEDS ORDERED: CLIN300C6 PO (18:30)
--- NOTE | 2020-10-15 18:48 | HPEPDOC ---
[facility] Medical History & Physical Date of Admission Oct 15, 2020 Date of Service: Oct 15, 2020 Other Provider PCP: Proctorneeru meade Foot Piece Assembler: Dr. Garrison Attending Physician: LLOYD CACERES DO History and Physical CHIEF COMPLAINT: Recurrent bout of acute idiopathic thrombocytopenic purpura HISTORY OF PRESENT ILLNESS: 54-year-old female with a history of multiple prior events of acute idiopathic thrombocytopenic purpura presents to the ED for further evaluation and treatment. She reports that she was in her usual state of health last 10/06/2020 when she was seen and evaluated by her diver pumper for evaluation of an open wound on the second toe of her right foot. Apparently the wound on this toe is chronic, and she had come to the determination that she would like to have the toe amputated, she was hoping to have it scheduled for amputation in the next few weeks pending improvement of of her platelets. Then, on the following day she began to develop subjective fevers (she did not measure her temperature) and then over the next few days she developed chills, rigors, and then just over the past 1-2 days she began to develop purpura on her bilateral forearms, and to a lesser degree on the insole of her left foot. When the purpura began to progress she knew that she needed to come to the emergency department for further evaluation and IV treatment. She does typically follow with her tape folding machine operator Dr. Garrison who is quite familiar with her case. Upon arrival to the emergency department she had a significantly elevated WBC of 42.8, and her platelets are quite low at 15 (however they have been as low as 1-4 in the past). With a normal hemoglobin of 12.7. She does have an elevated sed rate and CRP, the remainder of her labs are fairly unrem arkable. She did have a chest x-ray performed in the ED which is also unremarkable. She is not actively bleeding at this time. CODE STATUS: Full code PAST MEDICAL HISTORY: Multiple recurrent bouts of immune/idiopathic thrombocytopenic purpura status post splenectomy Hypertension Hypothyroidism PAST SURGICAL HISTORY: Splenectomy Appendectomy Gastric sleeve Hysterectomy SOCIAL HISTORY: She is a smoker. Denies alcohol or illicit drug use. FAMILY HISTORY: Not pertinent REVIEW OF SYSTEMS: Constitutional: Patient admits to fevers, chills, without night sweats, recent weight gain/loss. HEENT: Patient denies blurred or double vision, transient visual disturbances, postnasal drip, epistaxis, sore throat, difficulty chewing or swallowing food. Cardiovascular: Patient denies chest discomfort/pain, palpitations, exertional dyspnea, orthopnea, edema of the extremities, claudication. Respiratory: Patient denies dyspnea, hemoptysis, sputum production. She does have chronic smoker's cough and mild chronic wheeze. Gastrointestinal: Patient denies nausea, vomiting, diarrhea, constipation, ab dominal pain, melena, hematochezia, hematemesis, jaundice. PHYSICAL EXAMINATION: General: Awake, alert, oriented x3. She is in no acute distress. HEENT: Head normocephalic atraumatic, conjunctiva are pink, sclera are nonicteric, buccal mucosa is pink and moist with no lesions in the oropharynx. Hearing is grossly intact to conversation. Respiratory: She does have a minor wheeze noted Cardiovascular: Regular rate and rhythm, with no rubs, gallops, or murmur. Abdomen: Soft, nontender, nondistended, no hepatosplenomegaly appreciated. Bowel sounds present. Extremities: Significant petechiae affecting the bilateral forearms, it is not palpable. She also does have to a lesser degree some mild pinkish petechiae on the instep of her left foot. She does have multiple sores on the tips of her se cond toes bilaterally, and to the right third toe. She has a wound on the lateral aspect of the second toe with some slough/biofilm in the wound. IMAGING: Chest x-ray in the ED was unremarkable ASSESSMENT/PLAN: ITP -ED provider discussed the plan with her oncologist. She has gone through this many times, and typically will remain in the hospital at a minimum 2 days. Will treat with Solu-Medrol 60 mg IV every 8 hours, and IVIG 1 g/kilogram. Consult to Dr. Garrison oncology has been requested. Thrombocytopenia -She is not actively bleeding, therefore administration of platelets is not indicated at this time Fever, chills Leukocytosis Elevated CRP Elevated sed rate Suspected infection of right second toe -Infection has precipitated ITP in this patient in the past and. Given that she did have fever and chills, elevated white count, elevated CRP, elevated sed rate, infection is once again suspected as the cause. Nevertheless, at this time she does not have a clear-cut source. The most likely source is the open wound on her right second toe. Penicillins would certainly be the first choice, but she is allergic to these. Bactrim is known to cause precipitation of ITP. Therefore, will treat empirically with vancomycin at this time. DVT prophylaxis -Contraindicated secondary to thrombocytopenia Vital Signs Vital Signs Date Time Temp Pulse Resp B/P (MAP) Pulse Ox O2 Delivery O2 Flow Rate FiO2 10/15/20 16:31 Room Air 10/15/20 15:29 96.9 88 17 137/81 (99) 97 Laboratory Data Labs 24H Laboratory Tests 2 10/15/20 15:50: Immature Granulocyte % (Auto) , Neutrophils (%) (Auto) , Nucleated Red Blood Cells % (auto) 1.1H, Neutrophils 80H, Band Neutrophils 13H, Lymphocytes (Manual) 4L, Monocytes (Manual) 1, Metamyelocytes 1H, Atypical Lymphocytes 1, Poikilocytosis 1+, Anisocytosis 1+, Macrocytosis 2+, Ovalocytes 1+, Platelet Estimate MARKED DECREASE, Immature Platelet Fraction 30.1H, Erythrocyte Sedimentation Rate 64H, Prothrombin Time 13.3, Prothromb Time International Ratio 0.98, Activated Partial Thromboplast Time 35.8, Anion Gap 6L, Glomerular Filtration Rate > 60.0, Lactic Acid Level 1.2, Calcium Level 7.8L, Total Bilirubin 0.5, Direct Bilirubin 0.1, Aspartate Amino Transf (AST/SGOT) 27, Alanine Aminotransferase (ALT/SGPT) 41, Alkaline Phosphatase 156H, C-Reactive Protein, Quantitative 26.60H, Total Protein 5.7L, Albumin 2.2L, Albumin/Globulin Ratio 0.6L 10/15/20 18:16: CBC/BMP Laboratory Tests 10/15/20 15:50 Microbiology Microbiology 10/15/20 Blood Culture, Received Pending 10/15/20 Blood Culture, Received Pending Home Medications Scheduled Biotin (Biotin) 1 Mg Capsule, 1 MG PO QHS Buspirone HCl (Buspirone HCl) 5 Mg Tablet, 5 MG PO DAILY Citalopram Hydrobromide (Citalopram HBr) 20 Mg Tab, 20 MG PO DAILY Clindamycin HCl (Clindamycin HCl) 300 Mg Capsule, 300 MG PO TID Eltrombopag Olamine (Promacta) 50 Mg Tablet, 50 MG PO DAILY Estradiol (Estradiol) 1 Mg Tab, 1 MG PO DAILY Levothyroxine Sodium (Levo-T) 137 Mcg Tab, 137 MCG PO DAILY Pantoprazole Sodium (Pantoprazole Sodium) 20 Mg Tab, 20 MG PO DAILY Prednisone (Prednisone) 5 Mg Tablet, 40 MG PO DAILY Spironolactone (Spironolactone) 25 Mg Tablet, 25 MG PO BID Torsemide (Torsemide) 5 Mg Tablet, 20 MG PO QAM Torsemide (Torsemide) 5 Mg Tablet, 10 MG PO QPM dilTIAZem HCl (Tiazac) 120 Mg Cap.sa.24h, 120 MG PO DAILY Scheduled PRN Prochlorperazine (Prochlorperazine Maleate) 5 Mg Tablet, 5 MG PO QID PRN for NAUSEA OR VOMITING Allergies Coded Allergies: Penicillins (Verified Allergy, Intermediate, hives/difficulty breathing, 10/10/20) A-FIB/CHADSVASC A-FIB History Current/History of A-Fib/PAF?: No LLOYD CACERES DO Oct 15, 2020 18:48
[2020-10-15 19:08] LABS: RSV AMPLIFICATION NEGATIVE (NEGATIVE)
[2020-10-15] MEDS: methylPREDNISolone 125MG 2ML VIAL IV SCH (23:37)
[2020-10-16] VITALS (17 sets, daily range): BP systolic 118–154; BP diastolic 60–92
[2020-10-16] MEDS: IMMUNE GLOBULIN 10% 10 GM in IV 1 EA IV SCH (00:16)
[2020-10-16] MEDS: IMMUNE GLOBULIN 10% 20 GM in IV 1 EA IV SCH (01:58)
[2020-10-16] MEDS: IMMUNE GLOBULIN 10% 40 GM in IV 1 EA IV SCH (04:18)
[2020-10-16 06:50] LABS: HEMATOCRIT 33.8 % (36.0-47.0); HEMOGLOBIN 11.5 g/dl (12.0-15.5); MEAN CORPUSCULAR HEMOGLOBIN 36.9 pg (27.0-33.0); MEAN CORPUSCULAR VOLUME 108.3 fl (80.0-96.0); RED BLOOD COUNT 3.12 10^6/uL (4.00-5.40)
[2020-10-16 06:53] LABS: PLATELET COUNT, AUTOMATED 11 10^3/uL (150-450); WHITE BLOOD COUNT 35.4 10^3/uL (4.0-10.0)
[2020-10-16 07:07] LABS: BLOOD UREA NITROGEN 17 MG/DL (7-18); CARBON DIOXIDE LEVEL 22 MEQ/L (21-32); CHLORIDE LEVEL 109 MEQ/L (98-107); CREATININE FOR GFR 0.56 MG/DL (0.55-1.30); GLOMERULAR FILTRATION RATE > 60.0 (>51); GLUCOSE, FASTING 96 MG/DL (70-100); POTASSIUM SERUM 3.8 MEQ/L (3.5-5.1); SODIUM LEVEL 138 MEQ/L (136-145)
[2020-10-16] MEDS: methylPREDNISolone 125MG 2ML VIAL IV SCH ×3 (07:56→23:28)
[2020-10-16] MEDS ORDERED: PROCHLORPERAZINE 5 MG TAB (S0183) PO PRN (08:25)
[2020-10-16] MEDS: CitaloPRAM (CeleXA) 20 MG TAB PO SCH (10:37)
[2020-10-16] MEDS: PANTOPRAZOLE 20 MG TAB PO SCH (10:37)
[2020-10-16] MEDS: busPIRone 5 MG TAB PO SCH (10:37)
[2020-10-16] MEDS: estradioL 1 MG TAB PO SCH (10:38)
[2020-10-16] MEDS: LevoFLOXacin IV 750 MG in IV 1 EA IV SCH (10:38)
[2020-10-16] MEDS: TORSEMIDE 20 MG TAB PO SCH (10:39)
[2020-10-16] MEDS: SPIRONOLACTONE 25 MG TAB PO SCH ×2 (10:39→20:23)
[2020-10-16] MEDS: LEVOTHYROXINE 137MCG TABLET (0.137MG) PO SCH (10:45)
[2020-10-16] MEDS ORDERED: TORSEMIDE 10 MG TABLET PO SCH (17:00)
--- NOTE | 2020-10-16 20:28 | IPNPDOC ---
Text Note Date of Service The patient was seen on 10/16/20. NOTE Hospitalist Progress Note Subjective: She reports that she did have some fevers and chills last night. Although she was not complaining of any dysuria or frequency, she failed to mention to me last night that she did notice some hematuria, but she mentioned to the night team who ordered a UA, which is certainly indicative of UTI. Additionally, her blood culture preliminary shows gram-negative rods. Since she was empirically started on vancomycin this would not be effective at all for gram-negative rods which would certainly explain her symptomatology last night. I will discontinue her vancomycin at this time and switch her over to IV Levaquin. Additionally, it appears that many of the orders entered last night somehow are not in [employer], and as a matter fact now that I am reviewing the computer, it appears that there is no order for vancomycin in here either. Therefore I will reorder all of her home medications as well at this time, and new order for Levaquin is put in at this time. Despite having a rough night, the patient reports that she is actually feeling a little bit better today. She denies any fever or chills at this time. The remainder of her review of systems is negative. Objective: General: Awake, alert, oriented x3. She is in no acute distress. HEENT: Head normocephalic atraumatic, conjunctiva are pink, sclera are nonicteric, buccal mucosa is pink and moist with no lesions in the oropharynx. Hearing is grossly intact to conversation. Respiratory: Chronic wheeze noted, she is a smoker Cardiovascular: Regular rate and rhythm, with no rubs, gallops, or murmur. Abdomen: Soft, nontender, nondistended, no hepatosplenomegaly appreciated. Bowel sounds present. Extremities: Significant petechiae affecting the bilateral forearms. I did not evaluate her toe this morning. Assessment/Plan: ITP -Continue IVIG 1 g/kilogram for a total of 2 days -Continue Solu-Medrol 60 mg IV every 8 hours Fever, chills Leukocytosis Elevated CRP Elevated sed rate Now this is suspected to be secondary to UTI given gram negative kunal bacteremia and positive UA -Discontinue IV vancomycin -Start IV Levaquin Wound of right toe -Continue wound care with Vasche and daily bandage changes Thrombocytopenia -Slightly lower today, she is not actively bleeding VS,Holden, I+O VS, Fishbone, I+O Laboratory Tests 10/16/20 05:31 Vital Signs Date Time Temp Pulse Resp B/P (MAP) Pulse Ox O2 Delivery O2 Flow Rate FiO2 10/16/20 14:00 97.7 70 16 134/83 (100) 95 Room Air I&O- Last 24 Hours up to 6 AM 10/16/20 06:00 Intake Total 640 ml Output Total 850 ml Balance -210 ml LLOYD CACERES DO Oct 16, 2020 20:28
[2020-10-17] VITALS (21 sets, daily range): BP systolic 126–159; BP diastolic 67–118
[2020-10-17] MEDS: IMMUNE GLOBULIN 10% 40 GM in IV 1 EA IV SCH ×2
[2020-10-17] MEDS: IMMUNE GLOBULIN 10% 20 GM in IV 1 EA IV SCH ×2
[2020-10-17] MEDS: IMMUNE GLOBULIN 10% 10 GM in IV 1 EA IV SCH (00:24)
[2020-10-17 06:10] LABS: HEMATOCRIT 33.5 % (36.0-47.0); HEMOGLOBIN 11.5 g/dl (12.0-15.5); MEAN CORPUSCULAR HGB CONC 34.3 g/dl (32.0-36.5); MEAN CORPUSCULAR VOLUME 107.7 fl (80.0-96.0); RED BLOOD COUNT 3.11 10^6/uL (4.00-5.40)
[2020-10-17] MEDS: LEVOTHYROXINE 137MCG TABLET (0.137MG) PO SCH (06:42)
[2020-10-17 06:48] LABS: BLOOD UREA NITROGEN 26 MG/DL (7-18); CALCIUM LEVEL 8.4 MG/DL (8.5-10.1); CARBON DIOXIDE LEVEL 25 MEQ/L (21-32); CHLORIDE LEVEL 107 MEQ/L (98-107); GLOMERULAR FILTRATION RATE > 60.0 (>51); GLUCOSE, FASTING 132 MG/DL (70-100); POTASSIUM SERUM 3.5 MEQ/L (3.5-5.1); SODIUM LEVEL 139 MEQ/L (136-145)
[2020-10-17 06:54] LABS: PLATELET COUNT, AUTOMATED 44 10^3/uL (150-450); WHITE BLOOD COUNT 30.6 10^3/uL (4.0-10.0)
[2020-10-17] MEDS: CitaloPRAM (CeleXA) 20 MG TAB PO SCH (09:07)
[2020-10-17] MEDS: methylPREDNISolone 125MG 2ML VIAL IV SCH (09:07)
[2020-10-17] MEDS: SPIRONOLACTONE 25 MG TAB PO SCH (09:07)
[2020-10-17] MEDS: busPIRone 5 MG TAB PO SCH (09:07)
[2020-10-17] MEDS: TORSEMIDE 20 MG TAB PO SCH (09:07)
[2020-10-17] MEDS: estradioL 1 MG TAB PO SCH (09:08)
[2020-10-17] MEDS: PANTOPRAZOLE 20 MG TAB PO SCH (09:08)
[2020-10-17] MEDS: LevoFLOXacin IV 750 MG in IV 1 EA IV SCH (09:08)
[2020-10-17] MEDS ORDERED: LEVO750T13 PO (11:19)
[2020-10-17] MEDS ORDERED: PRED5TA PO (11:57)
--- NOTE | 2020-10-17 15:58 | DS.PDOC ---
Discharge Summary General Date of Admission Oct 15, 2020 at 18:23 Date of Discharge 10/17/20 Attending Physician: LLOYD CACERES DO Specialist/Consultants Involve: MIKE GARRISON MD Discharge Summary PROCEDURES PERFORMED DURING STAY: None. ADMITTING/DISCHARGE DIAGNOSES: ITP Cystitis Hypertension Hypothyroidism Right foot wound COMPLICATIONS/CHIEF COMPLAINT: Fever/chills HISTORY OF PRESENT ILLNESS/HOSPITAL COURSE: 54-year-old female with a history of multiple prior hospitalizations of acute idiopathic thrombocytopenic purpura presents to the ED for further evaluation and treatment. She reports that she was in her usual state of health last 10/06/2020 when she was seen and evaluated by her air conditioning manager for evaluation of an open wound on the second toe of her right foot. Apparently the wound on this toe is chronic, and she had come to the determination that she would like to have the toe amputated, she was hoping to have it scheduled for amputation in the next few weeks pending improvement of of her platelets. Then, on the following day she began to develop subjective fevers (she did not measure her temperature) and then over the next few days she developed chills, rigors, and then just over the past 1-2 days she began to develop purpura on her bilateral forearms, and to a lesser degree on the insole of her left foot. When the purpura began to progress she knew that she needed to come to the emergency department for further evaluation and IV treatment. She does typically follow with her ethnoarchaeologist Dr. Garrison who is quite familiar with her case. Upon arrival to the emergency department she had a significantly elevated WBC of 42.8, and her platelets are quite low at 15 (however they have been as low as 1-4 in the past). With a normal hemoglobin of 12.7. She does have an elevated sed rate and CRP, the remainder of her labs are fairly unremarkable. She did have a chest x-ray performed in the ED which is also unremarkable. She is not actively bleeding at this time. Hematology/oncology was consulted and recommended Solu-Medrol and IVIG treatment for at least 2 days. After receiving 2 days of Solu-Medrol and IVIG, her platelet levels uptrended to 44 which as per patient was normal for her. Urinalysis and blood cultures were obtained as she noticed some hematuria and her WBC were elevated which showed gram negative rods. Was then placed on IV levaquin. Labs afterwards showed WBC downtrending to 30.6. She was transitioned to oral Levaquin 750mg for the next 4 days for discharge. Patient should follow up with ethnoarchaeologist Dr. Garrison outpatient for further management of her ITP. DISCHARGE MEDICATIONS: Please see below. ALLERGIES: Please see below. PHYSICAL EXAMINATION ON DISCHARGE: VITAL SIGNS: Please see below. LABORATORY DATA: Please see below. IMAGIN10/15/20 Chest X-ray: No acute cardiopulmonary processes appreciated PROGNOSIS: fair ACTIVITY: As tolerated DIET: As tolerated DISCHARGE PLAN: Home DISPOSITION: Home, Self-Care. DISCHARGE INSTRUCTIONS: 1. Patient should follow up with ethnoarchaeologist Dr. Garrison outpatient for further management of her ITP within the next 7 days as scheduled. 2. Patient will follow up with podiatry for her right 2nd toe. 3. Patient will complete scheduled antibiotics. DISCHARGE CONDITION: [Stable]. TIME SPENT ON DISCHARGE: 33 minutes. Vital Signs/I&Os Vital Signs Date Time Temp Pulse Resp B/P (MAP) Pulse Ox O2 Delivery O2 Flow Rate FiO2 10/17/20 09:17 97.8 65 17 126/90 (102) 96 Room Air I&O- Last 24 Hours up to 6 AM 10/17/20 06:00 Intake Total 1660 ml Output Total 0 ml Balance 1660 ml Laboratory Data Labs 24H Laboratory Tests 2 10/17/20 05:43: Nucleated Red Blood Cells % (auto) 2.1H, Immature Platelet Fraction 23.2H, Anion Gap 7L, Glomerular Filtration Rate > 60.0, Calcium Level 8.4L CBC/BMP Laboratory Tests 10/17/20 05:43 Microbiology Microbiology 10/16/20 Urine Culture - Final, Complete 10/15/20 Blood Culture - Preliminary, Resulted 10/15/20 Blood Culture - Preliminary, Resulted Discharge Medications Scheduled Biotin (Biotin) 1 Mg Capsule, 1 MG PO QHS, (Reported) Buspirone HCl (Buspirone HCl) 5 Mg Tablet, 5 MG PO DAILY, (Reported) Citalopram Hydrobromide (Citalopram HBr) 20 Mg Tab, 20 MG PO DAILY, (Reported) Eltrombopag Olamine (Promacta) 50 Mg Tablet, 50 MG PO DAILY Estradiol (Estradiol) 1 Mg Tab, 1 MG PO DAILY, (Reported) Levofloxacin (Levofloxacin) 750 Mg Tablet, 1 TAB PO DAILY Levothyroxine Sodium (Levo-T) 137 Mcg Tab, 137 MCG PO DAILY, (Reported) Pantoprazole Sodium (Pantoprazole Sodium) 20 Mg Tab, 20 MG PO DAILY, (Reported) Prednisone (Prednisone) 5 Mg Tablet, 60 MG PO DAILY Spironolactone (Spironolactone) 25 Mg Tablet, 25 MG PO BID, (Reported) Torsemide (Torsemide) 5 Mg Tablet, 20 MG PO QAM, (Reported) Torsemide (Torsemide) 5 Mg Tablet, 10 MG PO QPM, (Reported) dilTIAZem HCl (Tiazac) 120 Mg Cap.sa.24h, 120 MG PO DAILY, (Reported) Scheduled PRN Prochlorperazine (Prochlorperazine Maleate) 5 Mg Tablet, 5 MG PO QID PRN for NAUSEA OR VOMITING, (Reported) Allergies Coded Allergies: Penicillins (Verified Allergy, Intermediate, hives/difficulty breathing, 10/10/20) GME ATTESTATION GME ATTESTATION My faculty preceptor for this patient encounter was physically present during the encounter and was fully available. All aspects of the patient interview, examination, medical decision making process, and medical care plan development were reviewed and approved by the faculty preceptor. The faculty preceptor is aware and concurs with the plan as stated in the body of this note and will attest to such by his/her cosignature. MARYSE SHIPLEY DO Oct 17, 2020 15:58 Beverly Del Rosario DO Oct 17, 2020 18:45
== END 2020-10-17 14:01 | disposition home or self-care (01) | DRG 813 ==
LOC: M ED 15:28 → M ED INP 18:23 → M MSPAV 21:55 → M ED INP 22:14 → M MSPAV 22:47
PROVIDERS: ADMIT Neuromusculoskeletal Medicine & OMM; ATTEND Neuromusculoskeletal Medicine & OMM
DX: D69.3 Immune thrombocytopenic purpura (principal); I10 Essential (primary) hypertension; E03.9 Hypothyroidism, unspecified; N30.90 Cystitis, unspecified without hematuria; Z79.899 Other long term (current) drug therapy; Z88.0 Allergy status to penicillin; L97.519 Non-pressure chronic ulcer of other part of right foot with unspecified severity

== ENCOUNTER 2020-10-26 09:58 | Day surgery (SDC) | payer OTHER ==
[~2020-10-26] VITALS: Ht 170.2 cm; Wt 72.6 kg
[~2020-10-26 09:58] MED LIST changes: +BUPIVACAINE HCL 0.5% 30 ML VIAL As Ordered ONE; +CEPH25SS PO; +CLIN300C6 PO; +CLINDAMYCIN 600 MG in IV 1 EA IV ONE; +LIDOCAINE 1% SDV 30ML VIAL As Ordered ONE; +LR 1,000 ML IV ONE; +PROM75TA2 PO; +dexameTHASONE 4 MG/ML 1ML VIAL (J1100 PER 1MG) As Ordered ONE
[2020-10-26] MEDS ORDERED: LIDOCAINE 2% 100MG/5ML SDV (FOR ANES.) As Ordered ONE (11:33)
[2020-10-26] MEDS ORDERED: MIDAZOLAM INJ 2MG/2ML VIAL (J2250 PER 1MG) As Ordered ONE (11:33)
[2020-10-26] MEDS ORDERED: fentaNYL 100 MCG/2 ML INJECTION (J3010) As Ordered ONE (11:33)
[2020-10-26] MEDS ORDERED: propofoL 200 MG/20 ML VIAL As Ordered ONE ×2 (11:33→12:32)
[2020-10-26] MEDS ORDERED: ACETAMINOPHEN 1000MG 100ML IV BTL (OFIRMEV) (J0131 PER 10MG) As Ordered ONE (12:30)
[2020-10-26] MEDS ORDERED: ACET1TAB16 PO (12:53)
--- NOTE | 2020-10-26 13:40 | RO ---
OPERATIVE NOTE DATE OF OPERATION: 10/26/2020 SURGEON: Casey Garner DPM BODY LINER: None. PREOPERATIVE DIAGNOSIS: Right second toe ulcer osteomyelitis. POSTOPERATIVE DIAGNOSIS: Right second toe ulcer osteomyelitis. PROCEDURE: Right second toe amputation. ANESTHESIA: Monitored anesthesia care. PREOPERATIVE INJECTION: 7 cc of a one-to-one mixture of 1% lidocaine plain and 0.5% Marcaine plain. ESTIMATED BLOOD LOSS: Minimal. MATERIALS: 3-0 nylon. INJECTABLES: None. SPECIMENS: Right second toe. COMPLICATIONS: None. CONDITION: Stable. OPERATIVE INDICATIONS: Meredith Laws is a 54-year-old female who had long-standing second toe deformity and ulceration. The initial plan was to correct her second hammer toe. The procedure was postponed, however, due to her ITP and critically low platelets, surgery was unable to be performed. During that time, she developed worsening ulceration and infection which now necessitates the amputation of the toe. The patient's side and site were identified and marked in the preoperative area. Consent was reviewed and obtained. The risks, complications, alternatives to the procedure to the patient in detail and all questions were answered. PROCEDURE: The patient was brought to the operating room and placed on the operating room table in the supine position. Monitored anesthesia care was delivered by the anesthesia team. Preoperative injection of 7 cc of a one-to-one mixture of 1% lidocaine plain and 0.5% Marcaine plain were injected to the right foot. The right foot was prepped and draped in normal sterile fashion. No tourniquet was used during the procedure. Using a #15 blade, the toe was disarticulated at the metatarsophalangeal joint. The site was irrigated with normal saline. The incision was closed using 3-0 nylon. Sterile dressings were applied. The patient was brought to the PACU with vital signs stable and neurovascular status intact. She will be weightbearing as tolerated and follow up in the office in two days.
[2020-10-26 13:56] VITALS: BP 120/75
[2020-11-01] MEDS ORDERED: CEPH500C PO (10:01)
== END 2020-10-26 14:01 | disposition home or self-care (01) ==
LOC: M SDC 09:58
PROVIDERS: ATTEND Podiatrist Foot & Ankle Surgery
DX: M86.171 Other acute osteomyelitis, right ankle and foot (principal); I10 Essential (primary) hypertension; E03.9 Hypothyroidism, unspecified; D69.3 Immune thrombocytopenic purpura; Z88.0 Allergy status to penicillin; K21.9 Gastro-esophageal reflux disease without esophagitis; F41.9 Anxiety disorder, unspecified; F32.9 Major depressive disorder, single episode, unspecified; Z79.52 Long term (current) use of systemic steroids; Z79.899 Other long term (current) drug therapy; F17.218 Nicotine dependence, cigarettes, with other nicotine-induced disorders
CPT/HCPCS: 28820; 88305; 88311; J0131; J2250; J3010

== ENCOUNTER 2020-12-10 16:16 | Inpatient (IN) | payer OTHER ==
[~2020-12-10] VITALS: Ht 170.2 cm; Wt 77.6 kg
[~2020-12-10 16:16] MED LIST changes: +ACET1TAB16 PO; -BUPIVACAINE HCL 0.5% 30 ML VIAL As Ordered ONE; +CEPH500C PO; +CLIN-250 PO; -CLIN300C6 PO; -CLINDAMYCIN 600 MG in IV 1 EA IV ONE; -IBUP200T45 PO; +IBUP200T46 PO; +K-TA1TAB PO; +LASI20TA3 PO; -LIDOCAINE 1% SDV 30ML VIAL As Ordered ONE; -LR 1,000 ML IV ONE; +NYST50SS PO; -dexameTHASONE 4 MG/ML 1ML VIAL (J1100 PER 1MG) As Ordered ONE
--- OUTSIDE RECORDS SUMMARY | 2020-12-10 16:23 | CCD | Continuity of Care Document ---
Author Meredith Razo DPIlia Organization Unknown Address 3 [facility], [address] [place] [address] Phone [phone] Care Team Providers Care Vocational Case Manager Name Role Phone Hitesh Stout, [facility] Unavailable Problems Active Problems Provider Date Hammer toe Casey Garner DPM Onset: 06/26/2020 Osteochondropathy Casey Garner DPM Onset: 06/26/2020 Callosity Casey Garner DPM Onset: 06/26/2020 Onychomycosis Casey Garner DPM Onset: 06/26/2020 Cellulitis of toe of right foot Casey Garner DPM Onset: 07/25/2020 Pain in limb Casey Garner DPM Onset: 07/25/2020 Social History Type Date Description Comments Sex Unknown ETOH Use Occasionally consumes alcohol Tobacco Use Start: Unknown Patient is a current smoker, smo kes every day 1/2 PPD x30 years Allergies and adverse reactions Active Allergies Criticality Reaction | Severity Comments Date Penicillins Unable to assess criticality 06/24/2020 Medications Active Medications SIG Qnty Indications Ordering Provide r Date Clindamycin HCL 300mg Capsules 1 tab by mouth three times a day 30caps Casey Garner DPM 07/2020 Diflucan 100mg Tablets 1 by mouth daily 14tabs Casey Garner DPM 09/09/2020 Ammonium Lactate 12% Cream apply to feet daily 140gm Casey Garner DPM 06/24/2020 Urea Nail 45% Gel apply to thick nail daily 28ml Casey Garner DPM 06/24/2020 Spironolactone 25mg Tablets Unknown Buspirone HCL 5mg Tablets Unknown Synthroid 137mcg Tablets Unknown Estradiol 1mg Tablets Unknown Pantoprazole Sodium 20mg Tablets DR Unknown Tiazac 120mg Caps ER 24HR Unknown Torsemide 5mg Tablets Unknown Celexa Unknown Immunizations Description No Information Available Vital Signs Date Vital Result Comment 08/26/2020 3:32pm Height 67 inches 5'7" Weight 155.00 lb BP Systolic 160 mmHg BP Diastolic 94 mmHg Heart Rate 85 /min BMI (Body Mass Index) 24.3 kg/m2 07/28/2020 2:29pm Height 67 inches 5'7" Weight 168.00 lb BP Systolic 110 mmHg BP Diastolic 74 mmHg Heart Rate 80 /min BMI (Body Mass Index) 26.3 kg/m2 Results Test Acquired Date Facility Test Result H/L Range Note Comprehensive Metabolic Profil 10/28/2020 [facility] Glucose, Fasting 96 mg/dL Normal 70-100 Blood Urea Nitrogen 18 mg/dL Normal 7-18 Creatinine For GFR 0.70 mg/dL Normal 0.55-1.30 Glomerular Filtration Rate > 60.0 Normal >51 1 Sodium Level 136 mEq/L Normal 136-145 Potassium Serum 5.7 mEq/L High 3.5-5.1 Chloride Level 104 mEq/L Normal 98-107 Carbon Dioxide Level 28 mEq/L Normal 21-32 Anion Gap 4 mEq/L Low 8-16 Calcium Level 8.9 mg/dL Normal 8.5-10.1 Ast/Sgot 26 U/L Normal 7-37 Alt/SGPT 32 U/L Normal 12-78 Alkaline Phosphatase 98 U/L Normal 45-117 Bilirubin,Total 0.4 mg/dL Normal 0.2-1.0 Total Protein 6.7 GM/DL Normal 6.4-8.2 Albumin 2.4 GM/DL Low 3.2-5.2 Albumin/Globulin Ratio 0.6 Low 1.2-2.2 Laboratory test finding 10/26/2020 [facility] Pathology Request For Service (SEE NOTE) 2 Comprehensive Metabolic Profil 10/24/2020 [facility] Glucose, Fasting 170 mg/dL High 70-100 Blood Urea Nitrogen 17 mg/dL Normal 7-18 Creatinine For GFR 0.85 mg/dL Normal 0.55-1.30 Glomerular Filtration Rate > 60.0 Normal >51 3 Sodium Level 136 mEq/L Normal 136-145 Potassium Serum 5.1 mEq/L Normal 3.5-5.1 Chloride Level 102 mEq/L Normal 98-107 Carbon Dioxide Level 27 mEq/L Normal 21-32 Anion Gap 7 mEq/L Low 8-16 Calcium Level 8.7 mg/dL Normal 8.5-10.1 Ast/Sgot 33 U/L Normal 7-37 Alt/SGPT 37 U/L Normal 12-78 Alkaline Phosphatase 131 U/L High 45-117 Bilirubin,Total 0.5 mg/dL Normal 0.2-1.0 Total Protein 7.6 GM/DL Normal 6.4-8.2 Albumin 2.5 GM/DL Low 3.2-5.2 Albumin/Globulin Ratio 0.5 Low 1.2-2.2 1 Units are mL/min/1.73 m2 Chronic Kidney Disease Staging per NKF: Stage I & II GFR >=60 Normal to Mildly Decreased Stage III GFR 30-59 Moderately Decreased Stage IV GFR 15-29 Severely Decreased Stage V GFR <15 Very Little GFR Left ESRD GFR <15 on GRADING MACHINE FEEDER 2 FINAL DIAGNOSIS Digit, right 2nd toe, amputation: Skin with ulcer and chronic inflammation, with reparative changes in underlying bone. No evidence for acute osteomyelitis. 10/28/2020 - 1228 CLINICAL DIAGNOSIS Acute osteomyelitis 10/27/2020 - 1305 GROSS DIAGNOSIS Received in formalin labeled "right second toe" and consists of a moore-white digit measuring 5.5 cm. from tip to proximal bone resection. An ulcerated skin surface measuring 0.9 x 0.3 cm. is noted on one aspect the toe. Braiding Operator section in one block after decalcification. -SVY 10/27/2020 - 1305 Signed ZARA SMITH MD 10/28/2020 1349 3 Units are mL/min/1.73 m2 Chronic Kidney Disease Staging per NKF: Stage I & II GFR >=60 Normal to Mildly Decreased Stage III GFR 30-59 Moderately Decreased Stage IV GFR 15-29 Severely Decreased Stage V GFR <15 Very Little GFR Left ESRD GFR <15 on GRADING MACHINE FEEDER Procedures Date Code Description Status 10/26/2020 85607 Amputation Toe MP JT Completed 10/12/2020 52092 Debridement Skin/Tissue Complete d 09/30/2020 53799 Debridement Skin/Tissue Complete d 09/16/2020 43471 Debridement Skin/Tissue Complete d 09/09/2020 13692 Office/Outpatient Established SF MDM 10-19 Min Completed 09/02/2020 21023 Hospital Subsequent Care Level 3 Completed 09/02/2020 61820 Debridement Skin/Tissue Complete d 08/26/2020 67364 Debridement Skin/Tissue Complete d 08/04/2020 80919 Debridement Of Wound 20 SQ CM Co mpleted 07/28/2020 23343 Office/Outpatient Established Lo w MDM 20-29 Min Completed 07/28/2020 80055 Debridement Skin/Tissue Complete d 07/21/2020 41312 Office/Outpatient Established Lo w MDM 20-29 Min Completed 07/21/2020 36641 Debridement Skin/Tissue Complete d 06/24/2020 04873 Office/Outpatient New Low MDM 30 -44 Minutes Completed Medical Devices Description No Information Available Encounters Type Date Location Provider Dx Diagnosis Office Visit 11/11/2020 11:00a [place] [facility] Casey Garner DPM Z48.89 Encounter for other specified surgical aftercare Office Visit 10/28/2020 1:00p [place] [facility] Casey Garner DPM Z48.89 Encounter for other specified surgical aftercare Office Visit 09/09/2020 1:30p [place] [facility] Casey Garner DPM L03.031 Cellulitis of right toe M79.674 Pain in right toe(s) Office Visit 07/28/2020 2:30p [place] [facility] Casey Garner DPM M20.41 Other hammer toe(s) (acquired), right foot M79.674 Pain in right toe(s) L89.893 Pressure ulcer of other site , stage 3 Office Visit 07/21/2020 2:30p [place] [facility] Casey Garner DPM L03.031 Cellulitis of right toe M79.674 Pain in right toe(s) L89.893 Pressure ulcer of other site , stage 3 Office Visit 06/24/2020 10:15a [place] [facility] Casey Garner DPM M20.40 Other hammer toe(s) (acquired), unspecified foot M84.879 Other disorders of continuit y of bone, unsp ankle and foot L84 Corns and callosities B35.1 Tinea unguium Assessments Date Code Description Provider 11/11/2020 Z48.89 Encounter for other specified adair rgical aftercare Casey Garner, DP 10/28/2020 Z48.89 Encounter for other specified adair rgical aftercare Casey Garner, DP 10/26/2020 M86.171 Other acute osteomyelitis, right ankle and foot Casey Garner, DP 10/26/2020 M20.40 Other hammer toe(s) (acquired), unspecified foot Casey Garner, DP 10/26/2020 L89.892 Pressure ulcer of other site, age 1 Casey Garner, DP 10/12/2020 M79.674 Pain in right toe(s) Casey mejia, DP 10/12/2020 L89.892 Pressure ulcer of other site, age 1 Casey Garner, DP 09/30/2020 L89.893 Pressure ulcer of other site, st age 2 Casey Garner, DP 09/16/2020 M79.674 Pain in right toe(s) Casey mejia, DP 09/16/2020 L89.893 Pressure ulcer of other site, age 2 Casey Garner, DP 09/09/2020 L03.031 Cellulitis of right toe Casey Garner, DP 09/09/2020 M79.674 Pain in right toe(s) Casey mejia, DPM 08/26/2020 M79.674 Pain in right toe(s) Casey mejia, DPM 08/26/2020 L89.893 Pressure ulcer of other site, st age 2 Casey Garner, DP 07/28/2020 M20.41 Other hammer toe(s) (acquired), right foot Casey Garner, DP 07/28/2020 M79.674 Pain in right toe(s) Casey mejia, NÉSTOR 07/28/2020 L89.893 Pressure ulcer of other site, st age 2 Casey Garner, NÉSTOR 07/21/2020 L03.031 Cellulitis of right toe Casey Garner, ROROM 07/21/2020 M79.674 Pain in right toe(s) Casey mejia DPM 07/21/2020 L89.893 Pressure ulcer of other site, age 2 Casey Garner DPM 06/24/2020 M20.40 Other hammer toe(s) (acquired), unspecified foot Casey Garner DPM 06/24/2020 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, unspecified ankle and foot Casey Garner DPM 06/24/2020 L84 Corns and callosities Casey Garner DPM 06/24/2020 B35.1 Tinea unguium Casey Garner DPM Plan of Treatment Future Appointment(s):* 12/02/2020 10:45 am - Casey Garner DPM at [place] [facility] Functional Status Description No Information Available Mental Status Description No Information Available Referrals Refer to Dr Reason for Referral Status Appt Date Casey Garner DPM BILATERAL HAMMER TOES, ULCER AND INFECTION ON RT 2ND TOE. Created 3 [place] [address] [phone] Casey Garner DPM Created [address] [place] [address] [phone] Casey Garner DPM Created [address] [place] [address] [phone] Casey Garner DPM Created [address] [place] [address] [phone] Casey Garner DPM BILATERAL CALLOUS AND HAMMERTOES/FOOT PAIN Created [address] [address] [phone]
--- OUTSIDE RECORDS SUMMARY | 2020-12-10 16:24 | CCD | Continuity of Care Document ---
Author Meredith Razo DPIlia Organization Unknown Address 3 [facility], [address] [place] [address] Phone [phone] Care Team Providers Care Genomics Scientist Name Role Phone Hitesh Stout, [facility] [...] kes every day 1/2 PPD x30 years Allergies, Adverse Reactions, Alerts Active Allergies Criticality Reaction | Severity Comments [...] BMI (Body Mass Index) 26.3 kg/m2 Results Description No Information Available Procedures Date Code Description Status 09/30/2020 49947 Debridement Skin/Tissue Complete d 09/16/2020 86121 Debridement Skin/Tissue Complete d 09/09/2020 56113 Office/Outpatient Established SF MDM 10-19 Min Completed 09/02/2020 79555 Hospital Subsequent Care Level 3 Completed 09/02/2020 30370 Debridement Skin/Tissue Complete d 08/26/2020 66217 Debridement Skin/Tissue Complete d 08/04/2020 30510 Debridement Of Wound 20 SQ CM Co mpleted 07/28/2020 19326 Office/Outpatient Established Lo w MDM 20-29 Min Completed 07/28/2020 34844 Debridement Skin/Tissue Complete d 07/21/2020 53685 Office/Outpatient Established Lo w MDM 20-29 Min Completed 07/21/2020 29498 Debridement Skin/Tissue Complete d 06/24/2020 54278 Office/Outpatient New Low MDM 30 -44 Minutes Completed Medical Devices Description No Information Available Encounters Type Date Location Provider Dx Diagnosis Office Visit 09/09/2020 1:30p [place] [facility] Casey Garner DPM L03.031 Cellulitis of right toe M79.674 Pain in right toe(s) Office Visit 07/28/2020 2:30p [place] [facility] Casey Garner DPM M20.41 Other hammer toe(s) (acquired), right foot M79.674 Pain in right toe(s) L89.893 Pressure ulcer of other site , stage 3 Office Visit 07/21/2020 2:30p [place] [facility] Casey Garner, DPM L03.031 Cellulitis of right toe M79.674 Pain in right toe(s) L89.893 Pressure ulcer of other site , stage 3 Office Visit 06/24/2020 10:15a [place] [facility] Casey Garner, DPM M20.40 Other hammer toe(s) (acquired), unspecified foot M84.879 Other disorders of continuit y of bone, unsp ankle and foot L84 Corns and callosities B35.1 Tinea unguium Assessments Date Code Description Provider 09/30/2020 L89.893 Pressure ulcer of other site, [facility] 3 Casey Garner, DP 09/16/2020 M79.674 Pain in right toe(s) Casey mejia, DPM 09/16/2020 L89.893 Pressure ulcer of other site, [facility] 3 Casey Garner, DPM 09/09/2020 L03.031 Cellulitis of right toe Casey Garner, DPM 09/09/2020 M79.674 Pain in right toe(s) Casey mejia, DPM 08/26/2020 M79.674 Pain in right toe(s) Casey mejia, DPM 08/26/2020 L89.893 Pressure ulcer of other site, [facility] 3 Casey Garner, DPM 07/28/2020 M20.41 Other hammer toe(s) (acquired), right foot Casey Garner, DPM 07/28/2020 M79.674 Pain in right toe(s) Casey mejia, DPM 07/28/2020 L89.893 Pressure ulcer of other site, [facility] 3 Casey Garner, DPM 07/21/2020 L03.031 Cellulitis of right toe Casey Garner, DPM 07/21/2020 M79.674 Pain in right toe(s) Casey mjeia DPM 07/21/2020 L89.893 Pressure ulcer of other site, st age 3 Casey Garner DPM 06/24/2020 M20.40 Other hammer toe(s) (acquired), unspecified foot Casey Garner DPM 06/24/2020 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, unspecified ankle and foot Casey Garner DPM 06/24/2020 L84 Corns and callosities Casey Garner DPM 06/24/2020 B35.1 Tinea unguium Casey Garner DPM Plan of Treatment Future Appointment(s):* 10/28/2020 1:00 pm - Casey Garner DPM at [facility] * 10/26/2020 8:00 am - Casey Garner DPM at [facility] * 10/12/2020 11:15 am - Casey Garner DPM at [facility] Functional Status Description No Information Available Mental Status Description No Information Available Referrals Refer to Dr Reason for Referral Status Appt Date Casey Garner DPM BILATERAL HAMMER TOES, ULCER AND INFECTION ON RT 2ND TOE. Created 3 [place] [address] [phone] Casey Garner DPM Created 3 [place] [address] [phone] Casey Garner DPM Created 3 [place] [address] [phone] Casey Garner DPM Created 3 [place] [address] [phone] Casey Garner DPM BILATERAL CALLOUS AND HAMMERTOES/FOOT PAIN Created 3 [place] [address] [phone]
--- OUTSIDE RECORDS SUMMARY | 2020-12-10 16:24 | CCD | Continuity of Care Document ---
Author Meredith Razo DPIlia Organization Unknown Address 3 [facility], [address] [place] [address] Phone [phone] Care Team Providers Care Stevedoring Superintendent Name Role Phone Hitesh Stout, [facility] [...] years Allergies, Adverse Reactions, Alerts Active Allergies Reaction Severity Comments Date Penicillins 06/24/2020 Medications Active Medications SIG Qnty Indications Ordering Provide r Date Diflucan 100mg Tablets 1 by mouth daily [...] Information Available Procedures Date Code Description Status 09/16/2020 30518 Debridement Skin/Tissue Complete d 09/09/2020 17340 Office/Outpatient Established SF MDM 10-19 Min Completed 09/02/2020 11072 Hospital Subsequent Care Level 3 Completed 09/02/2020 78140 Debridement Skin/Tissue Complete d 08/26/2020 28870 Debridement Skin/Tissue Complete d 08/04/2020 50110 Debridement Of Wound 20 SQ CM Co mpleted 07/28/2020 90215 Office/Outpatient Established Lo w MDM 20-29 Min Completed 07/28/2020 10472 Debridement Skin/Tissue Complete d 07/21/2020 13171 Office/Outpatient Established Lo w MDM 20-29 Min Completed 07/21/2020 99406 Debridement Skin/Tissue Complete d 06/24/2020 85793 Office/Outpatient New Low MDM 30 -44 Minutes Completed Medical Devices Description No Information Available Encounters Type Date Location Provider Dx Diagnosis Office Visit 09/09/2020 1:30p [place] [facility] Casey Garner DPM L03.031 Cellulitis of right toe M79.674 Pain in right toe(s) Office Visit 07/28/2020 2:30p [place] [facility] Casey Garner DPM M20.41 Other hammer toe(s) (acquired), right foot M79.674 Pain in right toe(s) L89.893 Pressure ulcer of other site , stage 3 Office Visit 07/21/2020 2:30p [place] [facility] Casey R. 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, unsp ankle and foot L84 Corns and callosities B35.1 Tinea unguium Assessments Date Code Description Provider 09/16/2020 M79.674 Pain in right toe(s) Casey mejia, DPM 09/16/2020 L89.893 Pressure ulcer of other site, [facility] 3 Casey Garner, DPM 09/09/2020 L03.031 Cellulitis of right toe Casey Garner, DPM 09/09/2020 M79.674 Pain in right toe(s) Casey mejia, DPM 08/26/2020 M79.674 Pain in right toe(s) Casey mejia, DPM 08/26/2020 L89.893 Pressure ulcer of other site, age 2 Casey Garner, DPM 07/28/2020 M20.41 Other hammer toe(s) (acquired), right foot Casey Garner, DPM 07/28/2020 M79.674 Pain in right toe(s) Casey mejia, DPM 07/28/2020 L89.893 Pressure ulcer of other site, [facility] 3 Casey Garner, DPM 07/21/2020 L03.031 Cellulitis of right toe Casey Garner, DPM 07/21/2020 M79.674 Pain in right toe(s) Casey mejia, DPM 07/21/2020 L89.893 Pressure ulcer of other site, [facility] 3 Casey Garner, DPM 06/24/2020 M20.40 Other hammer toe(s) (acquired), unspecified foot Casey Garner, DPM 06/24/2020 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, unspecified ankle and foot Casey Garner DPM 06/24/2020 L84 Corns and callosities Casey Garner DPM 06/24/2020 B35.1 Tinea unguium Casey Garner DPM Plan of Treatment Future Appointment(s):* 09/30/2020 1:45 pm - Casey Garner DPM at [place] [facility] Functional Status Description No Information Available Mental Status Description No Information Available Referrals Refer to Dr Reason for Referral Status Appt Date Casey Garner DPM BILATERAL HAMMER TOES, ULCER AND INFECTION ON RT 2ND TOE. Created [address] [place] [address] [phone] Casey Garner DPM Created [address] [place] [address] [phone] Casey Garner DPM Created [address] [place] [address] [phone] Casey Garner DPM Created [address] [place] [address] [phone] Casey Garner DPM BILATERAL CALLOUS AND HAMMERTOES/FOOT PAIN Created [address] [place] [address] [phone]
--- OUTSIDE RECORDS SUMMARY | 2020-12-10 16:24 | CCD | Continuity of Care Document ---
Author Meredith Razo DPIlia Organization Unknown Address 3 [facility], [address] [place] [address] Phone [phone] Care Team Providers Care Education Specialist Name Role Phone Hitesh Stout, [facility] Unavailable Problems Active Problems Provider Date Hammer toe Casey Garner DPM Onset: 06/26/2020 Osteochondropathy Casey aGrner DPM Onset: 06/26/2020 Callosity Casey Garner DPM [...] Available Procedures Date Code Description Status 09/16/2020 72382 Debridement Skin/Tissue Complete d 09/09/2020 14396 Office/Outpatient Established SF MDM 10-19 Min Completed 09/02/2020 18027 Hospital Subsequent Care Level 3 Completed 09/02/2020 28191 Debridement Skin/Tissue Complete d 08/26/2020 62605 Debridement Skin/Tissue Complete d 08/04/2020 96333 Debridement Of Wound 20 SQ CM Co mpleted 07/28/2020 86841 Office/Outpatient Established Lo w MDM 20-29 Min Completed 07/28/2020 26288 Debridement Skin/Tissue Complete d 07/21/2020 19556 Office/Outpatient Established Lo w MDM 20-29 Min Completed 07/21/2020 45637 Debridement Skin/Tissue Complete d 06/24/2020 12269 Office/Outpatient New Low MDM 30 -44 Minutes Completed Medical Devices Description No Information Available Encounters Type Date Location Provider Dx Diagnosis Office Visit 09/09/2020 1:30p [place] [facility] Casey Garner DPM L03.031 Cellulitis of right toe M79.674 Pain in right toe(s) Office Visit 07/28/2020 2:30p [place] [facility] Casey Garner DPM M20.41 Other hammer toe(s) (acquired), right foot M79.674 Pain in right toe(s) L89.893 Pressure ulcer of other site , stage 3 Office Visit 07/21/2020 2:30p [place] [facility] Casey Garner, DPM L03.031 Cellulitis of right toe M79.674 Pain in right toe(s) L89.893 Pressure ulcer of other site , stage 3 Office Visit 06/24/2020 10:15a [place] [facility] Casey Garner, DPM M20.40 Other hammer toe(s) (acquired), unspecified foot M84.879 Other disorders of continuit y of bone, unsp ankle and foot L84 Corns and callosities B35.1 Tinea unguium Assessments Date Code Description Provider 09/16/2020 M79.674 Pain in right toe(s) Casey mejia, DPM 09/16/2020 L89.893 Pressure ulcer of other site, [facility] 3 Casey Garner, DPM 09/09/2020 L03.031 Cellulitis of right toe Casey Garner, DPM 09/09/2020 M79.674 Pain in right toe(s) Casey mejia, DPM 08/26/2020 M79.674 Pain in right toe(s) Casey mejia, DPM 08/26/2020 L89.893 Pressure ulcer of other site, [facility] 3 Casey Garner, DPM 07/28/2020 M20.41 Other hammer toe(s) (acquired), right foot Casey Garner, DPM 07/28/2020 M79.674 Pain in right toe(s) Casey mejia, DPM 07/28/2020 L89.893 Pressure ulcer of other site, [facility] 3 Casey Garner, DPM 07/21/2020 L03.031 Cellulitis of right toe Casey Garner, DPM 07/21/2020 M79.674 Pain in right toe(s) Casey mejia, DPM 07/21/2020 L89.893 Pressure ulcer of other site, [facility] 3 Casey Garner, DPM 06/24/2020 M20.40 Other hammer toe(s) (acquired), unspecified foot Casey Garner DPM 06/24/2020 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, unspecified ankle and foot Casey Garner DPM 06/24/2020 L84 Corns and callosities Casey Garner DPM 06/24/2020 B35.1 Tinea unguium Casey Garner DPM Plan of Treatment Future Appointment(s):* 10/12/2020 11:15 am - Casey Garner DPM at [facility] * 12/02/2020 10:45 am - Casey Garner DPM at [facility] * 11/30/2020 10:00 am - Casey Garner DPM at [facility] Functional Status Description No Information Available Mental Status Description No Information Available Referrals Refer to Dr Reason for Referral Status Appt Date Casey Garner DPM BILATERAL HAMMER TOES, ULCER AND INFECTION ON RT 2ND TOE. Created [address] [place] [address] [phone] [place] [address] [phone] Casey Garner DPM Created [address] [place] [address] [phone] Casey Garner DPM Created [address] [place] [address] [phone] Casey Garner DPM BILATERAL CALLOUS AND HAMMERTOES/[place] [address] [phone]
--- OUTSIDE RECORDS SUMMARY | 2020-12-10 16:24 | CCD | Continuity of Care Document ---
Author Meredith Razo DPIlia Organization Unknown Address 3 [facility], [address] [place] [address] Phone [phone] Care Team Providers Care Dye Line Operator Name Role Phone Hitesh Stout, Clinic AUTM [...] H/L Range Note Comprehensive Metabolic Profil 10/28/2020 [facility] Glucose, Fasting 96 mg/dL Normal 70-100 Blood [...] 0.6 Low 1.2-2.2 Laboratory test finding 10/26/2020 [facility] Pathology Request For Service (SEE NOTE) 2 Comprehensive Metabolic Profil 10/24/2020 [facility] Glucose, Fasting 170 mg/dL High 70-100 Blood [...] Little GFR Left ESRD GFR <15 on PICK REMOVER 2 FINAL DIAGNOSIS Digit, right 2nd toe, [...] is noted on one aspect the toe. Merchandising Execution Manager section in one block after decalcification. -SVY 10/27/2020 - 1305 Signed ZARA SMITH MD 10/28/2020 1349 3 Units are mL/min/1.73 m2 Chronic Kidney Disease Staging per NKF: Stage I & II GFR >=60 Normal to Mildly Decreased Stage III GFR 30-59 Moderately Decreased Stage IV GFR 15-29 Severely Decreased Stage V GFR <15 Very Little GFR Left ESRD GFR <15 on PICK REMOVER Procedures Date Code Description Status 10/12/2020 82763 Debridement Skin/Tissue Complete d 09/30/2020 87067 Debridement Skin/Tissue Complete d 09/16/2020 15124 Debridement Skin/Tissue Complete d 09/09/2020 25255 Office/Outpatient Established SF MDM 10-19 Min Completed 09/02/2020 78073 Hospital Subsequent Care Level 3 Completed 09/02/2020 05052 Debridement Skin/Tissue Complete d 08/26/2020 53006 Debridement Skin/Tissue Complete d 08/04/2020 60412 Debridement Of Wound 20 SQ CM Co mpleted 07/28/2020 56993 Office/Outpatient Established Lo w MDM 20-29 Min Completed 07/28/2020 65607 Debridement Skin/Tissue Complete d 07/21/2020 29958 Office/Outpatient Established Lo w MDM 20-29 Min Completed 07/21/2020 29690 Debridement Skin/Tissue Complete d 06/24/2020 60486 Office/Outpatient New Low MDM 30 -44 Minutes Completed Medical Devices Description No Information Available Encounters Type Date Location Provider Dx Diagnosis Office Visit 09/09/2020 1:30p [place] [facility] Casey Garner DPM L03.031 Cellulitis of right toe M79.674 Pain in right toe(s) Office Visit 07/28/2020 2:30p [place] [facility] Casey Garner DPM M20.41 Other hammer toe(s) (acquired), right foot M79.674 Pain in right toe(s) L89.893 Pressure ulcer of other site , stage 3 Office Visit 07/21/2020 2:30p [place] [facility] Casey Garner DPM L03.031 Cellulitis of right toe M79.674 Pain in right toe(s) L89.893 Pressure ulcer of other site , stage 3 Office Visit 06/24/2020 10:15a [place] [facility] Casey Garner DPM M20.40 Other hammer toe(s) (acquired), unspecified foot M84.879 Other disorders of continuit y of bone, unsp ankle and foot L84 Corns and callosities B35.1 Tinea unguium Assessments Date Code Description Provider 10/12/2020 M79.674 Pain in right toe(s) Casey mejia DPM 10/12/2020 L89.892 Pressure ulcer of other site, st age 2 Casey Jackson Pascual, DPM 09/30/2020 L89.893 Pressure ulcer of other site, age 2 Casey Jackson Pascual, DPM 09/16/2020 M79.674 Pain in right toe(s) Casey mejia, DPM 09/16/2020 L89.893 Pressure ulcer of other site, age 2 Casey RBishnu Garner, DPM 09/09/2020 L03.031 Cellulitis of right toe Casey Jered Garner, DPM 09/09/2020 M79.674 Pain in right toe(s) Casey mejia, DPM 08/26/2020 M79.674 Pain in right toe(s) Casey mejia, DPM 08/26/2020 L89.893 Pressure ulcer of other site, [facility] 3 Casey Garner, DPM 07/28/2020 M20.41 Other hammer toe(s) (acquired), right foot Casey Garner, DPM 07/28/2020 M79.674 Pain in right toe(s) Casey mejia, DPM 07/28/2020 L89.893 Pressure ulcer of other site, age 2 Casey RBishnu Garner, DPM 07/21/2020 L03.031 Cellulitis of right toe Casey Garner, DPM 07/21/2020 M79.674 Pain in right toe(s) Casey mejia, DPM 07/21/2020 L89.893 Pressure ulcer of other site, [facility] 3 Casey Garner, DPM 06/24/2020 M20.40 Other hammer toe(s) (acquired), unspecified foot Casey Garner, DPM 06/24/2020 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, unspecified ankle and foot Casey Garner, DPM 06/24/2020 L84 Corns and callosities Casey Garner, DPM 06/24/2020 B35.1 Tinea unguium Casey Garner DPM Plan of Treatment Future Appointment(s):* 11/11/2020 11:00 am - Casey Garner DPM at [place] [facility] Functional Status Description No Information Available Mental Status Description No Information Available Referrals Refer to Reason for Referral Status Appt Date Casey Garner DPM BILATERAL HAMMER TOES, ULCER AND INFECTION ON RT 2[place] [address] [phone] [place] [address] [phone] [place] [address] [phone] Casey Garner DPM Created [address] [place] [address] [phone] Casey Garner DPM BILATERAL CALLOUS AND HAMMERTOES/FOOT PAIN Created [place] [id number] [phone]
--- OUTSIDE RECORDS SUMMARY | 2020-12-10 16:24 | CCD | Continuity of Care Document ---
Author Meredith Razo DPIlia Organization Unknown Address 3 [facility], [address] [place] [address] Phone [phone] Care Team Providers Care Chucking Machine Set Up Operator Name Role Phone Hitesh Stout, Clinic [...] H/L Range Note Comprehensive Metabolic Profil 10/28/2020 [facility] Glucose, Fasting 96 mg/dL Normal 70-100 Blood [...] 0.6 Low 1.2-2.2 Laboratory test finding 10/26/2020 [facility] Pathology Request For Service (SEE NOTE) 2 Comprehensive Metabolic Profil 10/24/2020 [facility] Glucose, Fasting 170 mg/dL High 70-100 Blood [...] Little GFR Left ESRD GFR <15 on HEALTHCARE ARCHITECT 2 FINAL DIAGNOSIS Digit, right 2nd toe, [...] is noted on one aspect the toe. Etymology Teacher section in one block after decalcification. -SVY 10/27/2020 - 1305 Signed ZARA SMITH MD 10/28/2020 1349 3 Units are mL/min/1.73 m2 Chronic Kidney Disease Staging per NKF: Stage I & II GFR >=60 Normal to Mildly Decreased Stage III GFR 30-59 Moderately Decreased Stage IV GFR 15-29 Severely Decreased Stage V GFR <15 Very Little GFR Left ESRD GFR <15 on HEALTHCARE ARCHITECT Procedures Date Code Description Status 10/26/2020 79956 Amputation Toe MP JT Completed 10/12/2020 42146 Debridement Skin/Tissue Complete d 09/30/2020 06458 Debridement Skin/Tissue Complete d 09/16/2020 93461 Debridement Skin/Tissue Complete d 09/09/2020 53795 Office/Outpatient Established SF MDM 10-19 Min Completed 09/02/2020 58132 [facility] Subsequent Care Level 3 Completed 09/02/2020 60848 Debridement Skin/Tissue Complete d 08/26/2020 85742 Debridement Skin/Tissue Complete d 08/04/2020 12932 Debridement Of Wound 20 SQ CM Co mpleted 07/28/2020 36678 Office/Outpatient Established Lo w MDM 20-29 Min Completed 07/28/2020 37388 Debridement Skin/Tissue Complete d 07/21/2020 36325 Office/Outpatient Established Lo w MDM 20-29 Min Completed 07/21/2020 14274 Debridement Skin/Tissue Complete d 06/24/2020 99329 Office/Outpatient New Low MDM 30 -44 Minutes Completed Medical Devices Description No Information Available Encounters Type Date Location Provider Dx Diagnosis Office Visit 10/28/2020 1:00p [place] [facility] Casey Garner DPM Z48.89 Encounter for other specified surgical aftercare Office Visit 09/09/2020 1:30p [place] [facility] Casey Garner DPM L03.031 Cellulitis of right toe M79.674 Pain in right toe(s) Office Visit 07/28/2020 2:30p [place] [facility] Casey Garner DPM M20.41 Other hammer toe(s) (acquired), right foot M79.674 Pain in right toe(s) L89.893 Pressure ulcer of other site , stage 3 Office Visit 07/21/2020 2:30p [place] [facility] Casey Garner DPM L03.031 Cellulitis of right toe M79.674 Pain in right toe(s) L89.893 Pressure ulcer of other site , stage 3 Office Visit 06/24/2020 10:15a [place] [facility] Casey Garner DPM M20.40 Other hammer toe(s) (acquired), unspecified foot M84.879 Other disorders of continuit y of bone, unsp ankle and foot L84 Corns and callosities B35.1 Tinea unguium Assessments Date Code Description Provider 10/28/2020 Z48.89 Encounter for other specified adair rgical aftercare Casey Garner, DPM 10/26/2020 M86.171 Other acute osteomyelitis, right ankle and foot Casey Garner, DPM 10/26/2020 M20.40 Other hammer toe(s) (acquired), unspecified foot Casey Garner, DPM 10/26/2020 L89.892 Pressure ulcer of other site, age 1 Casey Garner, DPM 10/12/2020 M79.674 Pain in right toe(s) Casey mejia, DPM 10/12/2020 L89.892 Pressure ulcer of other site, age 1 Casey Garner, DPM 09/30/2020 L89.893 Pressure ulcer of other site, age 2 Casey Garner, DPM 09/16/2020 M79.674 Pain in right toe(s) Casey mejia, DPM 09/16/2020 L89.893 Pressure ulcer of other site, age 2 Casey Garner, DPM 09/09/2020 L03.031 Cellulitis [...] other site, age 2 Casey Garner, DPM 07/21/2020 L03.031 Cellulitis [...] 11:00 am - Casey Garner DPM at [place] [facility] Functional Status Description No Information Available Mental Status Description No Information Available Referrals Refer to Dr Reason for Referral Status Appt Date Casey Garner DPM BILATERAL HAMMER TOES, ULCER AND INFECTION ON RT 2ND TOE. Created [address] [place] [address] [phone] Casey Garner DPM Created [address] [place] [address] [phone] Casey Garner DPM Created [address] [place] [address] [phone] Casey Garner DPM Created [address] [place] [address] [phone] Casey Garner DPM BILATERAL CALLOUS AND HAMMERTOES/FOOT PAIN Created [address] [place] [address] [phone]
--- OUTSIDE RECORDS SUMMARY | 2020-12-10 16:24 | CCD | Continuity of Care Document ---
Author Meredith Razo DPIlia Organization Unknown Address [address], [address] [place] [address] Phone [phone] Care Team Providers Care It Lead Name Role Phone Hitesh Stout, Clinic AUTM [...] Result H/L Range Note Comprehensive Metabolic Profil 10/24/2020 [facility] Glucose, Fasting 170 mg/dL High 70-100 Blood [...] Little GFR Left ESRD GFR <15 on FOOD TECHNOLOGIST Procedures Date Code Description Status 10/12/2020 35081 Debridement Skin/Tissue Complete d 09/30/2020 59404 Debridement Skin/Tissue Complete d 09/16/2020 83994 Debridement Skin/Tissue Complete d 09/09/2020 77078 Office/Outpatient Established SF MDM 10-19 Min Completed 09/02/2020 21938 Hospital Subsequent Care Level 3 Completed 09/02/2020 96147 Debridement Skin/Tissue Complete d 08/26/2020 10468 Debridement Skin/Tissue Complete d 08/04/2020 39226 Debridement Of Wound 20 SQ CM Co mpleted 07/28/2020 26526 Office/Outpatient Established Lo w MDM 20-29 Min Completed 07/28/2020 00176 Debridement Skin/Tissue Complete d 07/21/2020 17831 Office/Outpatient Established Lo w MDM 20-29 Min Completed 07/21/2020 19748 Debridement Skin/Tissue Complete d 06/24/2020 17310 Office/Outpatient New Low MDM 30 -44 Minutes Completed Medical Devices Description No Information Available Encounters Type Date Location Provider Dx Diagnosis Office Visit 09/09/2020 1:30p [place] [facility] Casey Garner DPM L03.031 Cellulitis of right toe M79.674 Pain in right toe(s) Office Visit 07/28/2020 2:30p [place] [facility] Casey Garner DPM M20.41 Other hammer toe(s) (acquired), right foot M79.674 Pain in right toe(s) L89.893 Pressure ulcer of other site , stage 3 Office Visit 07/21/2020 2:30p [place] [facility] Casey Garner DPM L03.031 Cellulitis of right toe M79.674 Pain in right toe(s) L89.893 Pressure ulcer of other site , stage 3 Office Visit 06/24/2020 10:15a [place] [facility] Casey Garner DPM M20.40 Other hammer toe(s) (acquired), unspecified foot M84.879 Other disorders of continuit y of bone, unsp ankle and foot L84 Corns and callosities B35.1 Tinea unguium Assessments Date Code Description Provider 10/12/2020 M79.674 Pain in right toe(s) Casey mejia, DPM 10/12/2020 L89.892 Pressure ulcer of other site, age 1 Casey RBishnu Garner, DPM 09/30/2020 L89.893 Pressure ulcer of other site, age 2 Casey LawtonBishnu Garner, DPM 09/16/2020 M79.674 Pain in right [...] other site, age 2 Casey Garner, DPM 06/24/2020 M20.40 Other hammer toe(s) (acquired), unspecified foot Casey Garner, DPM 06/24/2020 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, unspecified ankle and foot Casey Garner, DPM 06/24/2020 L84 Corns and callosities Casey Garner DPM 06/24/2020 B35.1 Tinea unguium Casey Garner DPM Plan of Treatment Future Appointment(s):* 10/28/2020 1:00 pm - Casey Garner DPM at [facility] * 10/26/2020 8:00 am - Casey Garner DPM at [facility] Functional Status Description No Information Available Mental Status Description No Information Available Referrals Refer to Dr Reason for Referral Status Appt Date Casey Garner DPM BILATERAL HAMMER TOES, ULCER AND INFECTION ON RT 2ND TOE. Created [address] [place] [address] [phone] Casey Garner DPM Created [address] [place] [address] [phone] Casey [place] [address] [phone] Casey Garner DPM Created [address] [place] [address] [phone] Casey Garner DPM BILATERAL CALLOUS AND HAMMERTOES/[place] [address] [phone]
--- OUTSIDE RECORDS SUMMARY | 2020-12-10 16:24 | CCD | Continuity of Care Document ---
Author Meredith Razo DPIlia Organization Unknown Address [address], [address] [place] [address] Phone [phone] Care Team Providers Care Cnc Field Service Engineer Name Role Phone Hitesh Stout, Clinic AUTM Unavailable Problems Active Problems Provider Date Hammer toe Casey Garner DPM Onset: 06/26/2020 Osteochondropathy Casey Garner DPM Onset: 06/26/2020 Callosity Casey Garner DPM Onset: 06/26/2020 Onychomycosis Casye Garner DPM Onset: 06/26/2020 Cellulitis of toe [...] Information Available Procedures Date Code Description Status 10/12/2020 86648 Debridement Skin/Tissue Complete d 09/30/2020 30228 Debridement Skin/Tissue Complete d 09/16/2020 05389 Debridement Skin/Tissue Complete d 09/09/2020 21371 Office/Outpatient Established SF MDM 10-19 Min Completed 09/02/2020 67728 Hospital Subsequent Care Level 3 Completed 09/02/2020 10183 Debridement Skin/Tissue Complete d 08/26/2020 56653 Debridement Skin/Tissue Complete d 08/04/2020 39096 Debridement Of Wound 20 SQ CM Co mpleted 07/28/2020 52454 Office/Outpatient Established Lo w MDM 20-29 Min Completed 07/28/2020 90881 Debridement Skin/Tissue Complete d 07/21/2020 75571 Office/Outpatient Established Lo w MDM 20-29 Min Completed 07/21/2020 98565 Debridement Skin/Tissue Complete d 06/24/2020 86738 Office/Outpatient New Low MDM 30 -44 Minutes Completed Medical Devices Description No Information Available Encounters Type Date Location Provider Dx Diagnosis Office Visit 09/09/2020 1:30p [place] [facility] Casey Garner DPM L03.031 Cellulitis of right toe M79.674 Pain in right toe(s) Office Visit 07/28/2020 2:30p [place] [facility] Casey R. 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, unsp ankle and foot L84 Corns and callosities B35.1 Tinea unguium Assessments Date Code Description Provider 10/12/2020 M79.674 Pain in right toe(s) Casey mejia, DPM 10/12/2020 L89.892 Pressure ulcer of other site, st age 2 Casey Garner, DPM 09/30/2020 L89.893 Pressure ulcer of other site, st age 3 Casey Garner, DPM 09/16/2020 M79.674 Pain in right toe(s) Casey mejia, DPM 09/16/2020 L89.893 Pressure ulcer of other site, st age 3 Casey Garner, DPM 09/09/2020 L03.031 Cellulitis of right toe Casey Garner, DPM 09/09/2020 M79.674 Pain in right toe(s) Casey mejia, DPM 08/26/2020 M79.674 Pain in right toe(s) Casey mejia, DPM 08/26/2020 L89.893 Pressure ulcer of other site, st age 3 Casey Garner, DPM 07/28/2020 M20.41 Other hammer toe(s) (acquired), right foot Casey Garner, DPM 07/28/2020 M79.674 Pain in right toe(s) Casey mejia, DPM 07/28/2020 L89.893 Pressure ulcer of other site, st age 3 Casey Garner, ROROM 07/21/2020 L03.031 Cellulitis of right toe Casey Garner, ROROM 07/21/2020 M79.674 Pain in right toe(s) Casey mejia, ROROM 07/21/2020 L89.893 Pressure ulcer of other site, st age 3 RORO WhiteM 06/24/2020 M20.40 Other hammer toe(s) (acquired), unspecified foot Casey Garner DPM 06/24/2020 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, unspecified ankle and foot Casey Garner DPM 06/24/2020 L84 Corns and callosities Casey Garner DPM 06/24/2020 B35.1 Tinea unguium Casey Garner DPM Plan of Treatment Future Appointment(s):* 10/28/2020 1:00 pm - Casey Garner DPM at [facility] * 10/26/2020 8:00 am - Casey Garner DPM at [facility] Functional Status Description No Information Available Mental Status Description No Information Available Referrals Refer to Dr Reason for Referral Status Appt Date Casey Garner DPM BILATERAL HAMMER TOES, ULCER AND INFECTION ON RT 2ND TOE. Created [address] [place] [address] [phone] Casey Garner DPM Created [address] [place] [address] [phone] Casey Garner DPM Created 3 [place] [id number] [phone] Casey Garner DPM BILATERAL CALLOUS AND HAMMERTOES/FOOT PAIN Created [address] [place] [address] [phone]
--- OUTSIDE RECORDS SUMMARY | 2020-12-10 16:24 | CCD | Continuity of Care Document ---
Author Meredith Razo DPIlia Organization Unknown Address 3 [facility], [address] [place] [address] Phone [phone] Care Team Providers Care Parachute Manufacturing Supervisor Name Role Phone Hitesh Stout, Clinic AUTM [...] Information Available Procedures Date Code Description Status 09/09/2020 60326 Office/Outpatient Established SF MDM 10-19 Min Completed 09/02/2020 62332 [facility] Subsequent Care Level 3 Completed 09/02/2020 96452 Debridement Skin/Tissue Complete d 08/26/2020 22679 Debridement Skin/Tissue Complete d 08/04/2020 68709 Debridement Of Wound 20 SQ CM Co mpleted 07/28/2020 38759 Office/Outpatient Established Lo w MDM 20-29 Min Completed 07/28/2020 50521 Debridement Skin/Tissue Complete d 07/21/2020 51806 Office/Outpatient Established Lo w MDM 20-29 Min Completed 07/21/2020 50978 Debridement Skin/Tissue Complete d 06/24/2020 59524 Office/Outpatient New Low MDM 30 -44 Minutes Completed Medical Devices Description No Information Available Encounters Type Date Location Provider Dx Diagnosis Office Visit 09/09/2020 1:30p [place] [facility] Casey Garner DPM L03.031 Cellulitis of right toe M79.674 Pain in right toe(s) Office Visit 07/28/2020 2:30p [place] [facility] Casey Garner DPM M20.41 Other hammer toe(s) (acquired), right foot M79.674 Pain in right toe(s) L89.893 Pressure ulcer of other site , stage 3 Office Visit 07/21/2020 2:30p [place] [facility] Casey Garner DPM L03.031 Cellulitis of right toe M79.674 Pain in right toe(s) L89.893 Pressure ulcer of other site , stage 3 Office Visit 06/24/2020 10:15a [place] [facility] Casey Garner, NÉSTOR M20.40 Other hammer toe(s) (acquired), unspecified foot M84.879 Other disorders of continuit y of bone, unsp ankle and foot L84 Corns and callosities B35.1 Tinea unguium Assessments Date Code Description Provider 09/09/2020 L03.031 Cellulitis of right toe Casey Garner, DPM 09/09/2020 M79.674 Pain in right toe(s) Casey mejia, DP 08/26/2020 M79.674 Pain in right toe(s) Casey mejia, DPM 08/26/2020 L89.893 Pressure ulcer of other site, [facility] 3 Casey Garner, NÉSTOR 07/28/2020 M20.41 Other hammer toe(s) (acquired), right foot Casey Garner, DP 07/28/2020 M79.674 Pain in right toe(s) Casey mejia, DP 07/28/2020 L89.893 Pressure ulcer of other site, age 2 Casey Garner, DP 07/21/2020 L03.031 Cellulitis of right toe Casey Garner, DPM 07/21/2020 M79.674 Pain in right toe(s) Casey mejia, DP 07/21/2020 L89.893 Pressure ulcer of other site, age 2 Casey Garner, DP 06/24/2020 M20.40 Other hammer toe(s) (acquired), unspecified foot Casey Garner, NÉSTOR 06/24/2020 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, unspecified ankle and foot Casey Garner, NÉSTOR 06/24/2020 L84 Corns and callosities Casey Garner, DPIlia 06/24/2020 B35.1 Tinea unguium Casey Garner DPM Plan of Treatment No Information Available Functional Status Description No Information Available Mental Status Description No Information Available Referrals Refer to Dr Reason for Referral Status Appt Date [place] [address] [phone] [place] [address] [phone] Casey Garner DPM Created [place] [id number] [phone] Casey Garner DPM BILATERAL CALLOUS AND HAMMERTOES/[place] [address] [phone]
--- OUTSIDE RECORDS SUMMARY | 2020-12-10 16:24 | CCD | Continuity of Care Document ---
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 SOFTWARE DEVELOPER Procedures Date Code Description Status 10/12/2020 41317 Debridement Skin/Tissue Complete d 09/30/2020 76781 Debridement Skin/Tissue Complete d 09/16/2020 80537 Debridement Skin/Tissue Complete d 09/09/2020 56913 Office/Outpatient Established SF MDM 10-19 Min Completed 09/02/2020 62159 Hospital Subsequent Care Level 3 Completed 09/02/2020 05957 Debridement Skin/Tissue Complete d 08/26/2020 64057 Debridement Skin/Tissue Complete d 08/04/2020 23263 Debridement Of Wound 20 SQ CM Co mpleted 07/28/2020 47114 Office/Outpatient Established Lo w MDM 20-29 Min Completed 07/28/2020 42015 Debridement Skin/Tissue Complete d 07/21/2020 83531 Office/Outpatient Established Lo w MDM 20-29 Min Completed 07/21/2020 92105 Debridement Skin/Tissue Complete d 06/24/2020 95927 Office/Outpatient New Low MDM 30 -44 Minutes Completed Medical Devices Description No Information Available Encounters Type Date Location Provider Dx Diagnosis Office Visit 09/09/2020 1:30p [place] [facility] Casey Garner DPM L03.031 Cellulitis of right toe M79.674 Pain in right toe(s) Office Visit 07/28/2020 2:30p [place] [facility] Casey Garner DPM M20.41 Other hammer toe(s) (acquired), right foot M79.674 Pain in right toe(s) L89.893 Pressure ulcer of other site , stage 3 Office Visit 07/21/2020 2:30p [place] [facility] Casey Garner DPM L03.031 Cellulitis of right toe M79.674 Pain in right toe(s) L89.893 Pressure ulcer of other site , stage 3 Office Visit 06/24/2020 10:15a [place] [facility] Casey Garner DPM M20.40 Other hammer [...] 1:00 pm - Casey Garner DPM at [facility] * 10/26/2020 8:00 am - Casey Garner DPM at [facility] Functional Status Description No Information Available Mental Status Description No Information Available Referrals Refer to Dr Reason for Referral Status Appt Date Casey Garner DPM BILATERAL HAMMER TOES, ULCER AND INFECTION ON RT 2ND TOE. Created [address] [place] [address] [phone] Casey Garner DPM Created [address] [place] [address] [phone] [place] [address] [phone] Casey Garner DPM Created [address] [place] [address] [phone] Casey Garner DPM BILATERAL CALLOUS AND HAMMERTOES/[place] [address] [phone]
--- OUTSIDE RECORDS SUMMARY | 2020-12-10 16:24 | CCD | Continuity of Care Document ---
Author Meredith Razo DPIlia Organization Unknown Address 3 [facility], [address] [place] [address] Phone [phone] Care Team Providers Care Stone Layer Name Role Phone [facility]h Stout, [facility] AUTM [...] H/L Range Note Comprehensive Metabolic Profil 10/28/2020 [facility] Glucose, Fasting 96 mg/dL Normal 70-100 Blood [...] 0.6 Low 1.2-2.2 Laboratory test finding 10/26/2020 [facility] Pathology Request For Service (SEE NOTE) 2 Comprehensive Metabolic Profil 10/24/2020 [facility] Glucose, Fasting 170 mg/dL High 70-100 Blood [...] Little GFR Left ESRD GFR <15 on [employer] TECHNICAL MANAGER 2 FINAL DIAGNOSIS Digit, right 2nd toe, [...] is noted on one aspect the toe. Cap Cutter section in one block after decalcification. -SVY 10/27/2020 - 1305 Signed ZARA SMITH MD 10/28/2020 1349 3 Units are mL/min/1.73 m2 Chronic Kidney Disease Staging per NKF: Stage I & II GFR >=60 Normal to Mildly Decreased Stage III GFR 30-59 Moderately Decreased Stage IV GFR 15-29 Severely Decreased Stage V GFR <15 Very Little GFR Left ESRD GFR <15 on [employer] TECHNICAL MANAGER Procedures Date Code Description Status 10/26/2020 67991 Amputation Toe MP JT Completed 10/12/2020 37206 Debridement Skin/Tissue Complete d 09/30/2020 37693 Debridement Skin/Tissue Complete d 09/16/2020 17729 Debridement Skin/Tissue Complete d 09/09/2020 48411 Office/Outpatient Established SF MDM 10-19 Min Completed 09/02/2020 87382 [facility] Subsequent Care Level 3 Completed 09/02/2020 51730 Debridement Skin/Tissue Complete d 08/26/2020 93178 Debridement Skin/Tissue Complete d 08/04/2020 69303 Debridement Of Wound 20 SQ CM Co mpleted 07/28/2020 18829 Office/Outpatient Established Lo w MDM 20-29 Min Completed 07/28/2020 81743 Debridement Skin/Tissue Complete d 07/21/2020 85013 Office/Outpatient Established Lo w MDM 20-29 Min Completed 07/21/2020 99252 Debridement Skin/Tissue Complete d 06/24/2020 56507 Office/Outpatient New Low MDM 30 -44 Minutes Completed Medical Devices Description No Information Available Encounters Type Date Location Provider Dx Diagnosis Office Visit 09/09/2020 1:30p [place] [facility] Casey Garner DPM L03.031 Cellulitis of right toe M79.674 Pain in right toe(s) Office Visit 07/28/2020 2:30p [facility] Casey Garner DPM M20.41 Other hammer toe(s) (acquired), right foot M79.674 Pain in right toe(s) L89.893 Pressure ulcer of other site , stage 3 Office Visit 07/21/2020 2:30p [facility] Casey Garner DPM L03.031 Cellulitis of right toe M79.674 Pain in right toe(s) L89.893 Pressure ulcer of other site , stage 3 Office Visit 06/24/2020 10:15a [place] [facility] Casey Garner DPM M20.40 Other hammer toe(s) (acquired), unspecified foot M84.879 Other disorders of continuit y of bone, unsp ankle and foot L84 Corns and callosities B35.1 Tinea unguium Assessments Date Code Description Provider 10/26/2020 M86.171 Other acute osteomyelitis, right ankle and foot Casey Wardtara, DPM 10/26/2020 M20.40 Other hammer toe(s) (acquired), unspecified foot Casey Jackson Pascual, DPM 10/26/2020 L89.892 Pressure ulcer of other site, age 1 Casey Garner, DPM 10/12/2020 M79.674 Pain in right toe(s) Casey mejia, DPM 10/12/2020 L89.892 Pressure ulcer of other site, age 1 Casey Wardtara, DPM 09/30/2020 L89.893 Pressure ulcer of other site, age 2 Casey Jackson Pascual, DPM 09/16/2020 M79.674 Pain in right toe(s) Casey mejia, DPM 09/16/2020 L89.893 Pressure ulcer of other site, [facility] 3 Casey Jackson Pascual, DPM 09/09/2020 L03.031 Cellulitis of right toe Casey R Bishnu Garner, DPM 09/09/2020 M79.674 Pain in right toe(s) Casey mejia, DPM 08/26/2020 M79.674 Pain in right toe(s) Casey mejia, DPM 08/26/2020 L89.893 Pressure ulcer of other site, age 2 Casey Jackson tara, DPM 07/28/2020 M20.41 Other hammer toe(s) (acquired), right foot Casey JeredBishnu Garner, DPM 07/28/2020 M79.674 Pain in right toe(s) Casey mejia, DPM 07/28/2020 L89.893 Pressure ulcer of other site, age 2 Casey R. Pascual, DPM 07/21/2020 L03.031 Cellulitis of right toe Casey Jered Bishnu Garner, DPM 07/21/2020 M79.674 Pain in right toe(s) Casey mejia, DPM 07/21/2020 L89.893 Pressure ulcer of other site, age 2 Casey RBishnu Garner, DPM 06/24/2020 M20.40 Other hammer toe(s) (acquired), unspecified foot Casey Garner DPM 06/24/2020 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, unspecified ankle and foot Casey Garner DPM 06/24/2020 L84 Corns and callosities Casey Garner DPM 06/24/2020 B35.1 Tinea unguium Caesy Garner DPM Plan of Treatment Future Appointment(s):* 11/11/2020 11:00 am - Casey Garner DPM at [facility] Functional Status Description No Information Available Mental Status Description No Information Available Referrals Refer to Dr Reason for Referral Status Appt Date Casey Garner DPM BILATERAL HAMMER TOES, ULCER AND INFECTION ON RT 2ND TOE. Created 3 [place] [address] [phone] Casey Garner DPM Created 3 [place] [address] [phone] Casey Garner DPM Created [address] [place] [address] [phone] Casey Garner DPM Created [address] [place] [address] [phone] Casey Garner DPM BILATERAL CALLOUS AND HAMMERTOES/FOOT PAIN Created 3 [place] [address] [phone]
--- OUTSIDE RECORDS SUMMARY | 2020-12-10 16:24 | CCD | Continuity of Care Document ---
Author Meredith Razo DPIlia Organization Unknown Address 3 [facility], [address] [place] [address] Phone [phone] Care Team Providers Care Epic Prelude Analyst Name Role Phone Hitesh Stout, Clinic AUTM [...] H/L Range Note Comprehensive Metabolic Profil 10/28/2020 [facility] Glucose, Fasting 96 mg/dL Normal 70-100 [...] 0.6 Low 1.2-2.2 Laboratory test finding 10/26/2020 [facility] Pathology Request For Service (SEE NOTE) 2 Comprehensive Metabolic Profil 10/24/2020 [facility] Glucose, Fasting 170 mg/dL High 70-100 [...] Little GFR Left ESRD GFR <15 on DIRECTOR OF FUNDRAISING 2 FINAL DIAGNOSIS Digit, right 2nd toe, [...] is noted on one aspect the toe. [employer] Membership Sales Agent section in one block after decalcification. -SVY 10/27/2020 - 1305 Signed ZARA SMITH MD 10/28/2020 1349 3 Units are mL/min/1.73 m2 Chronic Kidney Disease Staging per NKF: Stage I & II GFR >=60 Normal to Mildly Decreased Stage III GFR 30-59 Moderately Decreased Stage IV GFR 15-29 Severely Decreased Stage V GFR <15 Very Little GFR Left ESRD GFR <15 on DIRECTOR OF FUNDRAISING Procedures Date Code Description Status 10/26/2020 53907 Amputation Toe MP JT Completed 10/12/2020 41714 Debridement Skin/Tissue Complete d 09/30/2020 98425 Debridement Skin/Tissue Complete d 09/16/2020 41653 Debridement Skin/Tissue Complete d 09/09/2020 20123 Office/Outpatient Established SF MDM 10-19 Min Completed 09/02/2020 35308 [facility] Subsequent Care Level 3 Completed 09/02/2020 63597 Debridement Skin/Tissue Complete d 08/26/2020 10130 Debridement Skin/Tissue Complete d 08/04/2020 24192 Debridement Of Wound 20 SQ CM Co mpleted 07/28/2020 71575 Office/Outpatient Established Lo w MDM 20-29 Min Completed 07/28/2020 05635 Debridement Skin/Tissue Complete d 07/21/2020 47408 Office/Outpatient Established Lo w MDM 20-29 Min Completed 07/21/2020 96679 Debridement Skin/Tissue Complete d 06/24/2020 86249 Office/Outpatient New Low MDM 30 -44 Minutes Completed Medical Devices Description No Information Available Encounters Type Date Location Provider Dx Diagnosis Office Visit 10/28/2020 1:00p [place] [facility] Casey Garner DPM Z48.89 Encounter for other specified surgical aftercare Office Visit 09/09/2020 1:30p [facility] Casey Garner DPM L03.031 Cellulitis of right toe M79.674 Pain in right toe(s) Office Visit 07/28/2020 2:30p [facility] Casey Garner DPM M20.41 Other hammer toe(s) (acquired), right foot M79.674 Pain in right toe(s) L89.893 Pressure ulcer of other site , stage 3 Office Visit 07/21/2020 2:30p [facility] Casey Garner DPM L03.031 Cellulitis of right toe M79.674 Pain in right toe(s) L89.893 Pressure ulcer of other site , stage 3 Office Visit 06/24/2020 10:15a [facility] Casey Garner DPM M20.40 Other hammer [...] 10:45 am - Casey Garner DPM at [facility] Functional Status Description No Information Available Mental Status Description No Information Available Referrals Refer to Dr Reason for Referral Status Appt Date Casey Garner DPM BILATERAL HAMMER TOES, ULCER AND INFECTION ON RT 2ND TOE. Created 3 [place] [address] [phone] Casey Garner DPM Created 3 [place] [address] [phone] Casey Garner DPM Created [address] [address] [phone] Casey Garner DPM Created [address] [place] [address] [phone] Casey Garner DPM BILATERAL CALLOUS AND HAMMERTOES/FOOT PAIN Created 3 [place] [address] [phone]
--- OUTSIDE RECORDS SUMMARY | 2020-12-10 16:24 | CCD | Continuity of Care Document ---
Author Meredith Razo DPIlia Organization Unknown Address 3 [facility], [address] [place] [address] Phone [phone] Care Team Providers Care Tree Thinner Name Role Phone Hitesh Stout, Clinic AUTM [...] H/L Range Note Comprehensive Metabolic Profil 10/28/2020 [facility] Glucose, Fasting 96 mg/dL Normal 70-100 [...] Low 3.2-5.2 Albumin/Globulin Ratio 0.6 Low 1.2-2.2 Comprehensive Metabolic Profil 10/24/2020 [facility] Glucose, Fasting 170 mg/dL High 70-100 Blood Urea Nitrogen 17 mg/dL Normal 7-18 Creatinine For GFR 0.85 mg/dL Normal 0.55-1.30 Glomerular Filtration Rate > 60.0 Normal >51 2 Sodium Level 136 mEq/L Normal 136-145 Potassium [...] Little GFR Left ESRD GFR <15 on MARKET RESEARCH COORDINATOR 2 Units are mL/min/1.73 m2 Chronic Kidney Disease Staging per NKF: Stage I & II GFR >=60 Normal to Mildly Decreased Stage III GFR 30-59 Moderately Decreased Stage IV GFR 15-29 Severely Decreased Stage V GFR <15 Very Little GFR Left ESRD GFR <15 on MARKET RESEARCH COORDINATOR Procedures Date Code Description Status 10/12/2020 23717 Debridement Skin/Tissue Complete d 09/30/2020 66970 Debridement Skin/Tissue Complete d 09/16/2020 44504 Debridement Skin/Tissue Complete d 09/09/2020 42404 Office/Outpatient Established MDM 10-19 Min Completed 09/02/2020 24857 Hospital Subsequent Care Level 3 Completed 09/02/2020 19693 Debridement Skin/Tissue Complete d 08/26/2020 61339 Debridement Skin/Tissue Complete d 08/04/2020 94639 Debridement Of Wound 20 SQ CM Co mpleted 07/28/2020 94734 Office/Outpatient Established Lo w MDM 20-29 Min Completed 07/28/2020 16705 Debridement Skin/Tissue Complete d 07/21/2020 27608 Office/Outpatient Established Lo w MDM 20-29 Min Completed 07/21/2020 60283 Debridement Skin/Tissue Complete d 06/24/2020 32172 Office/Outpatient New Low [facility] 30 -44 Minutes Completed Medical Devices Description No Information Available Encounters Type Date Location Provider Dx Diagnosis Office Visit 09/09/2020 1:30p [place] [facility] Casey Garner DPM L03.031 Cellulitis of right toe M79.674 Pain in right toe(s) Office Visit 07/28/2020 2:30p [place] [facility] Casey Garner DPM M20.41 Other hammer toe(s) (acquired), right foot M79.674 Pain in right toe(s) L89.893 Pressure ulcer of other site , stage 3 Office Visit 07/21/2020 2:30p [place] [facility] Casey Garner DPM L03.031 Cellulitis of right toe M79.674 Pain in right toe(s) L89.893 Pressure ulcer of other site , stage 3 Office Visit 06/24/2020 10:15a [place] [facility] Casey Garner DPM M20.40 Other hammer toe(s) (acquired), unspecified foot M84.879 Other disorders of continuit y of bone, unsp ankle and foot L84 Corns and callosities B35.1 Tinea unguium Assessments Date Code Description Provider 10/12/2020 M79.674 Pain in right toe(s) Casey mejia, NÉSTOR 10/12/2020 L89.892 Pressure ulcer of other site, st age 2 Casey Garner DPM 09/30/2020 L89.893 Pressure ulcer of other site, st age 3 Casey Garner DPM 09/16/2020 M79.674 Pain in right toe(s) Casey mejia, NÉSTOR 09/16/2020 L89.893 Pressure ulcer of other site, st age 3 Casey Garner, NÉSTOR 09/09/2020 L03.031 Cellulitis of right toe Casey Garner, NÉSTOR 09/09/2020 M79.674 Pain in right toe(s) Casey mejia, NÉSTOR 08/26/2020 M79.674 Pain in right toe(s) Casey mejia, DPM 08/26/2020 L89.893 Pressure ulcer of other site, age 2 Casey Garner, DPM 07/28/2020 M20.41 Other hammer toe(s) (acquired), right foot Casey Garner, DPM 07/28/2020 M79.674 Pain in right toe(s) Casey mejia, DPM 07/28/2020 L89.893 Pressure ulcer of other site, [facility] 3 Casey Garner, DPM 07/21/2020 L03.031 Cellulitis of right toe Casey Garner, DPM 07/21/2020 M79.674 Pain in right toe(s) Casey mejia, DPM 07/21/2020 L89.893 Pressure ulcer of other site, [facility] 3 Casey Garner, DPM 06/24/2020 M20.40 [...] INFECTION ON RT 2ND TOE. Created [address] [address] [phone] Casey Garner DPM Created [address] [address] [phone] Casey Garner DPM Created [address] [address] [phone] Casey Garner DPM Created [address] [address] [phone] Casey Garner, ROROM BILATERAL CALLOUS AND HAMMERTOES/FOOT PAIN Created [address] [place] [address] [phone]
--- OUTSIDE RECORDS SUMMARY | 2020-12-10 16:24 | CCD | Continuity of Care Document ---
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 Pain Management Nurse section in one block after decalcification. -SVY 10/27/2020 - 1305 Signed ZARA SMITH MD 10/28/2020 1349 3 Units are mL/min/1.73 m2 Chronic Kidney Disease Staging per NKF: Stage I & II GFR >=60 Normal to Mildly Decreased Stage III GFR 30-59 Moderately Decreased Stage IV GFR 15-29 Severely Decreased Stage V GFR <15 Very Little GFR Left ESRD GFR <15 on MARKETING PROPOSAL COORDINATOR Procedures Date Code Description Status 10/12/2020 24844 Debridement Skin/Tissue Complete d 09/30/2020 80556 Debridement Skin/Tissue Complete d 09/16/2020 67984 Debridement Skin/Tissue Complete d 09/09/2020 21774 Office/Outpatient Established SF MDM 10-19 Min Completed 09/02/2020 34368 Hospital Subsequent Care Level 3 Completed 09/02/2020 34185 Debridement Skin/Tissue Complete d 08/26/2020 87854 Debridement Skin/Tissue Complete d 08/04/2020 44995 Debridement Of Wound 20 SQ CM Co mpleted 07/28/2020 94521 Office/Outpatient Established Lo w MDM 20-29 Min Completed 07/28/2020 07144 Debridement Skin/Tissue Complete d 07/21/2020 91821 Office/Outpatient Established Lo w MDM 20-29 Min Completed 07/21/2020 39054 Debridement Skin/Tissue Complete d 06/24/2020 19376 Office/Outpatient New Low MDM 30 -44 Minutes Completed Medical Devices Description No Information Available Encounters Type Date Location Provider Dx Diagnosis Office Visit 09/09/2020 1:30p [place] [facility] Casey Garner DPM L03.031 Cellulitis of right toe M79.674 Pain in right toe(s) Office Visit 07/28/2020 2:30p [place] [facility] Casey Garner DPM M20.41 Other hammer toe(s) (acquired), right foot M79.674 Pain in right toe(s) L89.893 Pressure ulcer of other site , stage 3 Office Visit 07/21/2020 2:30p [place] [facility] Casey Garner DPM L03.031 Cellulitis of right toe M79.674 Pain in right toe(s) L89.893 Pressure ulcer of other site , stage 3 Office Visit 06/24/2020 10:15a [place] [facility] Casey Garner DPM M20.40 Other hammer [...] 08/26/2020 L89.893 Pressure ulcer of other site, [facility] 3 Casey Garner, DPM 07/28/2020 M20.41 Other hammer toe(s) (acquired), right foot Casey Garner, DPM 07/28/2020 M79.674 Pain in right toe(s) Casey mejia, DPM 07/28/2020 L89.893 Pressure ulcer of other site, age 2 Casey RBishnu Garner, DPM 07/21/2020 L03.031 Cellulitis of right toe Casey Graner, DPM 07/21/2020 M79.674 Pain in right toe(s) Casey mejia, DPM 07/21/2020 L89.893 Pressure ulcer of other site, [facility] 3 Casey Garner, DPM 06/24/2020 M20.40 Other hammer toe(s) (acquired), unspecified foot Casye Garner, DPM 06/24/2020 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 [address] [phone] Casey [place] [address] [phone] Casey [place] [address] [phone] Casey Garner DPM Created [address] [place] [address] [phone] Casey Garner DPM BILATERAL CALLOUS AND HAMMERTOES/FOOT PAIN Created [place] [id number] [phone]
--- OUTSIDE RECORDS SUMMARY | 2020-12-10 16:24 | CCD | Continuity of Care Document ---
Author Meredith Razo DPIlia Organization Unknown Address 3 [facility], [address] [place] [address] Phone [phone] Care Team Providers Care Lead Security Officer Name Role Phone Hitesh Stout, Clinic AUTM [...] H/L Range Note Comprehensive Metabolic Profil 10/28/2020 [facility] Glucose, Fasting 96 mg/dL Normal 70-100 Blood [...] 0.6 Low 1.2-2.2 Comprehensive Metabolic Profil 10/24/2020 [facility] Glucose, Fasting 170 mg/dL High 70-100 Blood [...] Little GFR Left ESRD GFR <15 on MEDIA SERVICES COORDINATOR 2 Units are mL/min/1.73 m2 Chronic Kidney Disease Staging per NKF: Stage I & II GFR >=60 Normal to Mildly Decreased Stage III GFR 30-59 Moderately Decreased Stage IV GFR 15-29 Severely Decreased Stage V GFR <15 Very Little GFR Left ESRD GFR <15 on MEDIA SERVICES COORDINATOR Procedures Date Code Description Status 10/12/2020 11726 Debridement Skin/Tissue Complete d 09/30/2020 89781 Debridement Skin/Tissue Complete d 09/16/2020 74909 Debridement Skin/Tissue Complete d 09/09/2020 10530 Office/Outpatient Established MDM 10-19 Min Completed 09/02/2020 23704 Hospital Subsequent Care Level 3 Completed 09/02/2020 14711 Debridement Skin/Tissue Complete d 08/26/2020 96013 Debridement Skin/Tissue Complete d 08/04/2020 58836 Debridement Of Wound 20 SQ CM Co mpleted 07/28/2020 51544 Office/Outpatient Established Lo w MDM 20-29 Min Completed 07/28/2020 65475 Debridement Skin/Tissue Complete d 07/21/2020 78622 Office/Outpatient Established Lo w MDM 20-29 Min Completed 07/21/2020 02013 Debridement Skin/Tissue Complete d 06/24/2020 59353 Office/Outpatient New Low [facility] 30 -44 Minutes Completed Medical Devices Description No Information Available Encounters Type Date Location Provider Dx Diagnosis Office Visit 09/09/2020 1:30p [place] [facility] Casey Garner DPM L03.031 Cellulitis of right toe M79.674 Pain in right toe(s) Office Visit 07/28/2020 2:30p [place] [facility] Casey Garner DPM M20.41 Other hammer toe(s) (acquired), right foot M79.674 Pain in right toe(s) L89.893 Pressure ulcer of other site , stage 3 Office Visit 07/21/2020 2:30p [place] [facility] Casey Garner DPM L03.031 Cellulitis of right toe M79.674 Pain in right toe(s) L89.893 Pressure ulcer of other site , stage 3 Office Visit 06/24/2020 10:15a [place] [facility] Casey Garner DPM M20.40 Other hammer [...] ulcer of other site, 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 Created [address] [place] [address] [phone] Casey Garner DPM Created [address] [place] [address] [phone] Casey Garner DPM Created [address] [place] [phone] Casey Garner DPM Created [address] [id number] [phone] Casey Garner DPM BILATERAL CALLOUS AND HAMMERTOES/FOOT PAIN Created [address] [id number] [phone]
--- OUTSIDE RECORDS SUMMARY | 2020-12-10 16:24 | CCD | Continuity of Care Document ---
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 AUTM [phone] Problems Active Problems Provider Date Hammer toe Casey Stokes DPM Onset: 06/26/2020 Osteochondropathy Casey Stokes DPM Onset: 06/26/2020 Callosity Casey Stokes DPM Onset: 06/26/2020 Onychomycosis Casey Stokes DPM Onset: 06/26/2020 Cellulitis of toe of right foot Casey Stokes DPM Onset: 07/25/2020 Pain in limb Casey Stokes DPM Onset: 07/25/2020 Social History Type Date [...] Tablets 1 by mouth daily 14tabs Casey Stokes DPM 09/09/2020 Ammonium Lactate 12% Cream apply to feet daily 140gm Casey Stokes DPM 06/24/2020 Urea Nail 45% Gel apply to thick nail daily 28ml Casey Stokes DPM 06/24/2020 Spironolactone 25mg Tablets Unknown Buspirone [...] Available Procedures Date Code Description Status 09/09/2020 55232 Office/Outpatient Established SF MDM 10-19 Min Completed 09/02/2020 61215 Hospital Subsequent Care Level 3 Completed 09/02/2020 93521 Debridement Skin/Tissue Complete d 08/26/2020 99333 Debridement Skin/Tissue Complete d 08/04/2020 24381 Debridement Of Wound 20 SQ CM Co mpleted 07/28/2020 00186 Office/Outpatient Established Lo w MDM 20-29 Min Completed 07/28/2020 25289 Debridement Skin/Tissue Complete d 07/21/2020 68543 Office/Outpatient Established Lo w MDM 20-29 Min Completed 07/21/2020 62277 Debridement Skin/Tissue Complete d 06/24/2020 70628 Office/Outpatient New Low MDM 30 -44 Minutes Completed Medical Devices Description No Information Available Encounters Type Date Location Provider Dx Diagnosis Office Visit 09/09/2020 1:30p [place] [facility] Casey Stokes DPM L03.031 Cellulitis of right toe M79.674 Pain in right toe(s) Office Visit 07/28/2020 2:30p [place] [facility] Casey Stokes DPM M20.41 Other hammer toe(s) (acquired), right foot M79.674 Pain in right toe(s) L89.893 Pressure ulcer of other site , stage 3 Office Visit 07/21/2020 2:30p [place] [place] [facility] Casey Stokes, DPM L03.031 Cellulitis of right toe M79.674 Pain in right toe(s) L89.893 Pressure ulcer of other site , stage 3 Office Visit 06/24/2020 10:15a [place] [facility] Casey Stokes, DPM M20.40 Other hammer toe(s) (acquired), unspecified foot M84.879 Other disorders of continuit y of bone, unsp ankle and foot L84 Corns and callosities B35.1 Tinea unguium Assessments Date Code Description Provider 09/09/2020 L03.031 Cellulitis of right toe Casey Stokes, DPM 09/09/2020 M79.674 Pain in right toe(s) Casey mejia, DPM 08/26/2020 M79.674 Pain in right toe(s) Casey mejia, DPM 08/26/2020 L89.893 Pressure ulcer of other site, st age 2 Casey Stokes, DPM 07/28/2020 M20.41 Other hammer toe(s) (acquired), right foot Casey Stokes, DPM 07/28/2020 M79.674 Pain in right toe(s) Casey mejia, DPM 07/28/2020 L89.893 Pressure ulcer of other site, age 2 Casey Stokes, DPM 07/21/2020 L03.031 Cellulitis of right toe Casey Stokes, DPM 07/21/2020 M79.674 Pain in right toe(s) Casey mejia, DPM 07/21/2020 L89.893 Pressure ulcer of other site, age 2 Casey Stokes, DPM 06/24/2020 M20.40 Other hammer toe(s) (acquired), unspecified foot Casey Stokes, DPM 06/24/2020 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, unspecified ankle and foot Casey Stokes, DPM 06/24/2020 L84 Corns and callosities Casey Stokes, DPM 06/24/2020 B35.1 Tinea unguium Casey Stokes DPM Plan of Treatment No Information Available Functional Status Description No Information Available Mental Status Description No Information Available Referrals Refer to Dr Reason for Referral Status Appt Date [place] [address] [phone] Casey [place] [address] [phone] Casey Stokes DPM Created [place] [id number] [phone] Casey Stokes DPM BILATERAL CALLOUS AND HAMMERTOES/FOOT PAIN Created [place] [id number] [phone]
--- OUTSIDE RECORDS SUMMARY | 2020-12-10 16:25 | CCD ---
Author Author [facility] Organization [facility] Address Unknown Phone Unavailable Care Team Providers Care Waiter Name Role Phone Maring, Monty PA Unavailable Unavailable Maring, Monty PA Unavailable Unavailable Maring, Monty PA Unavailable Unavailable Maring, Monty PA Unavailable Unavailable Maring, Monty PA Unavailable Unavailable Maring, Monty PA Unavailable Unavailable Maring, Monty PA Unavailable Unavailable Maring, Monty PA Unavailable Unavailable Maring, Monty PA Unavailable Unavailable Maring, Monty PA Unavailable Unavailable Maring, Monty PA Unavailable Unavailable Maring, Monty PA Unavailable Unavailable Maring, Monty PA Unavailable Unavailable Maring, Monty PA Unavailable Unavailable Maring, Monty PA Unavailable Unavailable Maring, Monty PA Unavailable Unavailable Jered STOKES DPM Unavailable Unavailable Jered STOKES DPM Unavailable Unavailable MAJAK, R AMEENA DPM Unavailable Unavailable MAJAK, R AMEENA DPM Unavailable Unavailable MAJAK, R AMEENA DPM Unavailable Unavailable MAJAK, R AMEENA DPM Unavailable Unavailable MAJAK, R AMEENA DPM Unavailable Unavailable MAJAK, R AMEENA DPM Unavailable Unavailable MAJAK, R AMEENA DPM Unavailable Unavailable MAJAK, R AMEENA DPM Unavailable Unavailable MAJAK, R AMEENA DPM Unavailable Unavailable MAJAK, R AMEENA DPM Unavailable Unavailable MAJAK, R AMEENA DPM Unavailable Unavailable MAJAK, R AMEENA DPM Unavailable Unavailable MAJAK, R AMEENA DPM Unavailable Unavailable MAJAK, R AMEENA DPM Unavailable Unavailable MAJAK, R AMEENA DPM Unavailable Unavailable MAJAK, R AMEENA DPM Unavailable Unavailable MAJAK, R AMEENA DPM Unavailable Unavailable MAJAK, R AMEENA DPM Unavailable Unavailable MAJAK, R AMEENA DPM Unavailable Unavailable MAJAK, R AMEENA DPM Unavailable Unavailable MAJAK, R AMEENA DPM Unavailable Unavailable MAJAK, R AMEENA DPM Unavailable Unavailable MAJAK, R AMEENA DPM Unavailable Unavailable MAJAK, R AMEENA DPM Unavailable Unavailable MAJAK, R AMEENA DPM Unavailable Unavailable MAJAK, R AMEENA DPM Unavailable Unavailable MAJAK, R AMEENA DPM Unavailable Unavailable MAJAK, R AMEENA DPM Unavailable Unavailable MAJAK, R AMEENA DPM Unavailable Unavailable Re-disclosure Warning The records that you are about to access may contain information from federally-assisted alcohol or drug abuse programs. If such information is present, then the following federally mandated warning applies: This information has been disclosed to you from records protected by federal confidentiality rules (42 CFR part 2). The federal rules prohibit you from making any further disclosure of this information unless further disclosure is expressly permitted by the written consent of the person to whom it pertains or as otherwise permitted by 42 CFR part 2. A general authorization for the release of medical or other information is NOT sufficient for this purpose. The Federal rules restrict any use of the information to criminally investigate or prosecute any alcohol or drug abuse patient.The records that you are about to access may contain highly sensitive health information, the redisclosure of which is protected by Article 27-F of the [facility] Public Health law. If you continue you may have access to information: Regarding HIV / AIDS; Provided by facilities licensed or operated by the [facility] Office of Mental Health; or Provided by the [facility] Office for People With Developmental Disabilities. If such information is present, then the following [facility] mandated warning applies: This information has been disclosed to you from confidential records which are protected by state law. State law prohibits you from making any further disclosure of this information without the specific written consent of the person to whom it pertains, or as otherwise permitted by law. Any unauthorized further disclosure in violation of state law may result in a fine or fdc sentence or both. A general authorization for the release of medical or other information is NOT sufficient authorization for further disc losure. Family History Family Member Name Family Member Gender Family Member Status Date o f Status Description Data Source(s) Unknown Male Problem [facility] ([facility]) Encounters Encounter Providers Location Date Indications Data Source(s ) Office Visit Attender: AMEENA STOKES [facility] Office 10/26 11:00:00 AM EDT [facility] ([facility] Office Visit Attender: AMEENA STOKES [facility] Office 04/2020 01:00:00 PM EDT [facility] ([facility] Outpatient Attender: AMEENA STOKES [facility] 08/25 01:30:00 PM EDT [facility] ([facility] Outpatient Attender: AMEENA STOKES [facility] 04/2020 02:30:00 PM EDT [facility] ([facility] Outpatient Attender: AMEENA STOKES [facility] Office 06/26 02:30:00 PM EDT [facility] ([facility] Outpatient Attender: Monty MORENO 07/21/19 06:32:36 PM EDT - 07/20/2020 06:47:25 PM EDT [facility] ([facility] ) Outpatient Attender: Monty MORENO 07/04/19 03:03:14 PM EDT - 07/03/2020 03:19:35 PM EDT [facility] ([facility] ) Outpatient Attender: AMEENA STOKES DPM [facility] 05/28 10:15:00 AM EDT [facility] ([facility] Medications Medication Brand Name Start Date Product Form Dose Route Admi nistrative Instructions Pharmacy Instructions Status Indications Reaction Description Data Source(s) Clindamycin 300 MG Oral Capsule Clindamycin HCL 09/30/2020 12:00:00 A M EDT ORAL active [facility] ([facility] Fluconazole 100 MG Oral Tablet [Diflucan] Diflucan 09/09/2020 1 2:00:00 AM EDT ORAL active [facility] ([facility] Urea 0.45 MG/MG Topical Gel Urea Nail 06/24/2020 12:00:00 AM EDT active [facility] ([facility] ammonium lactate 120 MG/ML Topical Cream Ammonium Lactate 06/24/2020 12:00:00 AM EDT active [facility] ([facility] Insurance Providers Payer name Policy type / Coverage type Policy ID Covered green party ID Covered green party's relationship to ramirez Policy Ramirez Plan Information [facility] [id number] SP [id number] U [id number] Spouse [id number] U [id number] Spouse [id number] [facility] HUMAN [id number] SP [id number] [facility] HUMANA [id number] SP [id number] Spouse [id number] Prime - [employer] Health Maintenance Organization (HMO) [id number] Family Dependent [employer]ALTH[employer]/ AD P [id number] P [id number] [employer]/ AD P [id number] P [id number] [facility] [id number] [id number] SELFPAY 5 UNAVAILABLE 1 UNAVAILA BLE 6 [id number] 1 [id number] [phone] [facility] O [id number] S [id number] [facility] O [id number] U [id number] O UNAVAILABLE UNAVAILA BLE [facility] [id number] SP [id number] [facility] O [id number] S [id number] [facility] Maintenance Organization ([facility]) [id number] Family Dependent 0 [id number] [facility] [id number] SP [id number] SELF PAY UNAVAILABLE SP UNAVAILA BLE Problems, Conditions, and Diagnoses Code Display Name Description Problem Type Effective Dates Data Source(s) M79.674 Pain in limb Pain in limb Problem 07/25/2020 12:00:00 A M EDT [facility] ([facility] L03.031 Cellulitis of toe of right foot Cellulitis of toe of r ight foot Problem 07/25/2020 12:00:00 AM EDT [facility] ([facility] B35.1 Onychomycosis Onychomycosis Problem 06/26/2020 12:00:00 AM EDT [facility] ([facility] L84 Callosity Callosity Problem 06/26/2020 12:00:00 AM ED T [facility] ([facility] M84.879 Osteochondropathy Osteochondropathy Problem 06/26/2020 12:00:00 AM EDT [facility] ([facility] M20.40 Hammer toe Hammer toe Problem 06/26/2020 12:00:00 AM ED T [facility] ([facility] Surgeries/Procedures Procedure Description Date Indications Data Source(s) Amputation Toe MP JT 10/26/2020 12:00:00 AM EDT [facility] ([facility] DEBRIDEMENT SUBCUTANEOUS TISSUE 20 SQ CM/< 10/12/2020 12:00:00 AM EDT [facility] ([facility] DEBRIDEMENT SUBCUTANEOUS TISSUE 20 SQ CM/< 09/30/2020 12:00:00 AM EDT [facility] ([facility] DEBRIDEMENT SUBCUTANEOUS TISSUE 20 SQ CM/< 09/16/2020 12:00:00 AM EDT [facility] ([facility] OFFICE OUTPATIENT VISIT 10 MINUTES 09/09/2020 12:00:00 AM EDT [facility] ([facility] DEBRIDEMENT SUBCUTANEOUS TISSUE 20 SQ CM/< 09/02/2020 12:00:00 AM EDT [facility] ([facility] C[facility]/DAY 35 MINUTES 09/02/2020 12:00:00 AM EDT [facility] ([facility] DEBRIDEMENT SUBCUTANEOUS TISSUE 20 SQ CM/< 08/26/2020 12:00:00 AM EDT [facility] ([facility] DEBRIDEMENT OPEN WOUND 20 SQ CM/< 08/04/2020 12:00:00 AM EDT [facility] ([facility] DEBRIDEMENT SUBCUTANEOUS TISSUE 20 SQ CM/< 07/28/2020 12:00:00 AM EDT [facility] ([facility] OFFICE OUTPATIENT VISIT 15 MINUTES 07/28/2020 12:00:00 AM EDT [facility] ([facility] DEBRIDEMENT SUBCUTANEOUS TISSUE 20 SQ CM/< 07/21/2020 12:00:00 AM EDT [facility] ([facility] OFFICE OUTPATIENT VISIT 15 MINUTES 07/21/2020 12:00:00 AM EDT [facility] ([facility] OFFICE OUTPATIENT NEW 30 MINUTES 06/24/2020 12:00:00 A M EDT [facility] ([facility] Results ID Date Data Source [id number] 10/28/2020 12:13:00 PM EDT [facility] ([facility] Name Value Range Interpretation Code Description Data Georgie rce(s) Supporting Document(s) Glucose, Fasting 96 mg/dL 70-100 [facility] ([facility] Blood Urea Nitrogen 18 mg/dL 7-18 [facility] ([facility] Creatinine For GFR 0.70 mg/dL 0.55-1.30 [facility] ([facility] Glomerular Filtration Rate Laboratory test result [facility] ([facility] <content>Units are mL/min/1.73 m2</content>
<content></content>
<content>Chronic Kidney Disease Staging per NKF:</content>
<content></content>
<content>Stage I & II GFR >=60 Normal to Mildly Decreased</content>
<content>Stage III GFR 30- 59 Moderately Decreased</content>
<content>Stage IV GFR 15-29 Severely Decreased</content>
<content>Stage V GFR <15 Very Little GFR Left</content>
<content>ESRD GFR <15 on VIDEOGAME TESTER</content>
<content></content> Sodium Level 136 meq/L 136-145 [facility] ([facility] Potassium Serum 5.7 meq/L 3.5-5.1 Above high normal ME [facility]ENT ([facility] Chloride Level 104 meq/L 98-107 [facility] ([facility] Carbon Dioxide Level 28 meq/L 21-32 [facility] ([facility] Anion Gap 4 meq/L 8-16 [facility] ([facility] Ast/Sgot 26 U/L 7-37 [facility] ([facility] Calcium Level 8.9 mg/dL 8.5-10.1 [facility] ([facility] Alt/SGPT 32 U/L 12-78 [facility] ([facility] Alkaline Phosphatase 98 U/L 45-117 [facility] ([facility] Total Protein 6.7 GM/DL 6.4-8.2 [facility] ([facility] Bilirubin,Total 0.4 mg/dL 0.2-1.0 [facility] ([facility] Albumin 2.4 GM/DL 3.2-5.2 [facility] ([facility] Albumin/Globulin Ratio 0.6 1.2-2.2 [facility] ([facility] ID Date Data Source [id number] 10/26/2020 12:49:00 PM EDT [facility] ([facility] Name Value Range Interpretation Code Description Data Georgie rce(s) Supporting Document(s) Surgical pathology study Laboratory test result [facility] ([facility] FINAL DIAGNOSIS Digit, right 2nd toe, amputation: Skin with ulcer and chronic inflammation, with reparative changes in underlying bone. No evidence for acute osteomyelitis. 10/28/2020 - 1227 CLINICAL DIAGNOSIS Acute osteomyelitis 10/27/2020 - 1304 GROSS DIAGNOSIS Received in formalin labeled "right second toe" and consists of a moore-white digit measuring 5.5 cm. from tip to proximal bone resection. An ulcerated skin surface measuring 0.9 x 0.3 cm. is noted on one aspect the toe. Potash Flaker section in one block after decalcification. -SVY 10/27/2020 - 1304 Signed ZARA SMITH MD 10/28/2020 1349 ID Date Data Source [id number] 10/24/2020 12:48:00 PM EDT [facility] ([facility] Name Value Range Interpretation Code Description Data Georgie rce(s) Supporting Document(s) Glucose, Fasting 170 mg/dL 70-100 Above high normal M [facility]ENT ([facility] Blood Urea Nitrogen 17 mg/dL 7-18 [facility] ([facility] Creatinine For GFR 0.85 mg/dL 0.55-1.30 [facility] ([facility] Sodium Level 136 meq/L 136-145 [facility] ([facility] Glomerular Filtration Rate Laboratory test result [facility] ([facility] <content>Units are mL/min/1.73 m2</content>
<content></content>
<content>Chronic Kidney Disease Staging per NKF:</content>
<content></content>
<content>Stage I & II GFR >=60 Normal to Mildly Decreased</content>
<content>Stage III GFR 30- 59 Moderately Decreased</content>
<content>Stage IV GFR 15-29 Severely Decreased</content>
<content>Stage V GFR <15 Very Little GFR Left</content>
<content>ESRD GFR <15 on VIDEOGAME TESTER</content>
<content></content> Potassium Serum 5.1 meq/L 3.5-5.1 [facility] ([facility] Chloride Level 102 meq/L 98-107 [facility] ([facility] Anion Gap 7 meq/L 8-16 [facility] ([facility]uilera[facility] Carbon Dioxide Level 27 meq/L 21-32 [facility] ([facility] Ast/Sgot 33 U/L 7-37 [facility] ([facility] Calcium Level 8.7 mg/dL 8.5-10.1 [facility] ([facility] Alkaline Phosphatase 131 U/L 45-117 Above high normal [facility] ([facility] Alt/SGPT 37 U/L 12-78 [facility] ([facility] Total Protein 7.6 GM/DL 6.4-8.2 [facility] ([facility] Bilirubin,Total 0.5 mg/dL 0.2-1.0 [facility] ([facility] Albumin 2.5 GM/DL 3.2-5.2 [facility] ([facility] Albumin/Globulin Ratio 0.5 1.2-2.2 [facility] ([facility] ID Date Data Source [id number] 10/15/2020 06:16:00 PM EDT [facility] Name Value Range Interpretation Code Description Data Georgie rce(s) Supporting Document(s) SARS coronavirus 2 RNA [Presence] in Res piratory specimen by DOLORES with probe detection NEGATIVE [facility] This lab was ordered by [facility] a nd reported by [facility]. ID Date Data Source [id number] 09/02/2020 08:33:00 PM EDT [facility] Name Value Range Interpretation Code Description Data Georgie rce(s) Supporting Document(s) SARS coronavirus 2 RNA [Presence] in Res piratory specimen by DOLORES with probe detection NEGATIVE [facility] This lab was ordered by [facility] a nd reported by [facility]. ID Date Data Source [id number] 08/09/2020 02:59:00 PM EDT [facility] Name Value Range Interpretation Code Description Data Georgie rce(s) Supporting Document(s) SARS-CoV-2 (COVID 19) NEGATIVE - SARS-CoV-2 (COVID19) [facility] This lab was ordered by [facility] a nd reported by [facility]. ID Date Data Source [id number] 08/09/2020 02:59:00 PM EDT [facility] Name Value Range Interpretation Code Description Data Georgie rce(s) Supporting Document(s) SARS coronavirus 2 RNA [Presence] in Res piratory specimen by DOLORES with probe detection NEGATIVE [facility] This lab was ordered by [facility] a nd reported by [facility]. ID Date Data Source [id number] 07/28/2020 11:06:00 PM EDT [facility] Name Value Range Interpretation Code Description Data Georgie rce(s) Supporting Document(s) SARS coronavirus 2 RNA [Presence] in Res piratory specimen by DOLORES with probe detection NEGATIVE [facility] This lab was ordered by [facility] a nd reported by [facility]. Procedure Social History No Information Vital Signs ID Date Data Source UNK Name Value Range Interpretation Code Description Data Source(s) Heart rate 85 /min 85 /min [facility] ([facility] Body mass index (BMI) [Ratio] 24.3 kg/m2 24.3 k g/m2 [facility] ([facility] Body height 67 [in_i] 67 [in_i] [facility] ([facility] 5'7" Body weight 155.00 [lb_av] 155.00 [lb_av] [facility] T ([facility] Systolic blood pressure 160 mm[Hg] 160 mm[Hg] M [facility] ([facility] Diastolic blood pressure 94 mm[Hg] 94 mm[Hg] [facility] ([facility] Body height 67 [in_i] 67 [in_i] [facility] ([facility] 5'7" Body weight 168.00 [lb_av] 168.00 [lb_av] [facility] T ([facility] Heart rate 80 /min 80 /min [facility] ([facility] Body mass index (BMI) [Ratio] 26.3 kg/m2 26.3 k g/m2 [facility] ([facility] Diastolic blood pressure 74 mm[Hg] 74 mm[Hg] [facility] ([facility] Systolic blood pressure 110 mm[Hg] 110 mm[Hg] M [facility] ([facility] Body weight 168.00 [lb_av] 168.00 [lb_av] MEDEN T ([facility] Body height 67 [in_i] 67 [in_i] [facility] ([facility] 5'7" Systolic blood pressure 110 mm[Hg] 110 mm[Hg] M [facility] ([facility] Heart rate 69 /min 69 /min [facility] ([facility] Diastolic blood pressure 86 mm[Hg] 86 mm[Hg] JENNIFER ([facility] Body mass index (BMI) [Ratio] 26.3 kg/m2 26.3 k g/m2 JENN[facility] ([facility]
[2020-12-10 17:10] LABS: HEMOGLOBIN 12.8 g/dl (12.0-15.5); MEAN CORPUSCULAR HEMOGLOBIN 33.8 pg (27.0-33.0); MEAN CORPUSCULAR HGB CONC 34.6 g/dl (32.0-36.5); MEAN CORPUSCULAR VOLUME 97.6 fl (80.0-96.0); PLATELET COUNT, AUTOMATED 354 10^3/uL (150-450); RED BLOOD COUNT 3.79 10^6/uL (4.00-5.40)
[2020-12-10 17:14] LABS: WHITE BLOOD COUNT 34.1 10^3/uL (4.0-10.0)
[2020-12-10] MEDS ORDERED: NS 1,000 ML IV ONE (17:15)
[2020-12-10 17:30] LABS: ALBUMIN 2.2 GM/DL (3.2-5.2); ALT/SGPT 30 U/L (12-78); BILIRUBIN,DIRECT 0.1 MG/DL (0.0-0.2); BLOOD UREA NITROGEN 17 MG/DL (7-18); CALCIUM LEVEL 7.6 MG/DL (8.5-10.1); CARBON DIOXIDE LEVEL 24 MEQ/L (21-32); CHLORIDE LEVEL 103 MEQ/L (98-107); CREATININE FOR GFR 0.64 MG/DL (0.55-1.30); GLOMERULAR FILTRATION RATE > 60.0 (>51); GLUCOSE, FASTING 88 MG/DL (70-100); LIPASE 87 U/L (73-393); POTASSIUM SERUM 3.7 MEQ/L (3.5-5.1); SODIUM LEVEL 136 MEQ/L (136-145); TOTAL PROTEIN 6.3 GM/DL (6.4-8.2)
--- NOTE | 2020-12-10 17:52 | REP ---
INDICATION: s/p r 2nd toe amputation, erythema, 3rd toe erythema COMPARISON: None. TECHNIQUE: AP, lateral, bilateral oblique views right foot. 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 Osseous structures demonstrate moderate osteoarthritic degenerative changes predominately involving the tarsometatarsal joints and midfoot. No evidence for acute fracture or dislocation. No significant focal periosteal reaction. No free air. IMPRESSION: Amputation and arthritic degenerative changes. No evidence for acute process by radiographic evaluation. <Electronically signed by Juventino Cai > 12/10/20 8587
[2020-12-10 18:00] LABS: LYMPHOCYTES 4 % (16-44); METAMYELOCYTES 1 % (0-0); MONOCYTES 4 % (0-5); MYELOCYTES 3 % (0-0); NEUTROPHILS 86 % (28-66); PLATELET ESTIMATE NORMAL (NORMAL)
[2020-12-10 18:01] LABS: TOXIC VACUOLATION 1+
--- OUTSIDE RECORDS SUMMARY | 2020-12-10 18:08 | CCD ---
Author Author [facility] Organization [facility] Address Unknown Phone Unavailable Care Team Providers Care House Registry Rn Name Role Phone Maring, Monty PA Unavailable [...] is protected by Article 27-F of the [facility] Public Health law. If you continue you may have access to information: Regarding HIV / AIDS; Provided by facilities licensed or operated by the [facility] Office of Mental Health; or Provided by the [facility] Office for People With Developmental Disabilities. If such information is present, then the following [facility] mandated warning applies: This information has been [...] law may result in a fine or longterm sentence or both. A general authorization for the release of medical or other information is NOT sufficient authorization for further disc losure. Family History Family Member Name Family Member Gender Family Member Status Date o f Status Description Data Source(s) Unknown Male Problem [facility] ([facility]) Encounters Encounter Providers Location Date Indications Data Source(s ) Office Visit Attender: AMEENA STOKES [facility] Office 10/26 11:00:00 AM EDT [facility] ([facility] Office Visit Attender: AMEENA STOKES [facility] Office 04/2020 01:00:00 PM EDT [facility] ([facility] Outpatient Attender: AMEENA STOKES [facility] Office 08/25 01:30:00 PM EDT [facility] ([facility] Outpatient Attender: AMEENA STOKES [facility] Office 04/2020 02:30:00 PM EDT [facility] ([facility] Outpatient Attender: AMEENA STOKES [facility] Office 06/26 02:30:00 PM EDT [facility] ([facility] Outpatient Attender: Monty MORENO 07/21/19 06:32:36 PM EDT - 07/20/2020 06:47:25 PM EDT [facility] ([facility] ) Outpatient Attender: Monty MORENO 07/04/19 03:03:14 PM EDT - 07/03/2020 03:19:35 PM EDT [facility] ([facility] ) Outpatient Attender: AMEENA STOKES DPM [facility] [place] [facility] [place] 05/28 10:15:00 AM EDT [facility] ([facility] Medications Medication Brand Name Start Date Product Form Dose Route Admi nistrative Instructions Pharmacy Instructions Status Indications Reaction Description Data Source(s) Clindamycin 300 MG Oral Capsule Clindamycin HCL 09/30/2020 12:00:00 A M EDT ORAL active [facility] ([facility] Fluconazole 100 MG Oral Tablet [Diflucan] Diflucan 09/09/2020 1 2:00:00 AM EDT ORAL active [facility] ([facility] Urea 0.45 MG/MG Topical Gel Urea Nail 06/24/2020 12:00:00 AM EDT active [facility] ([facility] ammonium lactate 120 MG/ML Topical Cream Ammonium Lactate 06/24/2020 12:00:00 AM EDT active [facility] ([facility] Insurance Providers Payer name Policy type / Coverage type Policy ID Covered alliance party ID Covered alliance party's relationship to ramirez Policy Ramirez Plan Information [facility] [id number] SP [id number] U [id number] Spouse [id number] U [id number] Spouse [id number] [facility] HUMAN [id number] SP [id number] [facility] HUMAN [id number] SP [id number] / [id number] Spouse [id number] [facility] [employer] Health Maintenance Organization (HMO) [id number] Family Dependent HEALTHNET/ AD P [id number] P [id number] [employer]/ AD P [id number] P [id number] [facility] [id number] [id number] SELFPAY 5 UNAVAILABLE 1 UNAVAILA BLE 6 [id number] 1 [id number] [facility] O [id number] S [id number] [facility] O [id number] U [id number] O UNAVAILABLE UNAVAILA BLE [facility] [id number] SP [id number] [facility] O [id number] S [id number] [facility] [place] Organization [place] [place] [id number] Family Dependent 0 [id number] [facility] [id number] SP [id number] SELF PAY UNAVAILABLE SP UNAVAILA BLE Problems, Conditions, and Diagnoses Code Display Name Description Problem Type Effective Dates Data Source(s) M79.674 Pain in limb Pain in limb Problem 07/25/2020 12:00:00 A M EDT [facility] ([facility] L03.031 Cellulitis of toe of right foot Cellulitis of toe of r ight foot Problem 07/25/2020 12:00:00 AM EDT [facility] ([facility] B35.1 Onychomycosis Onychomycosis Problem 06/26/2020 12:00:00 AM EDT [facility] ([facility] L84 Callosity Callosity Problem 06/26/2020 12:00:00 AM ED T [facility] ([facility] M84.879 Osteochondropathy Osteochondropathy Problem 06/26/2020 12:00:00 AM EDT [facility] ([facility] M20.40 Hammer toe Hammer toe Problem 06/26/2020 12:00:00 AM ED T [facility] ([facility] Surgeries/Procedures Procedure Description Date Indications Data Source(s) Amputation Toe MP JT 10/26/2020 12:00:00 AM EDT [facility] ([facility] DEBRIDEMENT SUBCUTANEOUS TISSUE 20 SQ [...] CM/< 09/02/2020 12:00:00 AM EDT [facility] ([facility]/DAY 35 MINUTES 09/02/2020 12:00:00 AM [...] 15 MINUTES 07/21/2020 12:00:00 AM EDT [facility] ([facility] OFFICE OUTPATIENT NEW 30 MINUTES 06/24/2020 12:00:00 A M EDT [facility] ([facility] Results ID Date Data Source [id number] 10/28/2020 12:13:00 PM EDT [facility] ([facility] Name Value Range Interpretation Code Description Data Georgie rce(s) Supporting Document(s) Glucose, Fasting 96 mg/dL 70-100 [facility] ([facility] Blood Urea Nitrogen 18 mg/dL 7-18 [facility] ([facility] Creatinine For GFR 0.70 mg/dL 0.55-1.30 [facility] ([facility] Glomerular Filtration Rate Laboratory test result [facility] ([facility] <content>Units are mL/min/1.73 m2</content>
<content></content>
<content>Chronic Kidney Disease Staging per NKF:</content>
<content></content>
<content>Stage I & II GFR >=60 Normal to Mildly Decreased</content>
<content>Stage III GFR 30- 59 Moderately Decreased</content>
<content>Stage IV GFR 15-29 Severely Decreased</content>
<content>Stage V GFR <15 Very Little GFR Left</content>
<content>ESRD GFR <15 on ART LIBRARIAN</content>
<content></content> Sodium Level 136 meq/L 136-145 [facility] ([facility] Potassium Serum 5.7 meq/L 3.5-5.1 Above high normal ME DENT ([facility] Chloride Level 104 meq/L 98-107 [facility] [...] ([facility] ID Date Data Source [id number] 10/26/2020 12:49:00 PM EDT [facility] ([facility] Name [...] is noted on one aspect the toe. Hand Alterations Seamstress section in one block after decalcification. -SVY 10/27/2020 - 1304 Signed ZARA SMITH MD 10/28/2020 1349 ID Date Data Source [id number] 10/24/2020 12:48:00 PM EDT [facility] ([facility] [...] Little GFR Left</content>
<content>ESRD GFR <15 on ART LIBRARIAN</content>
<content></content> Potassium Serum 5.1 meq/L 3.5-5.1 [facility] ([facility] Chloride Level 102 meq/L 98-107 [facility] ([facility] Anion Gap 7 meq/L 8-16 [facility] ([facility] Carbon Dioxide Level 27 meq/L 21-32 [facility] ([facility] Ast/Sgot 33 U/L 7-37 [facility] ([facility] Calcium Level 8.7 mg/dL 8.5-10.1 [facility] ([facility] Alkaline Phosphatase 131 U/L 45-117 Above high normal [facility] ([facility] Alt/SGPT 37 U/L 12-78 [facility] ([facility] Total Protein 7.6 GM/DL 6.4-8.2 [facility] ([facility] Bilirubin,Total 0.5 mg/dL 0.2-1.0 [facility] ([facility] Albumin 2.5 GM/DL 3.2-5.2 [facility] ([facility] Albumin/Globulin Ratio 0.5 1.2-2.2 [facility] ([facility] ID Date Data Source [id number] 10/15/2020 06:16:00 PM EDT [facility] Name Value Range Interpretation Code Description Data Georgie rce(s) Supporting Document(s) SARS coronavirus 2 RNA [Presence] in Res piratory specimen by DOLORES with probe detection NEGATIVE [facility] This lab was ordered by [facility] a nd reported by [facility]. ID Date Data Source [id number] 09/02/2020 08:33:00 PM EDT [facility] Name Value Range Interpretation Code Description Data Georgie rce(s) Supporting Document(s) SARS coronavirus 2 RNA [Presence] in Res piratory specimen by DOLORES with probe detection NEGATIVE [facility] This lab was ordered by [facility] a nd reported by [facility]. ID Date Data Source [id number] 08/09/2020 02:59:00 PM EDT [facility] Name Value Range Interpretation Code Description Data Georgie rce(s) Supporting Document(s) SARS-CoV-2 (COVID 19) NEGATIVE - SARS-CoV-2 (COVID19) [facility] This lab was ordered by [facility] a nd reported by [facility]. ID Date Data Source [id number] 08/09/2020 02:59:00 PM EDT [facility] Name Value Range Interpretation Code Description Data Georgie rce(s) Supporting Document(s) SARS coronavirus 2 RNA [Presence] in Res piratory specimen by DOLORES with probe detection NEGATIVE [facility] This lab was ordered by [facility] a nd reported by [facility]. ID Date Data Source [id number] 07/28/2020 11:06:00 PM EDT [facility] Name Value Range Interpretation Code Description Data Georgie rce(s) Supporting Document(s) SARS coronavirus 2 RNA [Presence] in Res piratory specimen by DOLORES with probe detection NEGATIVE [facility] This lab was ordered by [facility] a nd reported by [facility]. Procedure Social History No Information Vital Signs ID Date Data Source UNK Name Value Range Interpretation Code Description Data Source(s) Heart rate 85 /min 85 /min [facility] ([facility] Body mass index (BMI) [Ratio] 24.3 kg/m2 24.3 k g/m2 [facility] ([facility] Body height 67 [in_i] 67 [in_i] [facility] ([facility] 5'7" Body weight 155.00 [lb_av] 155.00 [lb_av] MEDEN T ([facility] Systolic blood pressure 160 mm[Hg] 160 mm[Hg] M EDENT ([facility] Diastolic blood pressure 94 mm[Hg] 94 mm[Hg] [facility] ([facility] Body height 67 [in_i] 67 [in_i] [facility] ([facility] 5'7" Diastolic blood pressure 74 mm[Hg] 74 mm[Hg] [facility] ([facility] Body weight 168.00 [lb_av] 168.00 [lb_av] MEDEN T ([facility] Heart rate 80 /min 80 /min [facility] ([facility] Body mass index (BMI) [Ratio] 26.3 kg/m2 26.3 k g/m2 [facility] ([facility] Systolic blood pressure 110 mm[Hg] 110 mm[Hg] M EDENT ([facility] Body height 67 [in_i] 67 [in_i] [facility] ([facility] 5'7" Heart rate 69 /min 69 /min [facility] ([facility] Body mass index (BMI) [Ratio] 26.3 kg/m2 26.3 k g/m2 [facility] ([facility] Body weight 168.00 [lb_av] 168.00 [lb_av] MEDEN T ([facility] Systolic blood pressure 110 mm[Hg] 110 mm[Hg] M TRAVIS ([facility] Diastolic blood pressure 86 mm[Hg] 86 mm[Hg] JENNIFER ([facility]
[2020-12-10] MEDS ORDERED: cefTRIAXone SOD 2 GM in D5W MINI-BAG PLUS 50 ML IV ONE (18:20)
[2020-12-10] MEDS: GASTROGRAFIN SOLUTION 30ML PO SCH ×2 (19:00→19:26)
[2020-12-10 19:17] LABS: CK-MB VALUE MASS < 1.0 NG/ML (<3.6); CPK CREATINE PHOSPHOKINASE 31 U/L (26-192); MB/CK RELATIVE INDEX 3.23 (< OR =4); NT-PRO BNP 511 PG/ML (<125); TROPONIN I < 0.02 NG/ML (< 0.10)
[2020-12-10] MEDS ORDERED: PROM75TA2 PO (19:48)
[2020-12-10] MEDS ORDERED: PRED5TA PO (19:48)
[2020-12-10] MEDS ORDERED: HOME MED LIST COMPLETE! XX SCH (19:50)
[2020-12-10] MEDS ORDERED: ISOVUE-370 76% 100ML VIAL As Ordered ONE (20:15)
--- NOTE | 2020-12-10 21:39 | REPVR ---
PROCEDURE INFORMATION: Exam: CT Abdomen And Pelvis With Contrast Exam date and time: 12/10/2020 8:18 PM Age: 54 years old Clinical indication: Abdominal pain; Localized; Lower; Additional info: Lower abd pain. H/o gastric sleeve TECHNIQUE: Imaging protocol: Computed tomography of the abdomen and pelvis with contrast. Radiation optimization: All CT scans at this facility use at least one of these dose optimization techniques: automated exposure control; mA and/or kV adjustment per patient size (includes targeted exams where dose is matched to clinical indication); or iterative reconstruction. Contrast material: ISOVUE 370; Contrast volume: 100 ml; Contrast route: INTRAVENOUS (IV); Other contrast: Oral, gastrographin, 600ml; COMPARISON: CT Chest with contrast 09/04/2020 9:58 AM FINDINGS: Lungs: Minimal bibasilar fibro-atelectatic change. Liver: Normal. No mass. Gallbladder and bile ducts: Normal. No calcified stones. No ductal dilation. Pancreas: Normal. No ductal dilation. Spleen: Absent spleen with surgical clips and sutures in the area. Adrenal glands: Normal. No mass. Kidneys and ureters: There are bilateral areas decreased renal enhancement consistent with pyelonephritis. There are left renal cysts measuring up to 2.3 cm with a Hounsfield measurement of 19 consistent with simple cysts. No follow-up imaging is recommended. Stomach and bowel: Status post gastric sleeve. Minimal colonic diverticulosis without diverticulitis. Appendix: There are no changes of appendicitis. A normal appendix is not seen. Intraperitoneal space: Unremarkable. No free air. No significant fluid collection. Vasculature: There is mild calcification of the abdominal aorta with extension into the iliac arteries. Incidental note of an accessory retroaortic left renal vein. Lymph nodes: Unremarkable. No enlarged lymph nodes. Urinary bladder: The urinary bladder is decompressed but appears grossly normal. Reproductive: Status post hysterectomy. Bones/joints: Unremarkable. No acute fracture. Soft tissues: Unremarkable. IMPRESSION: 1. Status post gastric sleeve, splenectomy and hysterectomy. 2. Focal of poor bilateral renal enhancement consistent with pyelonephritis. 3. Minimal colonic diverticulosis without diverticulitis. 4. Otherwise negative CT abdomen/pelvis. COMMENTS: Consistent with the [employer]'s Incidental Findings Committee white paper (J Am Kendra Radiol 2018): Any incidental renal lesion less than 1 cm or classified as too small to characterize, or any incidental cystic renal lesion characterized as simple-appearing, is likely benign. No follow-up imaging is recommended for these lesions per consensus recommendations based on imaging criteria. Electronically signed by: Onesimo Nunez On 12/10/2020 21:39:07 PM
[2020-12-10] MEDS ORDERED: MUPIROCIN 2% OINT 22 GM TUBE TOP STA (21:57)
[2020-12-10] MEDS ORDERED: MUPIROCIN 2% OINT 22 GM TUBE TOP SCH (22:00)
[2020-12-10] MEDS ORDERED: ACETAMINOPHEN TAB 650MG DOSE (2X325MG) PO PRN (22:40)
[2020-12-10] MEDS ORDERED: MAALOX 30 ML SUSP *UDC PO PRN (22:40)
[2020-12-10] MEDS ORDERED: MOM 30ML SUSPENSION UDC PO PRN (22:40)
--- NOTE | 2020-12-10 22:43 | HPEPDOC ---
[facility] Medical History & Physical Date of Admission Dec 10, 2020 Date of Service: Dec 10, 2020 Attending Physician: MALACHI GLEASON MD History and Physical CHIEF COMPLAINT: [54 y/o female c/o lower back, lower abdominal pain x2 days] HISTORY OF PRESENT ILLNESS: [This is a 54 y/o female who presents to our ED for evaluation of lower back and lower abdominal pain that began two days ago. Patients states that her pain comes in waves and had no obvious precipitating event such as injury. Patient states that she has had some associated subjective fevers that she has took tylenol. Patient states that she was worried she had a UTI so decided to come to the ED for evaluation. Patient, at the time of my exam, denies any current fevers, chills, chest pain, sob, cough, dysuria, hematuria, pedal edema, syncope, paresthesia. Patient also complaining of some erythema of a chronic right third toe wound. P atient tells me that she has not noticed any drainage from the area.] PAST MEDICAL HISTORY: 1. [ITP s/p splenectomy]. 2. [HTN]. 3. [Hypothyroidism 4. Uterine ca s/p hysterectomy]. PAST SURGICAL HISTORY: 1. [Splenectomy]. 2. [Appendectomy]. 3. [Gastric sleeve 4. Hysterectomy]. SOCIAL HISTORY: Tobacco use:[Current smoker] ETOH: [Denies] Illicit drug use: [Denies] FAMILY HISTORY: Reviewed - none pertinent ALLERGIES: Please see below. REVIEW OF SYSTEMS: CONSTITUTIONAL: [Denies fevers, chills]. HEENT: [Denies uri sx]. CARDIOVASCULAR: [Denies chest pain, palpitations]. RESPIRATORY: Denies sob, cough. GASTROINTESTINAL: [Denies n/v/d/c. Admits to lower abd pain]. GENITOURINARY: [Denies dysuria]. SKIN: [See HPI]. MUSCULOSKELETAL: [Admits to low back pain. Denies acute joint pain]. NEUROLOGICAL: [Denies syncope, paresthesias]. ENDOCRINE: [Denies hx of DM]. HEMATOLOGIC/LYMPHATIC: [Hx of ITP]. HOME MEDICATIONS: Please see below. PHYSICAL EXAMINATION: VITAL SIGNS: Please see below. GENERAL APPEARANCE: [This is a 54 y/o female who appears her stated age. She is seated comfortably in bed and oriented to all questioning]. HEENT: [No mass or lesion. EOMI. No scleral icterus. Nares patent. Oral mucosa moist]. CARDIOVASCULAR: [Regular rate, rhythm. No murmurs, rubs, gallops]. LUNGS: [Good air flow b/l. No wheezing, rales, rhonchi]. ABDOMEN: [Soft, nonteder]. MUSCULOSKELETAL: [No joint deformity]. EXTREMITIES: [Trace pedal edema appreciated. There is surgically acquired loss of right second toe. The right third toe is erythematous without notable edema. There is a small ulcer at the distal tip of the third toe that is oozing a small amount of blood. No other skin changes noted. Pulses intact]. NEUROLOGICAL: [Speech clear. A+Ox3. No focal deficits]. PSYCHIATRIC: [Mood and affect appropriate]. LABORATORY DATA: See below. IMAGING: [Foot XR: FINDINGS: Prior amputation at the 2nd metatarsophalangeal joint. Osseous structures demonstrate moderate osteoarthritic degenerative changes predominately involving the tarsometatarsal joints and midfoot. No evidence for acute fracture or dislocation. No significant focal periosteal reaction. No free air. IMPRESSION: Amputation and arthritic degenerative changes. No evidence for acute process by radiographic evaluation. CT Abd/pelvis: Liver: Normal. No mass. Gallbladder and bile ducts: Normal. No calcified stones. No ductal dilation. Pancreas: Normal. No ductal dilation. Spleen: Absent spleen with surgical clips and sutures in the area. Adrenal glands: Normal. No mass. Kidneys and ureters: There are bilateral areas decreased renal enhancement consistent with pyelonephritis. There are left renal cysts measuring up to 2.3 cm with a Hounsfield measurement of 19 consistent with simple cysts. No follow-up imaging is recommended. Stomach and bowel: Status post gastric sleeve. Minimal colonic diverticulosis without diverticulitis. Appendix: There are no changes of appendicitis. A normal appendix is not seen. Intraperitoneal space: Unremarkable. No free air. No significant fluid collection. Vasculature: There is mild calcification of the abdominal aorta with extension into the iliac arteries. Incidental note of an accessory retroaortic left renal vein. Lymph nodes: Unremarkable. No enlarged lymph nodes. Urinary bladder: The urinary bladder is decompressed but appears grossly normal. Reproductive: Status post hysterectomy. Bones/joints: Unremarkable. No acute fracture. Soft tissues: Unremarkable. IMPRESSION: 1. Status post gastric sleeve, splenectomy and hysterectomy. 2. Focal of poor bilateral renal enhancement consistent with pyelonephritis. 3. Minimal colonic diverticulosis without diverticulitis. 4. Otherwise negative CT abdomen/pelvis. ] MICROBIOLOGY: Please see below. ASSESSMENT: [This is a 54 y/o female who presents to our ED for evaluation of lower back and lower abdominal pain that began two days ago. Patient found in th e ed to have pyuria as well as pyelonephritic changes on ct abd in the ED.]. . PLAN: 1. [Pyelonephritis - Patient not meeting sirs criteria at this time. Patient does have leukocytosis of 34.1, but is on chronic steroid therapy for her ITP - Patient received rocephin in the ed, will continue this on the floor - Tylenol for fevers - Admit to med surg for tx 2. Possible right third toe cellulitis - Pt follows w Dr. Garner, podiatry, outpatient. Dr. Garner was consulted by ED provider and has agreed to evaluate patient in the am. Assistance and recommendations greatly appreciated. - Will begin topical mupirocin per podiatry recommendation - Pt on rocephin for pyelo - Wound care 3. ITP - pt not in acute exacerbation - continue daily prednisone - pt will need to have her eltrombopag brought in as it is not on our hospital formulary if she is to spend multiple days with us - daily cbc 4. HTN - continue torsemide, cardizem, spironolactone 5. GERD - continue protonix 6. Hypothyroidism - continue synthroid 7. Depression/anxiety - continue buspar, celexa DVT prophylaxis - mechanical]. Vital Signs Vital Signs Date Time Temp Pulse Resp B/P (MAP) Pulse Ox O2 Delivery O2 Flow Rate FiO2 12/10/20 21:45 97.0 71 113/66 (82) 98 Room Air 12/10/20 16:17 18 Laboratory Data Labs 24H Laboratory Tests 2 12/10/20 16:47: Immature Granulocyte % (Auto) , Neutrophils (%) (Auto) , Nucleated Red Blood Cells % (auto) 0.5H, Neutrophils 86H, Band Neutrophils 2, Lymphocytes (Manual) 4L, Monocytes (Manual) 4, Metamyelocytes 1H, Myelocytes 3H, Red Blood Cell Morphology NORMAL, Toxic Vacuolation 1+, Platelet Estimate NORMAL, Urine Color STRAW, Urine Appearance HAZY, Urine pH 6.0, Urine Specific [place] 1.002, Urine Protein NEGATIVE, Urine Glucose (UA) NEGATIVE, Urine Ketones NEGATIVE, Urine Blood NEGATIVE, Urine Nitrite NEGATIVE, Urine Bilirubin NEGATIVE, Urine Urobilinogen 0.2, Urine Leukocyte Esterase 3+H, Urine WBC (Auto) 37H, Urine RBC (Auto) 4H, Urine Hyaline Casts (Auto) 0, Urine Bacteria (Auto) 1+H, Urine Squamous Epithelial Cells 2, Urine Sperm (Auto) , Anion Gap 9, Glomerular Filtration Rate > 60.0, Calcium Level 7.6L, Total Bilirubin 1.0, Direct Bilirubin 0.1, Aspartate Amino Transf (AST/SGOT) 36, Alanine Aminotransferase (ALT/SGPT) 30, Alkaline Phosphatase 155H, Total Creatine Kinase 31, Creatine Kinase MB < 1.0, Creatine Kinase MB Relative Index 3.23, Troponin I < 0.02, WW-Mmw-D-Type Natriuretic Peptide 511H, Total Protein 6.3L, Albumin 2.2L, Albumin/Globulin Ratio 0.5L, Lipase 87 12/10/20 17:24: Lactic Acid Level 0.7 CBC/BMP Laboratory Tests 12/10/20 16:47 Microbiology Microbiology 12/10/20 Respiratory Virus Panel (PCR) (TJ) - Final, Complete 12/10/20 Blood Culture, Received Pending 12/10/20 Blood Culture, Received Pending 12/10/20 Urine Culture, Received Pending Home Medications Scheduled Biotin (Biotin) 1 Mg Capsule, 1 MG PO DAILY Buspirone HCl (Buspirone HCl) 5 Mg Tablet, 5 MG PO DAILY Citalopram Hydrobromide (Citalopram HBr) 20 Mg Tab, 20 MG PO DAILY Eltrombopag Olamine (Promacta) 75 Mg Tablet, 75 MG PO DAILY Estradiol (Estradiol) 1 Mg Tab, 1 MG PO DAILY Levothyroxine Sodium (Levo-T) 137 Mcg Tab, 137 MCG PO DAILY Pantoprazole Sodium (Pantoprazole Sodium) 20 Mg Tab, 20 MG PO DAILY Prednisone (Prednisone) 5 Mg Tablet, 20 MG PO DAILY Spironolactone (Spironolactone) 25 Mg Tablet, 25 MG PO BID Torsemide (Torsemide) 5 Mg Tablet, 20 MG PO QAM Torsemide (Torsemide) 5 Mg Tablet, 10 MG PO QPM dilTIAZem HCl (Tiazac) 120 Mg Cap.sa.24h, 120 MG PO DAILY Allergies Coded Allergies: Penicillins (Verified Allergy, Intermediate, hives/difficulty breathing, 10/10/20) A-FIB/CHADSVASC A-FIB History Current/History of A-Fib/PAF?: No JEREMY WISE Dec 10, 2020 22:43
--- OUTSIDE RECORDS SUMMARY | 2020-12-10 22:57 | CCD ---
Author Author [facility] Organization [facility] Address Unknown Phone Unavailable Care Team Providers Care Second Butler Name Role Phone Maring, Monty PA Unavailable [...] is protected by Article 27-F of the [facility] Public Health law. If you continue you may have access to information: Regarding HIV / AIDS; Provided by facilities licensed or operated by the [facility] Office of Mental Health; or Provided by the [facility] Office for People With Developmental Disabilities. If such information is present, then the following [facility] mandated warning applies: This information has [...] law may result in a fine or long term sentence or both. A general authorization for the release of medical or other information is NOT sufficient authorization for further disc losure. Family History Family Member Name Family Member Gender Family Member Status Date o f Status Description Data Source(s) Unknown Male Problem [facility] ([facility] Encounters Encounter Providers Location Date Indications Data Source(s ) Office Visit Attender: AMEENA STOKES [facility] Office 10/26 11:00:00 AM EDT [facility] ([facility] Office Visit Attender: AMEENA STOKES [facility] Office 04/2020 01:00:00 PM EDT [facility] ([facility] Outpatient Attender: AMEENA STOKES [facility] Office 08/25 01:30:00 PM EDT [facility] ([facility] Outpatient Attender: AMEENA STOKES [facility] Office 04/2020 02:30:00 PM EDT [facility] ([facility] Outpatient Attender: AMEENA STOKES [facility] Office 06/26 02:30:00 PM EDT [facility] ([facility] Outpatient Attender: Monty MORENO 07/21/19 06:32:36 PM EDT - 07/20/2020 06:47:25 PM EDT [facility] ([facility] ) Outpatient Attender: Monty MORENO 07/04/19 03:03:14 PM EDT - 07/03/2020 03:19:35 PM EDT [facility] ([facility] ) Outpatient Attender: AMEENA STOKES DPM [facility] 05/28 10:15:00 AM EDT [facility] ([facility] [...] type / Coverage type Policy ID Covered republican ID Covered republican's relationship to ramirez Policy Ramirez Plan Information [facility] [id number] SP [id number] U [id number] Spouse [id number] U [id number] Spouse [id number] [facility] HUMAN [id number] SP [id number] [facility] HUMAN [id number] SP [id number] / [id number] Spouse [id number] [facility] [employer] Health Maintenance Organization (HMO) [id number] Family Dependent [employer]/ AD P [id number] P [id number] [employer]/ AD P [id number] P [id number] [facility] [id number] HU2 [id number] SELFPAY 5 UNAVAILABLE 1 UNAVAILA BLE 6 [id number] [id number] 1 [phone] [facility] O [id number] S [id number] [facility] O [id number] U [id number] O UNAVAILABLE UNAVAILA BLE FOR [facility] [id number] SP [id number] [facility] O [id number] S [id number] [facility] Maintenance Organization ([facility]) [id number] Family Dependent 0 [id number] [facility] [id number] SP [id number] SELF PAY UNAVAILABLE SP UNAVAILA BLE Problems, [...] AM EDT [facility] ([facility]/DAY 35 MINUTES 09/02/2020 12:00:00 AM [...] [facility] Results ID Date Data Source [id number] 10/28/2020 12:13:00 PM EDT [facility] ([facility] Name Value Range Interpretation Code Description Data Georgie rce(s) Supporting Document(s) Glucose, Fasting 96 mg/dL 70-100 [facility] ([facility] Blood Urea Nitrogen 18 mg/dL 7-18 [facility] ([facility] Creatinine For GFR 0.70 mg/dL 0.55-1.30 [facility] ([facility] Glomerular Filtration Rate Laboratory test result [facility] ([facility] <content>Units are mL/min/1.73 m2</content>
<content></content>
<content>Chronic Kidney Disease Staging per NKF:</content>
<content></content>
<content>Stage I & II GFR >=60 Normal to Mildly Decreased</content>
<content>Stage III GFR 30- 59 Moderately Decreased</content>
<content>Stage IV GFR 15-29 Severely Decreased</content>
<content>Stage V GFR <15 Very Little GFR Left</content>
<content>ESRD GFR <15 on SENIOR MICROSTRATEGY DEVELOPER</content>
<content></content> Sodium Level 136 meq/L 136-145 MED[facility] [...] ([facility] ID Date Data Source [id number] 10/26/2020 12:49:00 PM EDT [facility] ([facility] [...] is noted on one aspect the toe. Hvac Service Manager section in one block after decalcification. -SVY 10/27/2020 - 1304 Signed ZARA SMITH MD 10/28/2020 1349 ID Date Data Source [id number] 10/24/2020 12:48:00 PM EDT [facility] ([facility] [...] Little GFR Left</content>
<content>ESRD GFR <15 on SENIOR MICROSTRATEGY DEVELOPER</content>
<content></content> Potassium Serum 5.1 meq/L 3.5-5.1 MED[facility] [...] ([facility] ID Date Data Source [id number] 10/15/2020 06:16:00 PM EDT [facility] Name Value Range Interpretation Code Description Data Georgie rce(s) Supporting Document(s) SARS coronavirus 2 RNA [Presence] in Res piratory specimen by DOLORES with probe detection NEGATIVE [facility] This lab was ordered by [facility] a nd reported by [facility]. ID Date Data Source [id number] 09/02/2020 08:33:00 PM EDT [facility] Name Value Range Interpretation Code Description Data Georgie rce(s) Supporting Document(s) SARS coronavirus 2 RNA [Presence] in Res piratory specimen by DOLORES with probe detection NEGATIVE [facility] This lab was ordered by [facility] a nd reported by [facility]. ID Date Data Source [id number] 08/09/2020 02:59:00 PM EDT [facility] Name Value Range Interpretation Code Description Data Georgie rce(s) Supporting Document(s) SARS-CoV-2 (COVID 19) NEGATIVE - SARS-CoV-2 (COVID19) [facility] This lab was ordered by [facility] a nd reported by [facility]. ID Date Data Source [id number] 08/09/2020 02:59:00 PM EDT [facility] Name Value Range Interpretation Code Description Data Georgie rce(s) Supporting Document(s) SARS coronavirus 2 RNA [Presence] in Res piratory specimen by DOLORES with probe detection NEGATIVE [facility] This lab was ordered by [facility] a nd reported by [facility]. ID Date Data Source [id number] 07/28/2020 11:06:00 PM EDT [facility] Name Value Range Interpretation Code Description Data Georgie rce(s) Supporting Document(s) SARS coronavirus 2 RNA [Presence] in Res piratory specimen by DOLORES with probe detection NEGATIVE [facility] This lab was ordered by [facility] a nd reported by [facility]. Procedure Social History No Information Vital Signs ID Date Data Source UNK Name Value Range Interpretation Code Description Data Source(s) Heart rate 85 /min 85 /min [facility] ([facility] Body mass index (BMI) [Ratio] 24.3 kg/m2 24.3 k g/m2 [facility] ([facility] Body height 67 [in_i] 67 [in_i] [facility] ([facility] 5'7" Body weight 155.00 [lb_av] 155.00 [lb_av] MEDEN T ([facility] Systolic blood pressure 160 mm[Hg] 160 mm[Hg] M EDENT ([facility] Diastolic blood pressure 94 mm[Hg] 94 mm[Hg] [facility] ([facility] Diastolic blood pressure 74 mm[Hg] 74 mm[Hg] [facility] ([facility] Body height 67 [in_i] 67 [in_i] [facility] ([facility] 5'7" Body weight 168.00 [lb_av] 168.00 [lb_av] MEDEN T ([facility] Heart rate 80 /min 80 /min [facility] ([facility] Body mass index (BMI) [Ratio] 26.3 kg/m2 26.3 k g/m2 [facility] ([facility] Systolic blood pressure 110 mm[Hg] 110 mm[Hg] M EDENT ([facility] Body height 67 [in_i] 67 [in_i] [facility] ([facility] 5'7" Body weight 168.00 [lb_av] 168.00 [lb_av] MEDEN T ([facility] Systolic blood pressure 110 mm[Hg] 110 mm[Hg] M EDENT ([facility] Diastolic blood pressure 86 mm[Hg] 86 mm[Hg] [facility] ([facility] Heart rate 69 /min 69 /min [facility] ([facility] Body mass index (BMI) [Ratio] 26.3 kg/m2 26.3 k g/m2 [facility] ([facility]
[2020-12-10 23:19] VITALS: BP 131/72
[2020-12-11] MEDS: LEVOTHYROXINE 137MCG TABLET (0.137MG) PO SCH (05:37)
[2020-12-11] MEDS: MUPIROCIN 2% OINT 22 GM TUBE TOP SCH ×3 (05:37→22:49)
[2020-12-11 06:00] VITALS: BP 115/65
[2020-12-11 06:34] LABS: HEMATOCRIT 31.2 % (36.0-47.0); MEAN CORPUSCULAR HEMOGLOBIN 33.9 pg (27.0-33.0); MEAN CORPUSCULAR HGB CONC 34.3 g/dl (32.0-36.5); MEAN CORPUSCULAR VOLUME 98.7 fl (80.0-96.0); PLATELET COUNT, AUTOMATED 342 10^3/uL (150-450); RED BLOOD COUNT 3.16 10^6/uL (4.00-5.40)
[2020-12-11 06:35] LABS: HEMOGLOBIN 10.7 g/dl (12.0-15.5)
[2020-12-11 06:50] LABS: BLOOD UREA NITROGEN 13 MG/DL (7-18); CALCIUM LEVEL 7.3 MG/DL (8.5-10.1); CARBON DIOXIDE LEVEL 25 MEQ/L (21-32); CHLORIDE LEVEL 107 MEQ/L (98-107); CREATININE FOR GFR 0.49 MG/DL (0.55-1.30); GLOMERULAR FILTRATION RATE > 60.0 (>51); GLUCOSE, FASTING 84 MG/DL (70-100); MAGNESIUM LEVEL 1.5 MG/DL (1.8-2.4); POTASSIUM SERUM 3.3 MEQ/L (3.5-5.1); SODIUM LEVEL 139 MEQ/L (136-145)
[2020-12-11] MEDS: estradioL 1 MG TAB PO SCH (09:34)
[2020-12-11] MEDS: predniSONE 20 MG TAB PO SCH (09:34)
[2020-12-11] MEDS: busPIRone 5 MG TAB PO SCH (09:34)
[2020-12-11] MEDS: CitaloPRAM (CeleXA) 20 MG TAB PO SCH (09:34)
[2020-12-11] MEDS: PANTOPRAZOLE 20 MG TAB PO SCH (09:34)
[2020-12-11] MEDS: TORSEMIDE 20 MG TAB PO SCH (09:34)
[2020-12-11] MEDS: SPIRONOLACTONE 25 MG TAB PO SCH ×2 (09:34→18:18)
--- NOTE | 2020-12-11 10:52 | CR ---
CONSULTATION DATE: 12/11/2020 REASON FOR CONSULTATION: Foot ulcerations. HISTORY OF PRESENT ILLNESS: Meredith Laws is a patient well known to me with previous right second toe amputation. She was admitted due to lower back and abdominal pain and was found to have pyelonephritis. PAST MEDICAL HISTORY: The patient's past medical history includes: 1. ITP - status post splenectomy. 2. Hypertension. 3. Hypothyroidism. 4. Uterine cancer - status post hysterectomy. PAST SURGICAL HISTORY: The patient's past surgical history is significant for: 1. Splenectomy. 2. Appendectomy. 3. Gastric sleeve. 4. Hysterectomy SOCIAL HISTORY: Positive for smoking. Negative for alcohol use. FAMILY HISTORY: Noncontributory. REVIEW OF SYSTEMS: She denies nausea, vomiting, fever or chills. ALLERGIES: Penicillins. PHYSICAL EXAMINATION: VITAL SIGNS: She has been afebrile since admission. EXTREMITIES: Lower extremity examination second toe amputation site with some slight proximal dehiscence. There is an ulceration in the distal aspect of the third toe with some trace purulence. LABORATORY STUDIES: White blood cell count on admission was 34.1, today it is 28. IMAGING: Foot x-ray shows second toe amputation, no other significant findings. ASSESSMENT: A 54-year-old female status post right second toe amputation and third toe ulceration with cellulitis. PLAN: Excisional wound debridement with a dermal curette performed right 3rd toe including subcutaneous tissue. The patient is presently on Ceftriaxone. 1. I would continue Mupirocin Ointment to the toes daily. 2. The patient can be discharged once other infection is under control. 3. The patient can follow up in the office. ODALIS
--- NOTE | 2020-12-11 11:59 | IPNPDOC ---
Subjective Date Seen The patient was seen on 12/11/20. Subjective Chief Complaint/HPI Patient was seen and examined at bedside this morning. She had no new complaints. She denied headaches, blurry vision, chest pain, abdominal pain, nausea, vomiting, problems with urination and bowel movements. Objective Physical Examination Other physical findings General: Lying in bed, no acute distress Head/Neck/Throat: Trachea midline, mucous membranes moist Eyes: Sclera anicteric, PERRLA Thorax: Normal respiratory effort on room air, lungs clear to auscultation bilaterally, no wheezes/rales/rhonchi Cardiovascular: Normal rate, regular rhythm, normal S1, S2; no S3, S4, rubs/gallops/murmurs Abdomen: Bowel sounds present, soft/nontender/nondistended Genitourinary: No CVA tenderness, no Bergeron in place Musculoskeletal: Moving all extremities, no edema Skin: Second toe amputation with dehiscence and ulceration of the distal third toe. Neurologic: AAOx3, speech fluent and goal-directed, no focal deficits, grossly intact Assessment /Plan Assessment #Pyelonephritis -Continue with ceftriaxone until cultures have resulted. #Right toe cellulitis -Evaluated by podiatry and recommend mupirocin and follow-up as outpatient. #ITP -Platelets are stable. Continue with prednisone. Eltrombopag to be brought in if prolonged hospitalization. #Hypertension -Continue with torsemide, cardizem, spironolactone #GERD -Continue with Protonix #Hypothyroidism -continue with Synthroid #Depression/anxiety -Continue with buspirone and Celexa #DVT prophylaxis -Teds and sequentials Plan/VTE VTE Prophylaxis Ordered?: Yes VS, I&O, [facility] Vital Signs/I&O Vital Signs Date Time Temp Pulse Resp B/P (MAP) Pulse Ox O2 Delivery O2 Flow Rate FiO2 12/11/20 09:34 74 115/65 12/11/20 06:00 97.2 17 96 Room Air I&O- Last 24 Hours up to 6 AM 12/11/20 06:00 Intake Total 1645 ml Output Total 300 ml Balance 1345 ml Laboratory Data 24H LABS Laboratory Tests 2 12/10/20 16:47: Immature Granulocyte % (Auto) , Neutrophils (%) (Auto) , Nucleated Red Blood Cells % (auto) 0.5H, Neutrophils 86H, Band Neutrophils 2, Lymphocytes (Manual) 4L, Monocytes (Manual) 4, Metamyelocytes 1H, Myelocytes 3H, Red Blood Cell Morphology NORMAL, Toxic Vacuolation 1+, Platelet Estimate NORMAL, Urine Color STRAW, Urine Appearance HAZY, Urine pH 6.0, Urine Specific [place] 1.002, Urine Protein NEGATIVE, Urine Glucose (UA) NEGATIVE, Urine Ketones NEGATIVE, Urine Blood NEGATIVE, Urine Nitrite NEGATIVE, Urine Bilirubin NEGATIVE, Urine Urobilinogen 0.2, Urine Leukocyte Esterase 3+H, Urine WBC (Auto) 37H, Urine RBC (Auto) 4H, Urine Hyaline Casts (Auto) 0, Urine Bacteria (Auto) 1+H, Urine Squamous Epithelial Cells 2, Urine Sperm (Auto) , Anion Gap 9, Glomerular Filtration Rate > 60.0, Calcium Level 7.6L, Total Bilirubin 1.0, Direct Bilirubin 0.1, Aspartate Amino Transf (AST/SGOT) 36, Alanine Aminotransferase (ALT/SGPT) 30, Alkaline Phosphatase 155H, Total Creatine Kinase 31, Creatine Kinase MB < 1.0, Creatine Kinase MB Relative Index 3.23, Troponin I < 0.02, PT-Qyk-[id number]-Type Natriuretic Peptide 511H, Total Protein 6.3L, Albumin 2.2L, Albumin/Globulin Ratio 0.5L, Lipase 87 12/10/20 17:24: Lactic Acid Level 0.7 12/11/20 06:17: Nucleated Red Blood Cells % (auto) 0.3H, Anion Gap 7L, Glomerular Filtration Rate > 60.0, Calcium Level 7.3L, Magnesium Level 1.5L CBC/BMP Laboratory Tests 12/10/20 16:47 12/11/20 06:17 Microbiology Microbiology 12/10/20 Respiratory Virus Panel (PCR) (TJ) - Final, Complete 12/10/20 Blood Culture, Received Pending 12/10/20 Blood Culture, Received Pending 12/10/20 Urine Culture, Received Pending ALEJANDRA CABAN M.D. Dec 11, 2020 11:51
[2020-12-11] MEDS ORDERED: MAGNESIUM OXIDE 400MG TAB (MAG-OX) PO ONE (12:30)
[2020-12-11] MEDS ORDERED: POTASSIUM CHLORIDE 10MEQ SR TABLET PO ONE (13:00)
[2020-12-11 14:00] VITALS: BP 109/69
[2020-12-11] MEDS ORDERED: TORSEMIDE 10 MG TABLET PO SCH (17:00)
[2020-12-11] MEDS ORDERED: cefTRIAXone SOD 2 GM in D5W MINI-BAG PLUS 50 ML IV SCH (18:00)
--- NOTE | 2020-12-11 19:33 | ECGEPIP ---
[facility] - ED Test Date: 2020-12-10 Pat Name: ALTON ALANIZ Department: Room: - Gender: Female Cottage Parent: BRONSON : 1965 Requested By: SERENA Pack PA-C Order Number: [id number] Reading MD: Kwesi Raymond Measurements Intervals [place] Rate: 71 P: 44 [place]: 144 QRS: 2 QRSD: 94 T: 35 QT: 428 QTc: 465 Interpretive Statements Normal sinus rhythm Possible Left atrial enlargement POOR R WAVE PROGRESSION SIMILAR TO 08/09/20 Electronically Signed on 12-11-2020 19:32:52 EDT by Kwesi Raymond
[2020-12-11 22:00] VITALS: BP 122/74
[2020-12-12 06:00] VITALS: BP 130/71
[2020-12-12 06:04] LABS: MEAN CORPUSCULAR HEMOGLOBIN 33.1 pg (27.0-33.0); MEAN CORPUSCULAR HGB CONC 33.3 g/dl (32.0-36.5); MEAN CORPUSCULAR VOLUME 99.4 fl (80.0-96.0); RED BLOOD COUNT 3.32 10^6/uL (4.00-5.40); WHITE BLOOD COUNT 27.4 10^3/uL (4.0-10.0)
[2020-12-12 06:11] LABS: PLATELET COUNT, AUTOMATED 503 10^3/uL (150-450)
[2020-12-12] MEDS: LEVOTHYROXINE 137MCG TABLET (0.137MG) PO SCH (06:15)
[2020-12-12] MEDS: MUPIROCIN 2% OINT 22 GM TUBE TOP SCH ×2 (06:15→09:13)
[2020-12-12 06:30] LABS: BLOOD UREA NITROGEN 13 MG/DL (7-18); CALCIUM LEVEL 7.5 MG/DL (8.5-10.1); CARBON DIOXIDE LEVEL 29 MEQ/L (21-32); CHLORIDE LEVEL 109 MEQ/L (98-107); CREATININE FOR GFR 0.66 MG/DL (0.55-1.30); GLOMERULAR FILTRATION RATE > 60.0 (>51); GLUCOSE, FASTING 71 MG/DL (70-100); MAGNESIUM LEVEL 1.6 MG/DL (1.8-2.4); PHOSPHORUS LEVEL 3.3 MG/DL (2.5-4.9); POTASSIUM SERUM 3.6 MEQ/L (3.5-5.1); SODIUM LEVEL 142 MEQ/L (136-145)
[2020-12-12] MEDS ORDERED: LEVO750T13 PO (08:38)
[2020-12-12 09:12] VITALS: BP 130/71
[2020-12-12] MEDS: predniSONE 20 MG TAB PO SCH (09:12)
[2020-12-12] MEDS: busPIRone 5 MG TAB PO SCH (09:12)
[2020-12-12] MEDS: estradioL 1 MG TAB PO SCH (09:12)
[2020-12-12] MEDS: SPIRONOLACTONE 25 MG TAB PO SCH (09:12)
[2020-12-12] MEDS: CitaloPRAM (CeleXA) 20 MG TAB PO SCH (09:12)
[2020-12-12] MEDS: TORSEMIDE 20 MG TAB PO SCH (09:12)
[2020-12-12] MEDS: PANTOPRAZOLE 20 MG TAB PO SCH (09:12)
[2020-12-12] MEDS ORDERED: MUPI2OI TOP (16:40)
--- NOTE | 2020-12-12 16:49 | DS.PDOC ---
Discharge Summary General Date of Admission Dec 10, 2020 at 22:37 Date of Discharge 12/12/20 Discharge Summary DISCHARGE DIAGNOSES: 1. Pyelonephritis 2. Right foot cellulitis COMPLICATIONS/CHIEF COMPLAINT: Pyelonephritis. HOSPITAL COURSE: Ms. Laws, is a 54 year old female with a past medical history of ITP (status post colectomy, hypertension, hypothyroidism, uterine cancer status post hysterectomy presented to the emergency room department with complaints of lower back pain and abdominal pain 2 days prior to admission. A CT scan of the abdomen and pelvis was done that noted bilateral pyelonephritis. She was afebrile, had significant leukocytosis of 34,000 therefore was admitted for IV antibiotics. She was treated with ceftriaxone and is being discharged with levofloxacin. Of note, she endorses having recurrent urinary tract infection therefore she was asked to follow-up with a urologist for further evaluation. Of note, patient has chronically elevated leukocytosis and when she was discharged she was back to baseline. She also reported resolution of her symptoms. She follows Dr. Garner (build master) as an outpatient for her right second toe amputation and third toe ulceration with cellulitis. It is recommended for her to continue with mupirocin ointment to the toes daily. She is to follow-up with the podiatry team within 1 week of discharge for ongoing care of these chronic wounds. Of note, she was contacted following discharge to update her on sending over Mupirocin ointment to her pharmacy. Patient asked to maintain appointments for her ITP. She was encouraged to have repeat blood work done with her primary care physician including CBC (to ensure white count is within the normal limits for her, respectively) and also chemistry (as electrolytes repleted during hospitalization). DISCHARGE MEDICATIONS: Please see below. ALLERGIES: Please see below. PHYSICAL EXAMINATION ON DISCHARGE: VITAL SIGNS: Please see below. General: Lying in bed, no acute distress Head/Neck/Throat: Trachea midline, mucous membranes moist Eyes: Sclera anicteric, PERRLA Thorax: Normal respiratory effort on room air, lungs clear to auscultation bilaterally, no wheezes/rales/rhonchi Cardiovascular: Normal rate, regular rhythm, normal S1, S2; no S3, S4, rubs/gallops/murmurs Abdomen: Bowel sounds present, soft/nontender/nondistended Genitourinary: No CVA tenderness, no Bergeron in place Musculoskeletal: Moving all extremities, no edema Skin: Second toe amputation with dehiscence and ulceration of the distal third toe, clean no erythema or discharge appreciated, no induration. Neurologic: AAOx3, speech fluent and goal-directed, no focal deficits, grossly intact LABORATORY DATA: Please see below. IMAGING: CT ABD/PEL W/IV & ORAL CONTRAS FINDINGS: Lungs: Minimal bibasilar fibro-atelectatic change. Liver: Normal. No mass. Gallbladder and bile ducts: Normal. No calcified stones. No ductal dilation. Pancreas: Normal. No ductal dilation. Spleen: Absent spleen with surgical clips and sutures in the area. Adrenal glands: Normal. No mass. Kidneys and ureters: There are bilateral areas decreased renal enhancement consistent with pyelonephritis. There are left renal cysts measuring up to 2.3 cm with a Hounsfield measurement of 19 consistent with simple cysts. No follow-up imaging is recommended. Stomach and bowel: Status post gastric sleeve. Minimal colonic diverticulosis without diverticulitis. Appendix: There are no changes of appendicitis. A normal appendix is not seen. Intraperitoneal space: Unremarkable. No free air. No significant fluid collection. Vasculature: There is mild calcification of the abdominal aorta with extension into the iliac arteries. Incidental note of an accessory retroaortic left renal vein. Lymph nodes: Unremarkable. No enlarged lymph nodes. Urinary bladder: The urinary bladder is decompressed but appears grossly normal. Reproductive: Status post hysterectomy. Bones/joints: Unremarkable. No acute fracture. Soft tissues: Unremarkable. IMPRESSION: 1. Status post gastric sleeve, splenectomy and hysterectomy. 2. Focal of poor bilateral renal enhancement consistent with pyelonephritis. 3. Minimal colonic diverticulosis without diverticulitis. 4. Otherwise negative CT abdomen/pelvis. Foot, complete RIGHT FINDINGS: Prior amputation at the 2nd metatarsophalangeal joint. Osseous structures demonstrate moderate osteoarthritic degenerative changes predominately involving the tarsometatarsal joints and midfoot. No evidence for acute fracture or dislocation. No significant focal periosteal reaction. No free air. IMPRESSION: Amputation and arthritic degenerative changes. No evidence for acute process by radiographic evaluation PROGNOSIS: Good ACTIVITY: As tolerated. DISPOSITION: 01 Home, Self-Care. DISCHARGE INSTRUCTIONS: 1. Follow up with primary care doctor and build master within 5 days of discharge. DISCHARGE CONDITION: Stable TIME SPENT ON DISCHARGE: 25 minutes. Vital Signs/I&Os Vital Signs Date Time Temp Pulse Resp B/P (MAP) Pulse Ox O2 Delivery O2 Flow Rate FiO2 12/12/20 09:12 130/71 12/12/20 06:00 97.8 70 16 97 Room Air I&O- Last 24 Hours up to 6 AM 12/12/20 06:00 Intake Total 890 ml Output Total 0 ml Balance 890 ml Laboratory Data Labs 24H Laboratory Tests 2 12/12/20 05:47: Nucleated Red Blood Cells % (auto) 0.1H, Anion Gap 4L, Glomerular Filtration R ate > 60.0, Calcium Level 7.5L, Phosphorus Level 3.3, Magnesium Level 1.6L CBC/BMP Laboratory Tests 12/12/20 05:47 Microbiology Microbiology 12/10/20 Respiratory Virus Panel (PCR) (TJ) - Final, Complete 12/10/20 Blood Culture - Preliminary, Resulted No growth after 24 hours . All specim... 12/10/20 Blood Culture - Preliminary, Resulted No growth after 24 hours . All specim... 12/10/20 Urine Culture - Final, Complete Escherichia Coli Discharge Medications Scheduled Biotin (Biotin) 1 Mg Capsule, 1 MG PO DAILY, (Reported) Buspirone HCl (Buspirone HCl) 5 Mg Tablet, 5 MG PO DAILY, (Reported) Citalopram Hydrobromide (Citalopram HBr) 20 Mg Tab, 20 MG PO DAILY, (Reported) Eltrombopag Olamine (Promacta) 75 Mg Tablet, 75 MG PO DAILY, (Reported) Estradiol (Estradiol) 1 Mg Tab, 1 MG PO DAILY, (Reported) Levofloxacin (Levofloxacin) 750 Mg Tablet, 750 MG PO DAILY Levothyroxine Sodium (Levo-T) 137 Mcg Tab, 137 MCG PO DAILY, (Reported) Pantoprazole Sodium (Pantoprazole Sodium) 20 Mg Tab, 20 MG PO DAILY, (Reported) Prednisone (Prednisone) 5 Mg Tablet, 20 MG PO DAILY, (Reported) Spironolactone (Spironolactone) 25 Mg Tablet, 25 MG PO BID, (Reported) Torsemide (Torsemide) 5 Mg Tablet, 20 MG PO QAM, (Reported) Torsemide (Torsemide) 5 Mg Tablet, 10 MG PO QPM, (Reported) dilTIAZem HCl (Tiazac) 120 Mg Cap.sa.24h, 120 MG PO DAILY, (Reported) Allergies Coded Allergies: Penicillins (Verified Allergy, Intermediate, hives/difficulty breathing, 10/10/20) ALEJANDRA CABAN M.D. Dec 12, 2020 16:49
== END 2020-12-12 11:21 | disposition home or self-care (01) | DRG 674 ==
LOC: M ED 16:16 → M ED INP 22:37 → M MSPAV 23:19
PROVIDERS: ADMIT Internal Medicine; ATTEND Internal Medicine
PROC: 0JBQ0ZZ Excision of Right Foot Subcutaneous Tissue and Fascia, Open Approach (ICD-10-PCS; principal; 2020-12-11)
DX: N13.6 Pyonephrosis (principal); D69.3 Immune thrombocytopenic purpura; I10 Essential (primary) hypertension; K21.9 Gastro-esophageal reflux disease without esophagitis; E03.9 Hypothyroidism, unspecified; F41.9 Anxiety disorder, unspecified; F32.9 Major depressive disorder, single episode, unspecified; F17.210 Nicotine dependence, cigarettes, uncomplicated; L03.031 Cellulitis of right toe; Z20.822 Contact with and (suspected) exposure to COVID-19; Z79.899 Other long term (current) drug therapy; Z88.0 Allergy status to penicillin; Z89.421 Acquired absence of other right toe(s); Z98.84 Bariatric surgery status; Z90.49 Acquired absence of other specified parts of digestive tract; Z90.79 Acquired absence of other genital organ(s); B96.20 Unspecified Escherichia coli [E. coli] as the cause of diseases classified elsewhere; M54.50 Low back pain, unspecified

== ENCOUNTER → 2021-01-12 | Outpatient (REF) | payer OTHER ==
[~2021-01-12] MED LIST changes: +ALBU8.5H INH; +ECOT81TA5 PO; +MUPI2OI TOP; +PRED10PA PO
== END ==
LOC: M LAB REF 12:34
PROVIDERS: ATTEND Podiatrist Foot & Ankle Surgery
DX: L03.031 Cellulitis of right toe (principal)

== ENCOUNTER → 2021-08-14 | Outpatient (CLI) | payer OTHER ==
[~2021-08-14] MED LIST changes: -ACET1TAB16 PO; +ACET300T48 PO; +POTA8CAP10 PO; +PROM-188 PO
== END ==
LOC: M WHC 09:41
PROVIDERS: ATTEND Internal Medicine Medical Oncology
DX: M79.89 Other specified soft tissue disorders (principal)

== ENCOUNTER → 2021-11-15 | Outpatient (CLI) | payer OTHER ==
[~2021-11-15] MED LIST changes: +ESTR625TA PO; +FOLI1TAB11 PO; +LEVO1TAB40 PO; -LEVO750T13 PO; +MAGN400T33; +NEXI20TA PO; +VITA1CAP25 PO
== END ==
LOC: M LABSMTC 11:28
PROVIDERS: ATTEND Anesthesiology
DX: Z01.812 Encounter for preprocedural laboratory examination (principal); Z11.52 Encounter for screening for COVID-19

== ENCOUNTER 2021-11-20 09:58 | Day surgery (SDC) | payer OTHER ==
[~2021-11-20] VITALS: Ht 170.2 cm; Wt 77.6 kg
[~2021-11-20 09:58] MED LIST changes: +CYCLOPENTOLATE 1% OPHTH SOLN 2 ML BTL OS SCH; +FLURBIPROFEN 0.03% OPHTH SOLN 2.5 ML OS SCH; +LIDOCAINE 1% SDV 5ML VIAL As Ordered ONE; +LR 1,000 ML IV SCH; +PHENYLEPHRINE 2.5% OPHTH SOL 2ML OS SCH
[2021-11-20] MEDS: TETRACAINE 0.5% OPHTH SOLN 4ML OS SCH ×2 (11:31→13:43)
[2021-11-20] MEDS ORDERED: MIDAZOLAM INJ 2MG/2ML VIAL (J2250 PER 1MG) As Ordered ONE (13:00)
[2021-11-20] MEDS ORDERED: fentaNYL 100 MCG/2 ML INJECTION As Ordered ONE (13:01)
[2021-11-20 14:40] VITALS: BP 108/63
== END 2021-11-20 14:46 | disposition home or self-care (01) ==
LOC: M SDC 09:58
PROVIDERS: ATTEND Ophthalmology
DX: H25.12 Age-related nuclear cataract, left eye (principal); I10 Essential (primary) hypertension; E03.9 Hypothyroidism, unspecified; Z79.51 Long term (current) use of inhaled steroids; Z79.899 Other long term (current) drug therapy; Z88.0 Allergy status to penicillin; F17.210 Nicotine dependence, cigarettes, uncomplicated; K21.9 Gastro-esophageal reflux disease without esophagitis; F41.9 Anxiety disorder, unspecified; F32.A Depression, unspecified
CPT/HCPCS: 66984; J2250; J3010

== ENCOUNTER 2021-12-18 09:34 | Day surgery (SDC) | payer OTHER ==
[~2021-12-18] VITALS: Ht 170.2 cm; Wt 77.2 kg
[~2021-12-18 09:34] MED LIST changes: +LIDOCAINE 1% 1ML PF SYRINGE (OR EYE CASES) As Ordered ONE; -LIDOCAINE 1% SDV 5ML VIAL As Ordered ONE
[2021-12-18] MEDS: TETRACAINE 0.5% OPHTH SOLN 4ML OS SCH ×2 (10:28→10:34)
[2021-12-18] MEDS ORDERED: fentaNYL 100 MCG/2 ML INJECTION As Ordered ONE (10:57)
[2021-12-18] MEDS ORDERED: MIDAZOLAM INJ 2MG/2ML VIAL (J2250 PER 1MG) As Ordered ONE (10:57)
[2021-12-18] MEDS: TETRACAINE 0.5% OPHTH SOLN 4ML OD SCH ×2 (11:17→11:18)
[2021-12-18] MEDS: PHENYLEPHRINE 2.5% OPHTH SOL 2ML OD SCH ×2 (11:18→11:19)
[2021-12-18] MEDS: CYCLOPENTOLATE 1% OPHTH SOLN 2 ML BTL OD SCH ×2 (11:18→11:19)
[2021-12-18] MEDS: FLURBIPROFEN 0.03% OPHTH SOLN 2.5 ML OD SCH ×2 (11:18→11:19)
[2021-12-18 12:07] VITALS: BP 106/59
== END 2021-12-18 12:26 | disposition home or self-care (01) ==
LOC: M SDC 09:34
PROVIDERS: ATTEND Ophthalmology
DX: H25.11 Age-related nuclear cataract, right eye (principal); E03.9 Hypothyroidism, unspecified; I10 Essential (primary) hypertension; F17.218 Nicotine dependence, cigarettes, with other nicotine-induced disorders; K21.9 Gastro-esophageal reflux disease without esophagitis; Z79.51 Long term (current) use of inhaled steroids; Z98.84 Bariatric surgery status; Z79.899 Other long term (current) drug therapy; F41.9 Anxiety disorder, unspecified; F32.A Depression, unspecified; Z88.0 Allergy status to penicillin
CPT/HCPCS: 66984; J2250; J3010

== ENCOUNTER 2022-10-18 17:10 | Emergency (ER) | payer OTHER ==
[~2022-10-18] VITALS: Ht 170.2 cm; Wt 68.2 kg
[~2022-10-18 17:10] MED LIST changes: -CYCLOPENTOLATE 1% OPHTH SOLN 2 ML BTL OS SCH; +DEXA4TA PO; +DILT120C41 PO; -DILT1CAP PO; -FLURBIPROFEN 0.03% OPHTH SOLN 2.5 ML OS SCH; -LIDOCAINE 1% 1ML PF SYRINGE (OR EYE CASES) As Ordered ONE; -LR 1,000 ML IV SCH; +NYST-38 PO; -NYST50SS PO; -PHENYLEPHRINE 2.5% OPHTH SOL 2ML OS SCH
[2022-10-18 17:31] VITALS: TEMP 99.3
[2022-10-18 18:20] LABS: BASO # 0.1 10^3/uL (0.0-0.2); BASO % 0.9 % (0.0-1.0); EOS # 0.2 10^3/uL (0.0-0.5); EOS % 1.2 % (0.0-3.0); HEMOGLOBIN 10.8 g/dl (12.0-15.5); LYMPH # 2.2 10^3/uL (1.5-5.0); LYMPH % 14.6 % (24.0-44.0); MEAN CORPUSCULAR HGB CONC 31.8 g/dl (32.0-36.5); MEAN CORPUSCULAR VOLUME 91.4 fl (80.0-96.0); MONO % 11.1 % (2.0-8.0); NEUTROPHILS # 10.6 10^3/uL (1.5-8.5); NEUTROPHILS % 71.1 % (36.0-66.0); PLATELET COUNT, AUTOMATED 343 10^3/uL (150-450); RED BLOOD COUNT 3.72 10^6/uL (4.00-5.40); WHITE BLOOD COUNT 14.9 10^3/uL (4.0-10.0)
[2022-10-18 18:39] LABS: ETHYL ALCOHOL (ETHANOL) < 0.003 % (0.000-0.010)
[2022-10-18 18:40] LABS: ALBUMIN 2.9 G/DL (3.2-5.2); ALKALINE PHOSPHATASE 103 U/L (46-116); ALT/SGPT 12 U/L (7.0-40); AST/SGOT 29 U/L (<34); BILIRUBIN,DIRECT 0.1 MG/DL (<0.4); BILIRUBIN,TOTAL 0.3 MG/DL (0.3-1.2); BLOOD UREA NITROGEN 6 MG/DL (9-23); CALCIUM LEVEL 8.9 MG/DL (8.5-10.1); CARBON DIOXIDE LEVEL 20 MMOL/L (20-31); CHLORIDE LEVEL 112 MMOL/L (98-107); CREATININE FOR GFR 0.54 MG/DL (0.55-1.30); GLOMERULAR FILTRATION RATE > 60.0 (>51); GLUCOSE, FASTING 87 MG/DL (60-100); MAGNESIUM LEVEL 1.2 MG/DL (1.8-2.4); POTASSIUM SERUM 4.3 MMOL/L (3.5-5.1); SODIUM LEVEL 140 MMOL/L (136-145); TOTAL PROTEIN 6.6 G/DL (5.7-8.2)
[2022-10-18] MEDS ORDERED: MAG SULF 1GM/100ML (MAG RUN) 1 GM in IV 1 EA IV ONE (18:45)
[2022-10-18 18:58] LABS: CK-MB VALUE MASS < 1.0 NG/ML (<3.6); CPK CREATINE PHOSPHOKINASE 50 U/L (34-145); MONO # 1.7 10^3/uL (0.0-0.8); PHOSPHORUS LEVEL 3.7 MG/DL (2.5-4.9)
[2022-10-18 19:00] LABS: FREE T4 1.33 NG/DL (0.89-1.76); THYROID STIMULATING HORMONE 0.011 uIU/ML (0.55-4.78)
[2022-10-18 20:15] LABS: MB/CK RELATIVE INDEX 1.96 (< OR =4)
[2022-10-18 21:46] LABS: CK-MB VALUE MASS 1.4 NG/ML (<3.6)
[2022-10-18 21:55] LABS: MB/CK RELATIVE INDEX 2.45 (< OR =4)
[2022-10-18 23:00] VITALS: BP 150/86; O2SAT 98
== END 2022-10-18 23:20 | disposition home or self-care (01) ==
LOC: M ED 17:10 → EDBD 17:10 → M ED 23:20
DX: R00.2 Palpitations (principal); E83.42 Hypomagnesemia; I10 Essential (primary) hypertension; F32.A Depression, unspecified; F41.9 Anxiety disorder, unspecified; D69.3 Immune thrombocytopenic purpura; Z79.899 Other long term (current) drug therapy; Z88.0 Allergy status to penicillin
CPT/HCPCS: 71046; 80048; 80076; 82077; 82550; 82553; 83735; 84100; 84439; 84443; 84484; 85025; 93005; 93041; 94760; 96374; 99285; J3475

== ENCOUNTER 2022-10-20 17:00 | Emergency (ER) | payer OTHER ==
[~2022-10-20] VITALS: Ht 170.2 cm; Wt 71.5 kg
[2022-10-20 17:44] LABS: BASO # 0.1 10^3/uL (0.0-0.2); BASO % 1.1 % (0.0-1.0); EOS # 0.3 10^3/uL (0.0-0.5); EOS % 3.2 % (0.0-3.0); HEMATOCRIT 34.3 % (36.0-47.0); HEMOGLOBIN 10.8 g/dl (12.0-15.5); LYMPH # 2.5 10^3/uL (1.5-5.0); LYMPH % 27.4 % (24.0-44.0); MEAN CORPUSCULAR HEMOGLOBIN 29.2 pg (27.0-33.0); MEAN CORPUSCULAR HGB CONC 31.5 g/dl (32.0-36.5); MEAN CORPUSCULAR VOLUME 92.7 fl (80.0-96.0); MONO # 1.3 10^3/uL (0.0-0.8); MONO % 13.8 % (2.0-8.0); NEUTROPHILS # 4.9 10^3/uL (1.5-8.5); NEUTROPHILS % 53.6 % (36.0-66.0); PLATELET COUNT, AUTOMATED 223 10^3/uL (150-450); WHITE BLOOD COUNT 9.1 10^3/uL (4.0-10.0)
[2022-10-20 18:09] LABS: CK-MB VALUE MASS 1.7 NG/ML (<3.6)
[2022-10-20 18:11] LABS: BLOOD UREA NITROGEN 6 MG/DL (9-23); CALCIUM LEVEL 8.5 MG/DL (8.5-10.1); CARBON DIOXIDE LEVEL 19 MMOL/L (20-31); CHLORIDE LEVEL 112 MMOL/L (98-107); GLOMERULAR FILTRATION RATE > 60.0 (>51); GLUCOSE, FASTING 83 MG/DL (60-100); POTASSIUM SERUM 5.1 MMOL/L (3.5-5.1); SODIUM LEVEL 141 MMOL/L (136-145)
[2022-10-20 18:16] LABS: CPK CREATINE PHOSPHOKINASE 53 U/L (34-145)
[2022-10-20] MEDS ORDERED: TORSEMIDE 20 MG TAB PO STA (18:23)
[2022-10-20 18:48] LABS: MAGNESIUM LEVEL 1.5 MG/DL (1.8-2.4)
[2022-10-20] MEDS ORDERED: MAG SULF 1GM/100ML (MAG RUN) 1 GM in IV 1 EA IV ONE (19:25)
[2022-10-20 19:49] LABS: CK-MB VALUE MASS 1.5 NG/ML (<3.6)
[2022-10-20 19:51] LABS: MB/CK RELATIVE INDEX 3.26 (< OR =4)
[2022-10-20] MEDS ORDERED: TORS10TA3 PO ×2 (20:27)
[2022-10-20 20:46] VITALS: BP 102/69; TEMP 99.1; O2SAT 98
== END 2022-10-20 21:07 | disposition home or self-care (01) ==
LOC: M ED 17:00
DX: E83.42 Hypomagnesemia (principal); F41.0 Panic disorder [episodic paroxysmal anxiety]; R00.2 Palpitations; I10 Essential (primary) hypertension; F41.9 Anxiety disorder, unspecified; F10.10 Alcohol abuse, uncomplicated; K21.9 Gastro-esophageal reflux disease without esophagitis; Z85.42 Personal history of malignant neoplasm of other parts of uterus; F17.200 Nicotine dependence, unspecified, uncomplicated; Z79.899 Other long term (current) drug therapy; Z88.0 Allergy status to penicillin
CPT/HCPCS: 80048; 82550; 82553; 83735; 84484; 85025; 93005; 93041; 94760; 96365; 99285; J3475